=== PATIENT | male | born 1955 | race Caucasian/White ===

== ENCOUNTER 2018-03-26 13:07 | Inpatient (IN) | payer BC ==
[~2018-03-26] VITALS: Ht 177.8 cm; Wt 92.1 kg
--- OUTSIDE RECORDS SUMMARY | 2018-03-26 13:10 | XMS REPORT ---
Author Author [facility] Address Unknown Phone Unavailable Care Team Providers Care Nursery Supervisor Name Role Phone Unavailable Unavailable Payers Payer Name Policy Type Policy Number Effective Date Expiration Date Problems This patient has no known problems. Allergies, Adverse Reactions, Alerts Allergy Name Allergy Type Status Severity Reaction(s) Onset Date Inactive Date Treating Clinician Comments No Known Allergies DA Active U 2018-03-16 00:00:00 No Known Contrast Allergies DA Active U 2003-10-25 00:00:00 No Known Drug Allergies DA Active U 2003-10-25 00:00:00 No Known Food Allergies DA Active U 2003-10-25 00:00:00 No Known Other Allergies DA Active U 2003-10-25 00:00:00 Medications This patient has no known medications.
[2018-03-26] MEDS ORDERED: ASPIRIN 81 MG CHEW TAB PO ONE ×2 (13:30→16:00)
[2018-03-26] MEDS ORDERED: IPRATROPIUM BROMIDE 0.02% 2.5 ML NEB NEB STA (13:33)
[2018-03-26] MEDS ORDERED: ALBUTEROL SULF 0.083% NEB SOLN 3 ML NEB NEB STA (13:33)
[2018-03-26] MEDS ORDERED: SODIUM CHLORIDE 0.9% 1000ML 1,000 ML IV STA (13:44)
[2018-03-26] MEDS ORDERED: METHYLPREDNISOLONE SOD SUCC 125 MG/2ML VIAL IV ONE (13:45)
[2018-03-26 13:46] LABS: BASOPHILS % 0.2 % (0.0-1.0); EOSINOPHILS % 0.1 % (0.0-6.0); HEMATOCRIT 41.3 % (38.2-49.6); HEMOGLOBIN 14.6 g/dL (14.0-18.0); LYMPHOCYTES # (AUTO) 1.5 (1.0-3.2); LYMPHOCYTES % 8.3 % (18.0-39.1); MEAN CORPUSCULAR HEMOGLOBIN 30.5 pg (28-32); MEAN CORPUSCULAR HGB CONC 35.4 g/dL (31-35); MEAN CORPUSCULAR VOLUME 86.4 fL (81-99); MONOCYTES # (AUTO) 1.7 (0.2-0.8); MONOCYTES % 9.5 % (4.4-11.3); NEUTROPHILS # (AUTO) 13.8 (2.1-6.9); NEUTROPHILS % 79.3 % (38.7-80.0); PLATELET COUNT 113 x10e3/uL (140-360); RED BLOOD COUNT 4.78 x10e6/uL (4.3-5.7); RED CELL DISTRIBUTION WIDTH 12.7 % (11.7-14.4)
[2018-03-26 13:57] LABS: ALBUMIN 2.8 g/dL (3.5-5.0); ALBUMIN/GLOBULIN RATIO 0.8 (0.8-2.0); CALCIUM 8.2 mg/dL (8.4-10.2); CREATININE, SERUM 1.55 mg/dL (0.72-1.25)
--- NOTE | 2018-03-26 13:57 | Diagnostic Imaging Report ---
Frontal and lateral views of the chest. HISTORY: Possible pneumonia, cough, fever COMPARISON: None available. DISCUSSION: Lungs: Low lung volumes result in bibasilar vascular crowding, accentuation of the pulmonary interstitial markings, central pulmonary vasculature, and the cardiac silhouette. Allowing for these limitations, the findings are as follows: Mild elevation of the left hemidiaphragm. Bilateral increased interstitial markings in a peribronchial distribution. Mild volume loss at the left lung base with more confluent opacity. No evidence of a consolidative pneumonia or pulmonary alveolar edema. Pleura: Trace left pleural effusion. Heart and mediastinum: The cardiomediastinal silhouette appears unremarkable. Bones and soft tissues: Appear unremarkable. IMPRESSION: 1. Diffuse bilateral patchy interstitial and airspace opacities, considerations include a viral respiratory tract infection versus bronchopneumonia in the appropriate setting. 2. Low lung volumes and mild left basilar atelectasis. Signed by: Dr. Toan Jo D.O., M.M.M. on 03/26/2018 1:54 PM
[2018-03-26 14:04] LABS: CREATINE KINASE MB 2.2 ng/mL (0-5.0)
[2018-03-26 14:18] LABS: ABG HCO3 24 mmol/L (23-28); ABG PCO2 35 mmHg (41-51); ABG PH 7.45 (7.31-7.41); ABG PO2 56 mmHg (80-105)
[2018-03-26 15:14] LABS: BAND NEUTROPHILS % (MANUAL) 2 %; LYMPHOCYTES % (MANUAL) 15 % (19-48); MONOCYTES % (MANUAL) 9 % (3.4-9.0); NEUTROPHILS % (MANUAL) 74 % (40-74)
[2018-03-26 15:15] LABS: PLATELET ESTIMATE SLIGHTLY DECREASED; PLATELET MORPHOLOGY COMMENT NORMAL; RBC MORPHOLOGY COMMENT NORMAL
--- NOTE | 2018-03-26 15:52 | Diagnostic Imaging Report ---
CT CHEST WITH CONTRAST HISTORY: Shortness of breath, cough COMPARISON: Chest radiograph March 26, 2018 TECHNIQUE: CT scan of the chest WITH intravenous contrast, using PE protocol. The chest was scanned utilizing a multidetector helical scanner from the lung apex through the level of the adrenal glands. Thin section reconstructions were obtained with special concentration on the pulmonary arteries. IV CONTRAST: 100 cc of Isovue-370. PROTOCOL: PE RADIATION DOSE: Total DLP: 546.14 mGy*cm Dose modulation, iterative reconstruction, and/or weight based adjustment of the mA/kV was utilized to reduce the radiation dose to as low as reasonably achievable. COMPLICATIONS: None DISCUSSION: Lungs: Diffuse bilateral patchy interstitial and groundglass opacities, most notably in the right perihilar, right lower lobe and left lower lobe. Paraseptal emphysema. Numerous superimposed nodular opacities, civil rights representative examples include * Right upper lobe irregular 8 mm nodule (series 3 image 41). * Right pleural-based upper lobe 4 mm nodule (series 3 image 50). * Right middle lobe 10 mm nodule (series 3 image 67). * Right lower lobe 32 x 17 mm (series 3 image 58). * Left upper lobe 8 mm (series 3 image 36). * Left lower lobe 8 mm (series 3 image 36). * Left upper lobe 11 mm (series 3 image 42). * Left lower lobe 9 mm (series 3 image 51). Diffuse bronchial wall thickening. Vessels: A near complete to complete occlusion of a right lower lobe segmental artery (series 2 images 65 through 67). A small nonocclusive filling defect within a left lower lobe segmental branch (series 2 images 63-65). The pulmonary artery is within the upper limits of normal. Airways: The major airways are clear. Pleura: Trace left intermediate pleural fluid versus pleural thickening. Heart and mediastinum: The cardiac size is normal. Small low-density pericardial effusion. Abdomen: Limited evaluation of the upper abdomen. A partially visualized 5 mm nonobstructing calculus near the superior pole of the left kidney. Lymph nodes: No pathologically enlarged lymph node. Bones: A 15 mm sclerotic density within the posterior inferior aspect of T8. Mild accentuation of the thoracic kyphosis and multilevel degenerative disc changes. Soft tissues: Unremarkable IMPRESSION: 1. Bilateral segmental lower lobe pulmonary emboli, as detailed above. 2. Bilateral patchy interstitial and groundglass opacities, consider multifocal pneumonia with the possibility of superimposed small areas of infarction given the pulmonary emboli.. 2. Superimposed pulmonary nodules measuring up to 32 x 17 mm may reflect an evolving infectious or inflammatory process, but are worrisome for metastatic disease. Recommend short-term follow-up CT of the chest without contrast to evaluate for resolution. 3. Additionally, a 15 mm sclerotic density within the T8 vertebral body is further worrisome for metastatic disease. 4. Paraseptal emphysema and nonspecific bronchitis. Discussed with ACOSTA nIfante via phone on March 26, 2018 at 1448. The provider verbalizes an understanding. Signed by: Dr. Toan Jo D.O., M.M.M. on 03/26/2018 3:49 PM
[2018-03-26] MEDS ORDERED: AZITHROMYCIN 500MG/SOD CHL 0.9% 250ML BAG IV SCH (16:00)
[2018-03-26] MEDS ORDERED: CEFTRIAXONE SOD 1 GRAM/0.9% SOD CHL 50ML BAG IV SCH (16:00)
[2018-03-26] MEDS ORDERED: CEFEPIME 1GM/NS 0.9% 50 ML 50 ML IV ONE (16:15)
[2018-03-26] MEDS ORDERED: VANCOMYCIN 1GM/NS 250 ML 250 ML IV ONE (16:30)
[2018-03-26] MEDS ORDERED: ENOXAPARIN SOD INJ 60 MG/0.6 ML SYR SC SCH (17:00)
[2018-03-26 17:10] VITALS: BP 122/79
--- NOTE | 2018-03-26 17:10 | NUR ---
Received patient mid via wheelchair from ER. AAOX4 to time, person, place, situation. Respirations even and unlabored. O2 3L NC. Denies pain. Tele #1 ST 111 on continuous pulse ox 96%. Oriented patient to room. Instructed patient to use call light for assistance. Voiced understanding. Will continue to monitor.
[2018-03-26] MEDS ORDERED: LOSARTAN POTASS50 MG PO (17:14)
[2018-03-26 17:21] VITALS: BP 122/79
[2018-03-26 17:48] VITALS: BP 122/79
[2018-03-26] MEDS ORDERED: IOPAMIDOL 370 MG/ML 200 ML INFUS..BTL INJ ONE (18:32)
[2018-03-26] MEDS ORDERED: SODIUM CHLORIDE 0.9% 50ML 50 ML ONE (18:32)
[2018-03-26] MEDS ORDERED: SODIUM CHLORIDE 0.9% 250ML 0 ML ONE (18:33)
--- NOTE | 2018-03-26 18:36 | NUR ---
Kelly Reyes NP aware of CT results. See orders
[2018-03-26] MEDS ORDERED: ACETAMINOPHEN/CODEINE 300MG - 30MG TAB PO PRN (18:45)
[2018-03-26] MEDS ORDERED: ACETAMINOPHEN 325 MG TAB PO PRN (18:45)
[2018-03-26] MEDS ORDERED: ONDANSETRON HCL INJ 2MG/ML 2ML 2 MG/ML VIAL IV PRN (18:45)
[2018-03-26] MEDS ORDERED: HYDRALAZINE HCL 20 MG/ML VIAL IV PRN (18:45)
[2018-03-26] MEDS ORDERED: SODIUM CHLORIDE 0.9% 1000ML 1,000 ML ONE ×2 (18:47→23:50)
[2018-03-26] MEDS: AZITHROMYCIN 500MG/NS 250 ML 250 ML IV SCH (18:59)
[2018-03-26] MEDS: ALBUTEROL/IPRATROPIUM 3 ML NEB NEB SCH ×2 (19:00→22:55)
--- NOTE | 2018-03-26 19:01 | NUR ---
Report given to oncoming nurse of patients status. No s/s of acute distress noted.
--- NOTE | 2018-03-26 19:20 | NUR ---
Received patient awake on bed, family member at the bedside, patient is not in distress, no complaints of pain. Call light within easy reach, need sputum sample patient instructed and verbalized understanding. Will continue to monitor
[2018-03-26 19:54] VITALS: BP 101/66
[2018-03-26 20:55] VITALS: BP 101/66
[2018-03-26] MEDS ORDERED: GUAIFENESIN 600 MG TAB PO PRN (21:00)
[2018-03-26 23:49] VITALS: BP 116/78
[2018-03-27 02:45] LABS: CREATINE KINASE MB 1.8 ng/mL (0-5.0)
[2018-03-27] MEDS: ALBUTEROL/IPRATROPIUM 3 ML NEB NEB SCH ×6 (03:20→23:10)
[2018-03-27 04:00] VITALS: BP 115/68
[2018-03-27 07:19] LABS: BASOPHILS % 0.1 % (0.0-1.0); HEMATOCRIT 36.4 % (38.2-49.6); HEMOGLOBIN 13.2 g/dL (14.0-18.0); LYMPHOCYTES # (AUTO) 0.8 (1.0-3.2); LYMPHOCYTES % 3.7 % (18.0-39.1); MEAN CORPUSCULAR HEMOGLOBIN 31.6 pg (28-32); MEAN CORPUSCULAR HGB CONC 36.3 g/dL (31-35); MEAN CORPUSCULAR VOLUME 87.1 fL (81-99); NEUTROPHILS # (AUTO) 18.6 (2.1-6.9); NEUTROPHILS % 89.9 % (38.7-80.0); PLATELET COUNT 129 x10e3/uL (140-360); RED BLOOD COUNT 4.18 x10e6/uL (4.3-5.7); RED CELL DISTRIBUTION WIDTH 12.8 % (11.7-14.4)
[2018-03-27 07:48] LABS: CREATININE, SERUM 1.24 mg/dL (0.72-1.25); MAGNESIUM 2.2 MG/DL (1.3-2.1)
[2018-03-27 08:00] VITALS: BP 137/79
[2018-03-27 08:10] VITALS: BP 137/79
[2018-03-27] MEDS: LOSARTAN POTASSIUM 25 MG TAB PO SCH (08:10)
[2018-03-27] MEDS: OYST-CAL-D 500MG TABLET PO SCH ×2 (08:10→17:21)
[2018-03-27] MEDS: METHYLPREDNISOLONE SOD SUCC 40 MG/ML VIAL 1ML IV SCH ×2 (08:10→21:36)
--- NOTE | 2018-03-27 08:10 | NUR ---
PT RECEIVED SITTING UP IN BED, AA/O X3. NO C/O AT PRESENT. ASSESSMENT COMPLETE, VSS, SPO2 95% 3L. NONPRODUCTIVE COUGH. SEEN BY ACOSTA WELCH. DISCUSSED PLAN FOR THE DAY.
[2018-03-27 08:33] LABS: CREATINE KINASE 38 IU/L (30-200)
--- NOTE | 2018-03-27 09:41 | Consultation ---
DATE OF CONSULTATION: March 27, 2018 Thank you, Dr. Willoughby, for this consultation. This is a 62-year-old pleasant gentleman with a past medical history including hypertension and smoking. Currently, in the hospital with worsening shortness of breath, fatigue, lethargy, and tiredness. Symptoms started almost 2 months back. He was followed by PCP and recommendation to get CT scan. Patient went to [facility], but could not get CT scan. He was followed with primary doctor, and continued on nebulizer and medications. He also required antibiotic treatment. He was referred to MD Lozoya for further management. The patient was not diagnosed with any malignancy. There was concern about lung nodules. Patient is currently in the hospital with worsening shortness of breath and cough. He has been wheezing. No hematemesis, melena, hematochezia, or hemoptysis. No fever or chills reported. At admission, the patient had a CT scan, which shows bilateral patchy interstitial ground-glass opacities. It is also shows bilateral lower lobe pulmonary emboli. There was superimposed pulmonary nodules. The patient also has some sclerotic density in T8 vertebral body. The patient currently is started on antibiotics and Lovenox. I am currently following for further management. PAST MEDICAL HISTORY: Hypertension. ALLERGIES: NKA. MEDICATIONS: List is reviewed. SOCIAL HISTORY: The patient is a smoker. Started smoking at the age of 13 years. Recently, discontinued smoking. No alcohol or drugs. REVIEW OF SYSTEMS: A 12-point review of systems as per HPI. FAMILY HISTORY: Reviewed and noncontributory. PHYSICAL EXAMINATION GENERAL: Alert, awake and communicative. HEENT: Normocephalic and atraumatic. Sclerae pink. Conjunctivae clear. NECK: Supple. CHEST: Decreased breath sounds in the bases. CARDIOVASCULAR: Regular rate and rhythm. ABDOMEN: Soft and nontender. EXTREMITIES: No edema. LABS AND IMAGING: Reviewed. ASSESSMENT AND PLAN 1. The patient with a history of hypertension: Currently, in the hospital with worsening shortness of breath and cough. Workup so far showed pulmonary embolism. The patient has bilateral pulmonary emboli. The patient was started on Lovenox. Recommendation to continue Lovenox. The patient might need pulmonary followup and bronchoscopy. Switch to oral anticoagulation and discharge. 2. Pulmonary nodule: Concerning especially with a history of smoking. The patient will benefit from a PET computerized tomography as an outpatient. The patient might require possible bronchoscopy. 3. Pneumonia: The patient already started on azithromycin. Will monitor the patient. 4. Chronic obstructive pulmonary disease: The patient is on methylprednisolone and nebulizer treatment. Will continue current care. Will continue to follow the patient closely. Job#: [id number] RI
[2018-03-27 12:05] VITALS: BP 122/72
--- NOTE | 2018-03-27 14:56 | NUR ---
SOCIAL WORK INITIAL ASSESSMENT Staff Development Coordinator Rn to bedside to discuss plan of care with patient/family. CM/SW role and care transitions discussed. Anticipated discharge plan discussed along with duration of care. CM/SW discussed patients right to make decisions in care. CM/SW work hours given. Patient lives: IN HOUSE IN [place] WITH FAMILY AND IN APARTMENT UPSTAIRS HERE FOR WORK BY SELF Admit/Transfer: VIA ED FROM APARTMENT POA/Emergency contact: IS A[place]ANDRI[place] [phone] Current/Previous Home Health: NONE PCP/Follow-up Care: [facility] Current/Previous DME: NONE Other Services: QUIT SMOKING WITH PATCH 8 WEEKS AGO Employment Status: [email or web address] ([employer] Areas of Concerns: NONE Referral Needs: NA Education Needs: NA IMM/NATARAJAN given and signed (if applicable): NA Goal for discharge:STATES WILL RETURN TO [place] AND HOME WITH FAMILY UPON DISCHARGE CM/SW left business card at the bedside with contact information. Name and number was also written on the patients whiteboard. Patient verbalized understanding of discussion. CM will follow-up with ongoing discharge and transition of care needs.
--- NOTE | 2018-03-27 15:39 | NUR ---
Nutrition Intervention Note RD Recommendation(s) for Physician: -Rec regular diet as medically appropriate -Consider Ensure Compact with each meal if PO <50% -Obtain daily weight Plan of Care: RD following, monitoring for tolerance and adequacy Nutrition reason for involvement: Nutrition Risk Trigger MST RD Assessment 03/27 Chart reviewed. 62yo M, who is admitted for shortness of breath and cough. Visited pt in the room. Pt reports having good appetite with 100% observed lunch intake. Pt has been eating like usual but noticed some weight loss in the last month due to flu. His reported UBW ~195lbs; pt thinks he has lost ~10lbs in a months. (5% weight loss in 1 month significant) No GI complains noted. LBM 03/26, loose stool per pt. Pt denies any chewing or swallowing difficulty. No sign of muscle or fat loss upon NFPA. Will continue to monitor and follow. Principal Problems/Diagnoses: pulmonary embolism, PNA, COPD PMH: HTN GI: LBM 03/26, loose stool per pt Skin: intact Labs: (03/27) Na 133 L, BUN 27 H, Glucose 133 H, Ca 8.0 L, Mg 2.2 H Meds: Solu-medrol, abx Ht: 70in Wt: 183lb BMI: 26.3kg/m2 IBW: 166lb Malnutrition Evaluation (03/27/18) The patient does not meet criteria for a specified degree of malnutrition at this time. Will re-evaluate at follow-up as appropriate. Energy intake: No change Weight loss: 5% in 1 month (Acute) Fat loss: None Muscle loss: None Supporting Evidence: Fluid accumulation: unable to evaluate Functional Status: no changes Nutrition Prescription (Diet Order): cardiac diet Estimated Nutritional Needs: Calories: 1826 2075kcal(22-25kcal/kg/d) Weight used : Actual weight Protein: 83 125g(1-1.5g/kg/d) Weight used: Actual weight Diet Adequacy: Meeting calorie needs, Meeting protein needs Diet Education Needs Assessment: Diet education not indicated. Nutrition Care Level: low Nutrition Diagnosis: None at this time. Goal: Patient will meet 75-100% of estimated needs by follow up Progress: Goal Met Interventions: General healthful diet Monitoring/Evaluation: Total energy intake, Total protein intake, diet, Weight change Signed: Becky Souza, MS, RD, LD
[2018-03-27 16:30] VITALS: BP 119/75
[2018-03-27] MEDS: AZITHROMYCIN 500MG/NS 250 ML 250 ML IV SCH (17:21)
[2018-03-27] MEDS: PANTOPRAZOLE SOD 40 MG TABEC PO SCH (17:21)
[2018-03-27 20:14] VITALS: BP 125/73
[2018-03-27] MEDS: ENOXAPARIN INJ 80 MG/0.8 ML SYR SC SCH (21:36)
[2018-03-28] VITALS (7 sets, daily range): BP systolic 111–131; BP diastolic 70–80
[2018-03-28] MEDS: ALBUTEROL/IPRATROPIUM 3 ML NEB NEB SCH ×7 (02:50→23:28)
[2018-03-28 06:17] LABS: BASOPHILS % 0.1 % (0.0-1.0); HEMATOCRIT 41.1 % (38.2-49.6); HEMOGLOBIN 13.3 g/dL (14.0-18.0); LYMPHOCYTES # (AUTO) 0.7 (1.0-3.2); LYMPHOCYTES % 2.5 % (18.0-39.1); MEAN CORPUSCULAR HGB CONC 32.4 g/dL (31-35); MEAN CORPUSCULAR VOLUME 92.6 fL (81-99); MONOCYTES # (AUTO) 0.6 (0.2-0.8); MONOCYTES % 1.9 % (4.4-11.3); NEUTROPHILS # (AUTO) 27.5 (2.1-6.9); NEUTROPHILS % 93.9 % (38.7-80.0); PLATELET COUNT 159 x10e3/uL (140-360); RED BLOOD COUNT 4.44 x10e6/uL (4.3-5.7); RED CELL DISTRIBUTION WIDTH 12.9 % (11.7-14.4)
[2018-03-28 06:20] LABS: ANION GAP 16.7 mmol/L (8-16); CALCIUM 8.3 mg/dL (8.4-10.2); CREATININE, SERUM 1.48 mg/dL (0.72-1.25); MAGNESIUM 2.7 MG/DL (1.3-2.1); POTASSIUM 4.7 mmol/L (3.5-5.1)
--- NOTE | 2018-03-28 07:00 | NUR ---
Report received patient is awake and alert x3 in NAD. POC discussed. Patient instructed to call for assistance as needed and verbalized understanding. Call patrick within reach.
[2018-03-28 07:41] LABS: LYMPHOCYTES % (MANUAL) 4 % (19-48); MONOCYTES % (MANUAL) 2 % (3.4-9.0); NEUTROPHILS % (MANUAL) 94 % (40-74)
[2018-03-28 07:42] LABS: ANISOCYTOSIS SLIGHT; HYPOCHROMASIA SLIGHT; PLATELET ESTIMATE ADEQUATE; PLATELET MORPHOLOGY COMMENT NORMAL; RBC MORPHOLOGY COMMENT NORMAL
[2018-03-28] MEDS: PANTOPRAZOLE SOD 40 MG TABEC PO SCH ×2 (08:26→16:30)
[2018-03-28] MEDS: ENOXAPARIN INJ 80 MG/0.8 ML SYR SC SCH (08:27)
[2018-03-28] MEDS: METHYLPREDNISOLONE SOD SUCC 40 MG/ML VIAL 1ML IV SCH ×2 (08:27→17:00)
[2018-03-28] MEDS: OYST-CAL-D 500MG TABLET PO SCH ×2 (08:27→16:43)
[2018-03-28] MEDS: LOSARTAN POTASSIUM 25 MG TAB PO SCH (08:27)
--- NOTE | 2018-03-28 09:27 | Progress Note ---
DATE: March 28, 2018 Patient was seen and examined today. Patient appears comfortable. Shortness of breath has improved. He still requires oxygen. No chest pain. PHYSICAL EXAMINATION GENERAL: Alert, awake and communicative. HEENT: Normocephalic and atraumatic. Sclerae pink. Conjunctivae clear. NECK: Supple. CHEST: Decreased breath sounds in the bases. CARDIOVASCULAR: Regular rate and rhythm. ABDOMEN: Soft. EXTREMITIES: No edema. LABS AND IMAGING: Reviewed. ASSESSMENT AND PLAN 1. The patient has a history of hypertension. Admitted with shortness of breath. Workup is consistent with a pulmonary embolism, also pneumonia and chronic obstructive pulmonary disease. Patient is currently on Lovenox. Plan to switch from Lovenox to Xarelto today. We will monitor the patient closely. 2. Pulmonary nodule. The patient has a history of smoking, possible malignancy. PET scan as an outpatient. Patient already has an appointment to follow at [facility]. 3. Pneumonia. The patient is currently on antibiotic treatment. 4. Chronic obstructive pulmonary disease. The patient is currently on nebulizer and methylprednisolone treatment. 5. Leukocytosis, likely steroidal. 6. Continue current care. Will follow the patient. Job#: [id number]
--- NOTE | 2018-03-28 10:45 | NUR ---
Chris written information provided to patient.
[2018-03-28] MEDS: RIVAROXABAN 15 MG TABLET PO SCH ×2 (10:51→16:43)
--- NOTE | 2018-03-28 14:20 | NUR ---
Visit made by the Spiritual Care Department Pastoral Visitor, Gracie Roman. Pt out of room and no family at bedside. A card was left at the bedside to indicate a missed visit from a member of the Spiritual Care team and to inform the pt and family of the availability of a Patient Scheduling Coordinator 24 hours a day/7 days a week. A fixer boarding room will follow up as able. JAIRON WEN Patient Scheduling Coordinator Spiritual Care Department O: [phone] Pager: [phone] ([phone] number calling from)
--- NOTE | 2018-03-28 14:43 | NUR ---
RCD PT FROM OBSERVATION BY WHEEL CHAIR PT IS ALERT AND ORIENTED VITALS CHECKED PT RESTING ON BED FAMILY AT BED SIDE BED LOW AND LOCKED CALL LIGHT IN REACH
--- NOTE | 2018-03-28 14:45 | NUR ---
Report given to Lois Lomax RN. Patient moved to room 209 with all belongings in stable condition.
[2018-03-28] MEDS ORDERED: SODIUM CHLORIDE 0.9% 250ML 250 ML ONE (17:07)
[2018-03-28] MEDS: AZITHROMYCIN 500MG/NS 250 ML 250 ML IV SCH (17:41)
--- NOTE | 2018-03-28 19:00 | NUR ---
PT RESTING ON BED BED SIDE REPORT GIVEN TO ONCOMING NURSE
--- NOTE | 2018-03-28 19:18 | NUR ---
Patient received sitting in bed. AAO x 4. Patient had no complaints of pain. Respirations even and non-labored. Patient instructed to call for assistance when needed. Call light within reach.
[2018-03-29] VITALS (8 sets, daily range): BP systolic 111–124; BP diastolic 67–75
[2018-03-29] MEDS: METHYLPREDNISOLONE SOD SUCC 40 MG/ML VIAL 1ML IV SCH ×2 (02:30→09:00)
[2018-03-29] MEDS: ALBUTEROL/IPRATROPIUM 3 ML NEB NEB SCH ×5 (03:00→23:00)
--- NOTE | 2018-03-29 04:09 | NUR ---
Blood specimen sent to lab for analysis.
[2018-03-29 04:12] LABS: BASOPHILS % 0.1 % (0.0-1.0); HEMATOCRIT 36.7 % (38.2-49.6); HEMOGLOBIN 12.2 g/dL (14.0-18.0); LYMPHOCYTES # (AUTO) 0.7 (1.0-3.2); LYMPHOCYTES % 3.2 % (18.0-39.1); MEAN CORPUSCULAR HEMOGLOBIN 30.3 pg (28-32); MEAN CORPUSCULAR HGB CONC 33.2 g/dL (31-35); MEAN CORPUSCULAR VOLUME 91.3 fL (81-99); MONOCYTES # (AUTO) 0.6 (0.2-0.8); MONOCYTES % 2.7 % (4.4-11.3); NEUTROPHILS # (AUTO) 19.5 (2.1-6.9); NEUTROPHILS % 93.2 % (38.7-80.0); PLATELET COUNT 163 x10e3/uL (140-360); RED BLOOD COUNT 4.02 x10e6/uL (4.3-5.7); RED CELL DISTRIBUTION WIDTH 12.7 % (11.7-14.4)
[2018-03-29 04:26] LABS: ANION GAP 13.8 mmol/L (8-16); CALCIUM 8.4 mg/dL (8.4-10.2); CREATININE, SERUM 1.39 mg/dL (0.72-1.25); MAGNESIUM 2.1 MG/DL (1.3-2.1); POTASSIUM 4.8 mmol/L (3.5-5.1)
--- NOTE | 2018-03-29 07:00 | NUR ---
RCD PT AT BED PT IS ALERT AND ORIENTED PT RESTING ON BED IV PATENT FAMILY AT BED SIDE BED LOW AND LOCKED CALL LIGHT IN REACH
[2018-03-29] MEDS: PANTOPRAZOLE SOD 40 MG TABEC PO SCH ×2 (07:30→16:30)
[2018-03-29] MEDS: RIVAROXABAN 15 MG TABLET PO SCH ×2 (09:00→16:46)
[2018-03-29] MEDS: LOSARTAN POTASSIUM 25 MG TAB PO SCH (09:00)
[2018-03-29] MEDS: OYST-CAL-D 500MG TABLET PO SCH ×2 (09:00→16:46)
--- NOTE | 2018-03-29 09:14 | Progress Note ---
DATE: March 29, 2018 Patient was seen and examined today. Patient appears comfortable. No worsening event noted. Condition is improving. The patient is currently on anticoagulation and tolerating it very well. PHYSICAL EXAMINATION GENERAL: Alert, awake and communicative. HEENT: Normocephalic and atraumatic. Sclerae are pink. Conjunctivae are clear. NECK: Supple. CHEST: Decreased breath sounds in the bases. ABDOMEN: Soft. EXTREMITIES: No edema. LABS AND IMAGING: Reviewed. ASSESSMENT AND PLAN: The patient has a history of hypertension. Admitted with shortness of breath. Workup is consistent with a pulmonary embolism. The patient also has pulmonary nodule. The patient is currently on anticoagulation and tolerating it very well. Supposed to follow with MD Lozoya for pulmonary nodule. Clinical condition is improving. Continue on antibiotic for pneumonia. Will monitor the patient closely. Job#: [id number]
[2018-03-29] MEDS: LORATADINE 10 MG TAB PO SCH (09:30)
[2018-03-29] MEDS ORDERED: ZITHROMAX500 MG PO (09:33)
[2018-03-29] MEDS ORDERED: PROAIR HFA INH8.5 GM INH (09:33)
[2018-03-29] MEDS ORDERED: MUCINEX600 MG PO (09:33)
[2018-03-29] MEDS ORDERED: LORATADINE10 MG PO (09:33)
[2018-03-29] MEDS ORDERED: CEFUROXIME500 MG PO (09:33)
[2018-03-29] MEDS ORDERED: PREDNISONE5 MG PO (09:33)
[2018-03-29] MEDS ORDERED: XARELTO PO (09:41)
--- NOTE | 2018-03-29 10:31 | Diagnostic Imaging Report ---
EXAMINATION: CHEST SINGLE (PORTABLE) INDICATION: Pneumonia. COMPARISON: CT Chest 03/26/2018 and chest radiograph 03/26/2018. FINDINGS: TUBES and LINES: None. LUNGS: Low lung volumes which decreases sensitivity and specificity for pathology. There are patchy opacities at the bilateral lung bases and right upper lung. There is perihilar fullness and indistinctness of the pulmonary vasculature. PLEURA: No pleural effusion or pneumothorax. Mild elevation of left hemidiaphragm is unchanged. HEART AND MEDIASTINUM: The cardiomediastinal silhouette is unremarkable. BONES AND SOFT TISSUES: No acute osseous lesion. Soft tissues are unremarkable. UPPER ABDOMEN: No free air under the diaphragm. IMPRESSION: Low lung volumes with persistent multifocal opacities, which may reflect a combination of pneumonia and pulmonary edema. Pulmonary infarct is also possible as noted on CT from 03/26/2018. Signed by: Dr. Nieves Boykin MD on 03/29/2018 10:27 AM
--- NOTE | 2018-03-29 14:30 | NUR ---
CM SPOKE TO PATIENT AT BEDSIDE REGARDING PATIENT PLAN OF CARE AND DISCHARGE PLANNING. PATIENT AWARE THAT THEY WILL NEED HOME OXYGEN DELIVERED TO BEDSIDE PRIOR TO DISCHARGE FROM THE HOSPITAL. PATIENT EDUCATED ON HOME OXYGEN AND GIVEN CHOICES FOR HOME OXYGEN. PATIENT CHOSE [facility] TO SERVICE OXYGEN NEEDS. CHOICE LETTER SIGNED AND PLACED IN CHART. [facility] AT [phone]. PENDING INSURANCE APPROVAL AND DELIVERY TO BEDSIDE PRIOR TO DISCHARGE. [facility] Address: [address], [place] [address] (f) [phone]
[2018-03-29] MEDS: AZITHROMYCIN 500MG/NS 250 ML 250 ML IV SCH (17:35)
--- NOTE | 2018-03-29 18:40 | NUR ---
PATIENT GOT THE HOME OXYGEN NOTIFIED REBEKAH SHE SAID PT IS NOT READY TO GO HOME
--- NOTE | 2018-03-29 18:43 | NUR ---
PT RESTING ON BED BED SIDE REPORT GIVEN TO ONCOMING NURSE
--- NOTE | 2018-03-29 19:15 | NUR ---
Patient received sitting up in bed. AAO x 4. Family at bedside. Patient had no complaints of pain. Respirations even and non-labored. Patient instructed to call for assistance when needed. Call light within reach.
[2018-03-29] MEDS ORDERED: METHYLPREDNISOLONE SOD SUCC 40 MG/ML VIAL 1ML IV SCH (21:00)
[2018-03-30] VITALS (7 sets, daily range): BP systolic 105–124; BP diastolic 68–79
[2018-03-30] MEDS: ALBUTEROL/IPRATROPIUM 3 ML NEB NEB SCH ×6 (02:50→22:15)
--- NOTE | 2018-03-30 03:28 | NUR ---
Blood specimen sent to lab.
[2018-03-30 04:04] LABS: BASOPHILS % 0.1 % (0.0-1.0); HEMATOCRIT 38.3 % (38.2-49.6); HEMOGLOBIN 12.6 g/dL (14.0-18.0); LYMPHOCYTES # (AUTO) 0.5 (1.0-3.2); LYMPHOCYTES % 2.4 % (18.0-39.1); MEAN CORPUSCULAR HEMOGLOBIN 29.9 pg (28-32); MEAN CORPUSCULAR HGB CONC 32.9 g/dL (31-35); MONOCYTES # (AUTO) 0.4 (0.2-0.8); NEUTROPHILS # (AUTO) 19.5 (2.1-6.9); NEUTROPHILS % 94.4 % (38.7-80.0); PLATELET COUNT 169 x10e3/uL (140-360); RED BLOOD COUNT 4.21 x10e6/uL (4.3-5.7); RED CELL DISTRIBUTION WIDTH 12.8 % (11.7-14.4)
[2018-03-30 04:29] LABS: ANION GAP 14.1 mmol/L (8-16); CALCIUM 8.5 mg/dL (8.4-10.2); CREATININE, SERUM 1.37 mg/dL (0.72-1.25); MAGNESIUM 2.1 MG/DL (1.3-2.1); POTASSIUM 5.1 mmol/L (3.5-5.1)
--- NOTE | 2018-03-30 07:13 | NUR ---
Shift report given to oncoming nurse. Patient in stable condition.
--- NOTE | 2018-03-30 07:18 | NUR ---
pt awake resp even and unlabored at this time, pt arousal to name, pt has no c/o pain when asked, call light in reach, will cont to monitor.
[2018-03-30] MEDS: PANTOPRAZOLE SOD 40 MG TABEC PO SCH ×2 (07:30→17:32)
[2018-03-30] MEDS: OYST-CAL-D 500MG TABLET PO SCH ×2 (09:00→17:32)
[2018-03-30] MEDS: PREDNISONE 20 MG TAB PO SCH (09:00)
[2018-03-30] MEDS: LORATADINE 10 MG TAB PO SCH (09:00)
[2018-03-30] MEDS: RIVAROXABAN 15 MG TABLET PO SCH ×2 (09:00→17:32)
[2018-03-30] MEDS: LOSARTAN POTASSIUM 25 MG TAB PO SCH (09:00)
[2018-03-30] MEDS: LEVOFLOXACIN 750MG/D5W 150ML 150 ML IV SCH (10:49)
[2018-03-30] MEDS ORDERED: ALBUTEROL SULFATE HFA 8GM INHALATION AEROSOL INH PRN (16:00)
--- NOTE | 2018-03-30 16:42 | Progress Note ---
DATE: PULMONARY PROGRESS NOTE I am covering for Dr. Willoughby today. The patient reports feeling better. He has less dyspnea and less wheezing. He does not have any fever. OBJECTIVE VITALS: The patient is afebrile. The blood pressure is 105/68, and the pulse is 93. The saturation is 98% on 2 liters. HEENT: Examination shows no facial swelling or erythema. LYMPHATIC: No submandibular, cervical or supraclavicular adenopathy. CARDIAC: Regular rate and rhythm with normal S1 and S2. LUNGS: Auscultation of the lungs reveals clear breath sounds bilaterally. There is no wheezing. ABDOMEN: Soft and nontender. There is no rebound or guarding. EXTREMITIES: No leg edema or calf tenderness. There is no cyanosis or clubbing. NEUROLOGIC: Exam shows no focal abnormalities. RADIOGRAPHIC DATA: Chest CT shows bilateral segmental lower lobe pulmonary emboli as well as patchy ground-glass opacities. There are pulmonary nodules that measure 3 x 2 cm in the lower lung eddy. There is also a sclerotic lesion in the T8 vertebral body worrisome for a bone metastasis. IMPRESSION 1. Pulmonary emboli. 2. Pulmonary nodules and sclerotic bone lesion concerning for carcinoma. 3. Leukocytosis. 4. Pulmonary infiltrates. PLAN 1. Patient will continue Xarelto at 15 mg b.i.d. for a full week and then switch to 20 mg a day. 2. Continue antibiotics as an outpatient along with prednisone taper. 3. Patient is scheduled to follow up at [facility] for a PET scan. Job#: [id number]
--- NOTE | 2018-03-30 19:28 | NUR ---
Patient sitting up in bed. AAO x 4. No complaints of pain. Respirations even and unlabored. Fall precautions maintained. Call light within reach.
--- NOTE | 2018-03-30 19:41 | NUR ---
report given to oncoming nurse for continued care.
[2018-03-31] VITALS: BP 106/65
[2018-03-31] MEDS: ALBUTEROL/IPRATROPIUM 3 ML NEB NEB SCH ×4 (03:25→11:30)
--- NOTE | 2018-03-31 03:30 | NUR ---
Blood specimen sent to lab for analysis.
[2018-03-31 04:00] VITALS: BP 102/66
[2018-03-31 04:20] LABS: BASOPHILS % 0.1 % (0.0-1.0); EOSINOPHILS % 0.1 % (0.0-6.0); HEMATOCRIT 37.6 % (38.2-49.6); LYMPHOCYTES # (AUTO) 1.4 (1.0-3.2); MEAN CORPUSCULAR HEMOGLOBIN 30.9 pg (28-32); MEAN CORPUSCULAR HGB CONC 34.6 g/dL (31-35); MEAN CORPUSCULAR VOLUME 89.3 fL (81-99); MONOCYTES # (AUTO) 1.1 (0.2-0.8); MONOCYTES % 7.3 % (4.4-11.3); NEUTROPHILS # (AUTO) 12.8 (2.1-6.9); NEUTROPHILS % 82.5 % (38.7-80.0); PLATELET COUNT 170 x10e3/uL (140-360); RED BLOOD COUNT 4.21 x10e6/uL (4.3-5.7); RED CELL DISTRIBUTION WIDTH 12.9 % (11.7-14.4)
[2018-03-31 04:38] LABS: ANION GAP 13.4 mmol/L (8-16); CALCIUM 8.4 mg/dL (8.4-10.2); CREATININE, SERUM 1.48 mg/dL (0.72-1.25); MAGNESIUM 2.2 MG/DL (1.3-2.1); POTASSIUM 4.4 mmol/L (3.5-5.1)
--- NOTE | 2018-03-31 07:15 | NUR ---
PATIENT IS IN BED ASLEEP. BEDSIDE ROUNDS DONE. PATIENT HAS BEEN EXAMINED
[2018-03-31 08:00] VITALS: BP 117/74
[2018-03-31] MEDS ORDERED: PREDNISONE PEG (10:23)
[2018-03-31] MEDS ORDERED: LEVAQUIN500 MG PO (10:23)
--- NOTE | 2018-03-31 11:00 | NUR ---
DISCHARGED PATIENT, IV DISCONTINUED. FAMILY VERBALIZED UNDERSTANDING OF DISCHARGE INSTRUCTIONS. RX GIVEN TO PATIENT WITH THE DISCHARGE FOLDER.
[2018-03-31] MEDS: LOSARTAN POTASSIUM 25 MG TAB PO SCH (11:29)
[2018-03-31] MEDS: PANTOPRAZOLE SOD 40 MG TABEC PO SCH (11:29)
[2018-03-31] MEDS: LEVOFLOXACIN 750MG/D5W 150ML 150 ML IV SCH (11:29)
[2018-03-31] MEDS: LORATADINE 10 MG TAB PO SCH (11:29)
[2018-03-31] MEDS: PREDNISONE 20 MG TAB PO SCH (11:30)
[2018-03-31] MEDS: OYST-CAL-D 500MG TABLET PO SCH (11:30)
[2018-03-31] MEDS: RIVAROXABAN 15 MG TABLET PO SCH (11:30)
[2018-03-31 11:54] VITALS: BP 99/70
--- NOTE | 2018-03-31 12:23 | NUR ---
PATIENT WITH TANKS AT BEDSIDE. PATIENT TO DISCHARGE HOME WITH HOME OXYGEN FROM [facility]. PLEASE SEE PREVIOUS NOTE FOR ADDRESS AND PHONE NUMBERS.
--- NOTE | 2018-03-31 16:40 | Discharge Summary ---
ADMISSION DIAGNOSES 1. Community-acquired pneumonia. 2. Bilateral lower lobe pulmonary embolism. 3. Hypertension. 4. Pulmonary nodules. 5. Hypocalcemia. 6. Acute kidney injury versus chronic kidney disease. 7. Hyponatremia. 8. Transaminitis. DISCHARGE DIAGNOSES 1. Community-acquired pneumonia. 2. Bilateral lower lobe pulmonary embolism. 3. Hypertension. 4. Pulmonary nodules. 5. Hypocalcemia. 6. Acute kidney injury versus chronic kidney disease. 7. Hyponatremia. 8. Transaminitis. HISTORY: Patient with a history of high blood pressure. SURGICAL HISTORY: Left knee surgery times 4. FAMILY HISTORY: Noncontributory. SOCIAL HISTORY: Patient admits to quitting smoking about 2 months ago. He was smoking for about 20 years. He denies alcohol and illicit drug use. HOSPITAL COURSE: A 62-year-old male complains of shortness of breath and dry cough since February 2018. He went to his primary care and got a Z-Norbert and antibiotic shot, and other unknown meds on 2 different occasions with little improvement. Nothing improved or worsened the shortness of breath or cough. He denies productive cough, congestion, fever. He lives 3 hours away, and drives home every 2-3 days. He also traveled to [place] in December or January of 2017. He denies any lower limb swelling, erythema or pain. On admission, the patient was started on Zithromax, cefepime, nebs, Mucinex, and steroids, as well as Lovenox for the pulmonary embolism. Echo showed EF of 50% to 55%. Bilateral lower extremity venous Doppler negative. EKG showed sinus tach of 107. Chest x-ray showed diffuse bilateral opacities, interstitial and airspace opacities. Considerations include a viral respiratory tract infection versus bronchopneumonia. CT of the chest showed bilateral segmental lower lobe pulmonary emboli, bilateral patchy interstitial and ground-glass opacities. Consider multifocal pneumonia with the possibility of superimposed small areas of infarction given the pulmonary embolism. Superimposed pulmonary nodules measuring up to 32 x 17 mm may reflect an evolving infectious or inflammatory process, but are worrisome for metastatic disease. Additionally, a 15 mm sclerotic density within the T8 vertebral body is further worrisome for metastatic disease. Blood cultures were negative. Hematology/oncology consulted. Patient was switched to Xarelto 15 mg b.i.d., which he will take for 21 days, and follow up with hematology to change the dose after 21 days. Patient's antibiotics were switched to Levaquin. He is feeling much better once given the Levaquin. He will discharge home with prednisone, Claritin, Levaquin, Mucinex, and albuterol HFA inhaler. He will follow up with primary care in 1-2 weeks. Patient and understand discharge instructions and agreed to plan. Vital signs stable. Patient afebrile. Patient qualified for home oxygen, so case management set it up prior to discharge as well. DICTATED BY REBEKAH WILLIS NP Job#: [id number] RI
== END 2018-03-31 12:50 | disposition home or self-care (01) | DRG 177 ==
LOC: ER 13:07 → ERHOLD 16:09 → IMCU 17:04 → OBSVTOIN 03-27 09:46 → MED/SURG2 03-28 14:42
PROVIDERS: ADMIT Internal Medicine; ATTEND Internal Medicine
DX: J15.6 Pneumonia due to other Gram-negative bacteria (principal); I26.99 Other pulmonary embolism without acute cor pulmonale; N17.9 Acute kidney failure, unspecified; E87.1 Hypo-osmolality and hyponatremia; J44.0 Chronic obstructive pulmonary disease with (acute) lower respiratory infection; N18.4 Chronic kidney disease, stage 4 (severe); I10 Essential (primary) hypertension; R91.8 Other nonspecific abnormal finding of lung field; E83.51 Hypocalcemia; R00.0 Tachycardia, unspecified; I12.9 Hypertensive chronic kidney disease with stage 1 through stage 4 chronic kidney disease, or unspecified chronic kidney disease
CPT/HCPCS: 36415; 36600; 71045; 71046; 71260; 80048; 80053; 82378; 82550; 82553; 82805; 83735; 83880; 84484; 85025; 87040; 87400; 93005; 93306; 93970; 94640; 99284; G0378; J0456; J0692; J1650; J2920; J2930; J3370; J7030; J7050; J7512; Q9967

== ENCOUNTER 2018-04-08 13:24 | Inpatient (IN) | payer BC ==
[~2018-04-08] VITALS: Ht 177.8 cm; Wt 73.3 kg
[~2018-04-08 13:24] MED LIST: CEFUROXIME500 MG PO; LEVAQUIN500 MG PO; LORATADINE10 MG PO; LOSARTAN POTASS50 MG PO; MUCINEX600 MG PO; PREDNISONE PEG; PREDNISONE5 MG PO; PROAIR HFA INH8.5 GM INH; XARELTO PO; ZITHROMAX500 MG PO
[2018-04-08] MEDS ORDERED: SODIUM CHLORIDE 0.9% 1000ML 1,000 ML IV STA ×2 (13:40→13:46)
[2018-04-08 14:15] LABS: BASOPHILS % 0.1 % (0.0-1.0); EOSINOPHILS % 0.1 % (0.0-6.0); HEMATOCRIT 40.1 % (38.2-49.6); HEMOGLOBIN 14.1 g/dL (14.0-18.0); LYMPHOCYTES # (AUTO) 1.4 (1.0-3.2); LYMPHOCYTES % 9.5 % (18.0-39.1); MEAN CORPUSCULAR HEMOGLOBIN 30.3 pg (28-32); MEAN CORPUSCULAR HGB CONC 35.2 g/dL (31-35); MEAN CORPUSCULAR VOLUME 86.2 fL (81-99); MONOCYTES % 6.5 % (4.4-11.3); NEUTROPHILS # (AUTO) 12.6 (2.1-6.9); NEUTROPHILS % 83.1 % (38.7-80.0); PLATELET COUNT 160 x10e3/uL (140-360); RED BLOOD COUNT 4.65 x10e6/uL (4.3-5.7); RED CELL DISTRIBUTION WIDTH 13.3 % (11.7-14.4)
[2018-04-08] MEDS ORDERED: ONDANSETRON HCL INJ 2MG/ML 2ML 2 MG/ML VIAL IV ONE (14:15)
[2018-04-08 14:22] LABS: INR 1.63; PROTHROMBIN TIME 20.7 seconds (11.9-14.5)
[2018-04-08 14:23] LABS: PARTIAL THROMBOPLASTIN TIME 36.9 seconds (23.8-35.5)
[2018-04-08 14:29] LABS: ALBUMIN 3.1 g/dL (3.5-5.0); ANION GAP 16.2 mmol/L (8-16); CALCIUM 8.8 mg/dL (8.4-10.2); CREATININE, SERUM 1.95 mg/dL (0.72-1.25); POTASSIUM 4.2 mmol/L (3.5-5.1)
--- NOTE | 2018-04-08 14:50 | Diagnostic Imaging Report ---
CT Abdomen and Pelvis without contrast INDICATION: Back pain, hematuria, history of kidney stones TECHNIQUE: Thin collimation axial images obtained from the diaphragm to the level of the pubic symphysis without nonionic intravenous contrast. Dose reduction techniques used: Automated exposure control, adjustment of the mAs and/or kVp according to patient size, standardized low-dose protocol, and/or iterative reconstruction technique. RADIATION DOSE: Total DLP: 428.53 mGy*cm Estimated effective dose: (DLP x 0.015 x size factor) mSv CTDIvol has been reviewed. It is below the limits set by the Radiation Protocol Committee (RPC). COMPARISON: CT chest 03/26/2018. ABDOMEN FINDINGS: Lung Bases: Diffuse interstitial edema is similar. Multiple tiny pulmonary nodules are redemonstrated. Mass in the posterior right lower lobe measures 2.0 x 2.8 cm and is stable. There is centrilobular emphysema and diffuse bronchial wall thickening suggestive of bronchitis.. Circumferential pericardial effusion measures 1.8 cm and is stable. Liver: Normal in attenuation without mass. Gallbladder: Well distended. No gallstones or sludge. No ductal dilatation. Pancreas: Diffuse fatty atrophy. No mass or ductal dilatation. Spleen: Normal size. Low attenuating lesion in the upper hilum measures 9 mm and is stable. Adrenal Glands: Diffuse thickening of the adrenal glands. No discrete mass. Kidneys: Right: Multiple calculi measuring up to 5 mm. No perinephric inflammation. No cortical mass or hydronephrosis Left: Edematous with perinephric inflammation. Several calculi measure up to 2 mm. No collecting system dilatation. No soft tissue mass. No hydronephrosis. Lymph Nodes: Diffuse lymphadenopathy. A retroaortic lymph node in the inferior chest measures 1.6 cm. There are numerous enlarged lymph nodes throughout the upper abdomen measuring up to 1.8 cm in short axis. Numerous lymph nodes surrounding the aorta and IVC and measure up to 17 mm. Lymph nodes in the small bowel mesentery are increased in number and measure up to 12 mm. Lymph nodes in the pelvic sidewalls are enlarged and increased in number and measure up to 14 mm.. Aorta: Normal in diameter and diffusely calcified. IVC: Normal in morphology. The left external iliac vein is prominent.. There is fat inflammation surrounding the external iliac vessels. PELVIS FINDINGS: Bowel: Stomach: Normal in caliber with normal wall thickness. Small Bowel: Normal in caliber with normal wall thickness. Large Bowel: Normal in caliber with normal wall thickness. Appendix: Diminutive but normal. Bladder: Mild circumferential mural thickening. Prostate gland is mildly enlarged. Ureters: No ureteral dilatation or calculus. Small amount of pelvic ascites. No loculated fluid collections.. Soft tissues: Unremarkable. Bones: Diffuse degenerative changes of the spine. Sclerotic lesion in the inferior body of T8 is stable. No sclerotic lesions in the lumbar spine or pelvis. IMPRESSION: 1. Multiple pulmonary nodules with extensive abdominopelvic lymphadenopathy suggestive of a neoplastic process. Diffuse interstitial pulmonary thickening may be the result of lymphangitic spread of tumor. 2. Enlarged right external iliac vein with surrounding fat inflammation. Thrombus cannot be excluded. 3. Bilateral intrarenal calculi. No obstructive uropathy. Edema and perinephric inflammation left kidney may be the result of pyelonephritis. Please correlate with urinalysis/urine culture. 4. Large pericardial effusion is stable. Signed by: Dr. Cindy Estes MD on 04/08/2018 2:47 PM
--- NOTE | 2018-04-08 15:09 | NUR ---
NOTIFIED PHARMACY OF MORPHINE NOT AVAILABLE IN [place].
[2018-04-08] MEDS ORDERED: MORPHINE SULFATE 2 MG/ML SYR 1ML IV ONE (15:30)
[2018-04-08] MEDS ORDERED: MORPHINE SULFATE INJ 4 MG/ML INJ 1ML IV ONE (15:30)
--- NOTE | 2018-04-08 15:45 | NUR ---
BLADDER SCAN COMPLETED. 291 [address]IDUAL, NOTIFIED DR. FLORES
--- NOTE | 2018-04-08 15:49 | NUR ---
STAT ECHO ORDERED. CALLED MAL[facility] [employer] [facility] [employer] TO INFORM THAT TECH NEEDS TO BE CALLED OUT. DR. FLORES AWARE PENDING ARRIVAL OF TECH AT THIS TIME.
[2018-04-08] MEDS ORDERED: LIDOCAINE JELLY 2% 10ML URO-JET ONE (16:10)
[2018-04-08 16:27] LABS: CLARITY,URINE HAZY (CLEAR); COLOR,URINE RED (YELLOW); LEUKOCYTE ESTERASE ,URINE 1+ (NEGATIVE); NITRITE,URINE POSITIVE (NEGATIVE)
[2018-04-08 16:28] LABS: KETONES,URINE 1+ (NEGATIVE); PROTEIN,URINE DIPSTICK 3+ (NEGATIVE)
[2018-04-08 16:29] LABS: BILIRUBIN,URINE NEGATIVE (NEGATIVE); URINE UROBILINOGEN 4 mg/dL (0.2 - 1)
[2018-04-08 16:30] LABS: BACTERIA,URINE MODERATE /HPF; EPITHELIAL CELLS,URINE FEW /LPF; RBC,URINE >50 /HPF (0-5); WBC,URINE (MAN) >50 /HPF (0-5)
--- NOTE | 2018-04-08 16:55 | NUR ---
FIELD LIABILITY GENERALIST IN DEPARTMENT. AWAITING ALAS CATHETER INSERTION COMPLETION.
[2018-04-08] MEDS ORDERED: LIDOCAINE JELLY 2% 10ML URO-JET TOP ONE (17:00)
--- NOTE | 2018-04-08 17:00 | NUR ---
HEADACHE RESOLVED. PT WITH PAIN R/T URINARY CATHETER INSERTION
[2018-04-08] MEDS: LIDOCAINE JELLY 2% 10ML URO-JET TOP ONE ×2 (17:05→17:15)
--- NOTE | 2018-04-08 17:08 | NUR ---
I spoke with Dr Willoughby - wants consults - I spoke with Dr Castillo, Dr Ca, Dr Torres (who wants 24 Fr 3-way Barrera placed). Pt has large pericardial effusion on CT, will get STAT ECHO prior to admission here - if any evidence of tamponade will likely need transfer
--- NOTE | 2018-04-08 17:10 | NUR ---
URINE SAMPLE OBTAINED FROM URINARY CATHETER INSERTION. SENT TO LAB, NOTIFIED LAB TO SEND URINE CULTURE WITH CATHETER SAMPLE
[2018-04-08] MEDS: MEROPENEM 1GM 100 ML IV SCH ×2 (17:30→21:30)
--- NOTE | 2018-04-08 17:45 | NUR ---
PT WITH C/O BLADDER SPASMS. NOTIFIED DR. FLORES, REQUESTED ORDER FOR B&O SUPPOSITORY
--- NOTE | 2018-04-08 18:15 | NUR ---
REQUESTED B&O SUPPOSITORY FROM PHARMACY
[2018-04-08] MEDS ORDERED: VANCOMYCIN 1GM/NS 250 ML 250 ML IV ONE (18:30)
[2018-04-08] MEDS: BELLADONNA/OPIUM 30 MG SUPP RC PRN (18:33)
--- NOTE | 2018-04-08 19:00 | NUR ---
RECEIVED REPORT FROM OFF GOING NURSE BILLY DAI, PT SITTING ON SIDE OF BED IN HORRIBLE PAIN, AT BEDSIDE FOR SUPPORTIVE MEASURES. INFORMED PT NURSE HAD TO GET IN CONTACT WITH PHYSICIAN OR NPTO OBTAIN ORDER FOR PAIN MEDICATION. PT VERBALIZED UNDERSTANDING.
[2018-04-08 20:00] VITALS: BP 104/68
[2018-04-08] MEDS ORDERED: TRAMADOL HCL 50 MG TAB PO PRN (20:00)
[2018-04-08] MEDS ORDERED: MORPHINE SULFATE 2 MG/ML SYR 1ML IV PRN (20:00)
[2018-04-08] MEDS ORDERED: MORPHINE SULFATE INJ 4 MG/ML INJ 1ML ONE ×2 (20:16→23:22)
[2018-04-08 20:35] LABS: CREATINE KINASE MB 2.3 ng/mL (0-5.0)
--- NOTE | 2018-04-08 21:00 | NUR ---
CALLED DR JORDAN OFFICE AD OBTAINED AN ORDER FOR PAIN MEDICATION, WHICH PT WAS MEDICATED WITH. PT CONTINUES TO HAVE HEMATURIA. ALAS IRRIGATED DUE TO CLOTS PREVENTING URINE TO FLOW FROM THE CATHETER, PT TOLERATED WELL AN STATES IT DOESNT FLOW WELL, UNLESS YOU IRRIGATE IT. WHEN CATHETER ISNT IRRIGATED PT WILL STAND UP DUE TO HAVING THE FEELING OR URGE TO PEE AND HIS HEART RATE WILL GO UP INTO THE 130'S AND PT WILL GET SHORT OF BREATH AND NURSE WILL BE CALLED FOR ASSISTANC DUE TO LOW O2 SATS AND LOW B/P WITH SYSTOLIC INTO THE 90"AND DIASTOLIC INTO THE 50'S
[2018-04-08] MEDS: HYDROCODONE/APAP 10MG-325MG TAB PO PRN (21:55)
[2018-04-08] MEDS: FAMOTIDINE 20 MG/2 ML VIAL IV SCH (23:03)
[2018-04-08] MEDS: MORPHINE SULFATE INJ 4 MG/ML INJ 1ML IV PRN (23:25)
[2018-04-09] VITALS (8 sets, daily range): BP systolic 91–110; BP diastolic 55–88
--- NOTE | 2018-04-09 00:52 | Consultation ---
DATE OF CONSULTATION: April 08, 2018 PULMONARY/CRITICAL CARE CONSULTATION REFERRING PHYSICIAN: Dr. Willoughby. CHIEF COMPLAINT: Pulmonary emboli, pulmonary nodule, and hematuria. HISTORY OF PRESENT ILLNESS: The patient is a 62-year-old man. He was hospitalized last week with pulmonary emboli and bilateral pulmonary infiltrates. He also had a lung nodule and some adenopathy suggestive of malignancy. He was started on Xarelto. He subsequently went to [facility] for initial appointment. He was supposed to have an echocardiogram and further testing as an outpatient. Yesterday, the patient developed hematuria. He also complains of some pain in his lower abdomen. He notes a headache but no fevers. He has some mild dyspnea. He has no cough. PAST MEDICAL HISTORY: Hypertension. ALLERGIES: THE PATIENT HAS NO KNOWN DRUG ALLERGIES. FAMILY HISTORY: Family history is noncontributory. SOCIAL HISTORY: The patient has been a smoker in the past. He is not an active drinker. SURGICAL HISTORY: History of left knee surgery. REVIEW OF SYSTEMS: He reports headache. There is no fever. He has lost 15 pounds in the past 6 weeks. He has no sore throat or neck pain. He does have some lower back pain. He has no cough or dyspnea. He does not have chest pain. He has some lower abdominal pain. He notes some hematuria as well. He has no leg swelling or edema. He does not complain of any focal neurological complaints. PHYSICAL EXAMINATION VITAL SIGNS: Patient is afebrile. The blood pressure is 102/79 and pulse is 100-110. Saturation is 94%. HEENT: Shows no facial swelling or erythema. The nasal mucosa is normal. The oropharynx is normal. LYMPHATIC: Shows no submandibular, cervical, or supraclavicular adenopathy. CARDIAC: Reveals regular rate and rhythm with normal S1 and S2. There are no murmurs or rubs. LUNGS: Auscultation of the lungs reveals clear breath sounds bilaterally. There is no wheezing. ABDOMEN: Soft and nontender. These is no rebound or guarding. EXTREMITIES: Shows no leg edema or calf tenderness. There is no cyanosis or clubbing. SKIN: Shows no rashes. NEUROLOGICAL: Shows no focal abnormalities. RADIOGRAPHIC DATA: Abdominal and pelvic CT scan shows several pulmonary nodules with the largest one being 2 x 2.8 cm in the right lower lobe. There are also some interstitial infiltrates in the lower lobe suggestive of lymphangitic spread of tumor. There is some retroperitoneal adenopathy as well as a large pericardial effusion. LABORATORY DATA: White blood cell count is 15.13 with a hemoglobin of 14 and a platelet count of 160. BUN to creatinine ratio is 31 to 1.95. The sodium is 131. INR is 1.63. Urinalysis shows greater than 50 red blood cells. IMPRESSION 1. Recent pulmonary emboli with active hematuria. 2. Hematuria with acute blood loss. 3. Pulmonary nodule with lymphadenopathy and possible lymphangitic spread of tumor. 4. Pericardial effusion. 5. Hypertension. PLAN 1. Patient will have an echocardiogram now to look for any early signs of tamponade. A pericardiocentesis may be required. 2. Hold Xarelto. The patient will need an IVC filter because of his active bleeding and continued risk for pulmonary emboli. 3. Patient needs an MRI of the head because of the persistent headaches and the possibility of intracranial mass. 4. Patient will need a biopsy to look for cancer. The most accessible location is the 2 x 2.8 cm mass in the right lower lobe. This could be done by interventional radiology. 5. Three-way urinary catheter with irrigation. 6. Urology consultation. Case discussed with patient and as well as with emergency department physician. Job#: [id number] KIRAN DESIR
[2018-04-09] MEDS: HYDROCODONE/APAP 10MG-325MG TAB PO PRN ×3 (03:35→18:12)
--- NOTE | 2018-04-09 05:00 | NUR ---
IRRIGATED CATHETER THROUGHOUT THE NIGHT, AT BEDSIDE, CHARGE NURSE AWARE OF HEMATURIA, AND NEED FOR IRRIGATION, PT STABLE AT THIS POINT AND RESTING,
[2018-04-09 05:34] LABS: BASOPHILS % 0.2 % (0.0-1.0); HEMATOCRIT 33.4 % (38.2-49.6); HEMOGLOBIN 11.3 g/dL (14.0-18.0); LYMPHOCYTES % 7.5 % (18.0-39.1); MEAN CORPUSCULAR HEMOGLOBIN 30.1 pg (28-32); MEAN CORPUSCULAR HGB CONC 33.8 g/dL (31-35); MEAN CORPUSCULAR VOLUME 88.8 fL (81-99); MONOCYTES % 7.5 % (4.4-11.3); NEUTROPHILS # (AUTO) 11.6 (2.1-6.9); NEUTROPHILS % 83.9 % (38.7-80.0); PLATELET COUNT 125 x10e3/uL (140-360); RED BLOOD COUNT 3.76 x10e6/uL (4.3-5.7); RED CELL DISTRIBUTION WIDTH 13.5 % (11.7-14.4)
[2018-04-09 05:54] LABS: INR 1.24; PROTHROMBIN TIME 16.7 seconds (11.9-14.5)
[2018-04-09] MEDS: MORPHINE SULFATE INJ 4 MG/ML INJ 1ML IV PRN ×4 (06:03→20:08)
[2018-04-09 06:12] LABS: CREATINE KINASE MB 1.4 ng/mL (0-5.0)
--- NOTE | 2018-04-09 06:50 | NUR ---
REPORTED OFF TO BILLY, EVENTS THROUGHOUT THE NIGHT, HEMATURIA REMAINS IN CATHETER, AT BEDSIDE.
[2018-04-09 06:58] LABS: ALBUMIN 2.5 g/dL (3.5-5.0); ALBUMIN/GLOBULIN RATIO 1.1 (0.8-2.0); ANION GAP 14.6 mmol/L (8-16); CALCIUM 7.7 mg/dL (8.4-10.2); CREATININE, SERUM 1.88 mg/dL (0.72-1.25); POTASSIUM 4.6 mmol/L (3.5-5.1)
[2018-04-09] MEDS ORDERED: ACETAMINOPHEN 325 MG TAB PO PRN (08:15)
[2018-04-09] MEDS ORDERED: HYDRALAZINE HCL 20 MG/ML VIAL IV PRN (08:15)
--- NOTE | 2018-04-09 08:37 | Diagnostic Imaging Report ---
EXAM: XR CHEST 1 VIEW DATE: 04/09/2018 8:03 AM INDICATION: Pneumonia COMPARISON: 03/29/2018, no report available FINDINGS: Lines and Tubes: Numerous overlying wires appear external. Heart and Mediastinum: Enlarged. Lungs and Pleura: Moderate bilateral airspace opacities are present which could represent edema and/or pneumonia. Questionable trace effusions. Bones and Soft Tissues: No acute findings. IMPRESSION: Moderate bilateral airspace opacities are present which could represent edema and/or pneumonia. Signed by: Dr. Anjel Prieto MD on 04/09/2018 8:33 AM
[2018-04-09] MEDS: FAMOTIDINE 20 MG/2 ML VIAL IV SCH ×2 (08:52→20:08)
[2018-04-09] MEDS: OYST-CAL-D 500MG TABLET PO SCH ×2 (08:52→17:22)
[2018-04-09] MEDS: MEROPENEM 1GM 100 ML IV SCH ×2 (08:52→20:46)
--- NOTE | 2018-04-09 08:54 | NUR ---
PT RESTING IN ROOM, FAMILY AT BEDSIDE. REBEKAH SCREW MACHINE OPERATOR SWISS TYPE WAS ON UNIT, AWARE PT SOB ON EXERTION, DESATS TO 80%S AND ST 120S. PT CONTINUES TO HAVE FC WITH HEMATURIA. CURRENTLY ON 6LPM NC HIGHFLOW
[2018-04-09] MEDS ORDERED: FUROSEMIDE INJ 10 MG/ML 4 ML VIAL IV ONE (09:00)
[2018-04-09] MEDS: ONDANSETRON HCL INJ 2MG/ML 2ML 2 MG/ML VIAL IV PRN ×2 (09:06→15:56)
[2018-04-09] MEDS: ALBUTEROL/IPRATROPIUM 3 ML NEB NEB PRN ×3 (09:15→18:10)
[2018-04-09 12:07] LABS: HEMATOCRIT 35.1 % (38.2-49.6); HEMOGLOBIN 12.6 g/dL (14.0-18.0)
[2018-04-09] MEDS: GUAIFENESIN 600 MG TAB PO SCH ×2 (12:28→17:22)
[2018-04-09 12:33] LABS: CREATINE KINASE MB 1.7 ng/mL (0-5.0)
--- NOTE | 2018-04-09 15:34 | Consultation ---
DATE OF CONSULTATION: April 09, 2018 CARDIOLOGY CONSULTATION ATTENDING PHYSICIAN: Dr. Willoughby. Thank you so much for asking me to see this nice man in consultation. Mr. 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 CHIEF COMPLAINT: He presented to the emergency room when he noted blood in his urine. HISTORY OF PRESENT ILLNESS: The patient has recently been hospitalized at [facility] on March 26, 2018 when he had cough and shortness of breath and evaluation at that time suggested pulmonary nodules, pulmonary mass, and pulmonary emboli. He was started on Xarelto 15 mg b.i.d. on March 26, 2018. Venous Doppler scan of the legs did not show any evidence of thrombus at that time. PAST MEDICAL HISTORY: Also significant for previous left knee arthroscopes 5 different times by his report. He reports he has had a previous kidney stones, previous remote tonsillectomy. MEDICATIONS: Currently at home include Xarelto as above, Levaquin 500 mg daily, loratadine 10 mg daily, prednisone taper, ProAir inhaler, losartan for hypertension. PERSONAL AND SOCIAL HISTORY: The patient started smoking as a teenager and has smoked until now. REVIEW OF SYSTEMS CARDIAC: He knows of no cardiac diagnosis. No chest pain or palpitations. PHYSICAL EXAMINATION GENERAL: Shows pleasant man who is alert and coughing. VITAL SIGNS: Five feet 10 inches tall, 180 pounds. Blood pressure 109/88 and pulse 112 and regular. HEENT: Unremarkable. NECK: No jugular venous distention. THORAX: Heart sounds S1 and S2 are slightly distant, regular, slightly rapid. No murmurs. No rubs. LUNGS: Rhonchi in both sides, right louder than left. ABDOMEN: Normal bowel sounds. EXTREMITIES: No cyanosis, clubbing, or edema. PERTINENT LABORATORY STUDIES: Show a creatinine 1.88 today, BUN 29, alkaline phosphatase reported at 315 and also 241 with normal being less 150, bilirubin 1.9 on presentation, 1.4 today. Review of CAT scan shows pulmonary mass in the right lower lobe, 2.0 x 2.[address] of the abdomen shows inflammation around the external iliacs and one kidney as well small urinary calculi. Urinalysis shows 4+ blood. ASSESSMENT 1. Hematuria. 2. Recent pulmonary emboli. 3. Small pericardial effusion without evidence of tamponade. 4. Pulmonary mass and nodules. 5. Elevated alkaline phosphatase with CAT scan showing lesion in T8. PLAN: We will withhold Xarelto and plan placement of IVC filter in the morning. Further management based on clinical course. Thank for asking me to see him in consultation. Job#: [id number] AKFlavio cc:DR. DARÍO PALMA
--- NOTE | 2018-04-09 19:00 | NUR ---
RECEIVED REPORT FROM OFF GOING NURSE, PT AAO3, BREATHING EVEN AND UNLABORED PT STATES HE FEELS FINE HOWEVER HE CONTINUES TO HAVE HEMATURIA IN HIS URINE. INFORMED PT IRRIGATION WILL CONTINUE AND PT IS NPO AFTER MN FOR IVC FILTER, PT VERBALIZED UNDERSTANDING..
[2018-04-09 19:07] LABS: HEMATOCRIT 34.3 % (38.2-49.6); HEMOGLOBIN 11.7 g/dL (14.0-18.0)
--- NOTE | 2018-04-09 23:00 | NUR ---
MEDICATED PT DURNING THE NIGHT FOR BLADDER SPASMS PAIN AND IRRIGATED HIS ALAS CATHETER . INFORMED TO LET NURSE KNOW IF PT ISNT ABLE TO REST WELL..
[2018-04-10] VITALS (7 sets, daily range): BP systolic 92–108; BP diastolic 64–76
--- NOTE | 2018-04-10 04:45 | NUR ---
PT YELLED OUT THAT HE WAS SHORT OF BREATH, AND REQUESTED RESPIRATORY. NURSE CALLED NOÉ ARMSTRONG, GAVE SOME ORDERS TO ADMINISTER LASIX DUE TO WET LUNG SOUND, ORDERED PT TO BE PLACED ON BIPAP, & CXR, I WILL REPORT THIS TO ONCOMING NURSE..
[2018-04-10] MEDS ORDERED: FUROSEMIDE INJ 10 MG/ML 4 ML VIAL ONE (04:58)
[2018-04-10] MEDS ORDERED: FUROSEMIDE INJ 10 MG/ML 2 ML VIAL IV ONE (05:00)
[2018-04-10 05:17] LABS: BASOPHILS # (AUTO) 0.1 (0.0-0.1); BASOPHILS % 0.4 % (0.0-1.0); EOSINOPHILS % 0.1 % (0.0-6.0); HEMATOCRIT 36.2 % (38.2-49.6); HEMOGLOBIN 12.2 g/dL (14.0-18.0); LYMPHOCYTES # (AUTO) 1.5 (1.0-3.2); LYMPHOCYTES % 11.1 % (18.0-39.1); MEAN CORPUSCULAR HEMOGLOBIN 29.8 pg (28-32); MEAN CORPUSCULAR HGB CONC 33.7 g/dL (31-35); MEAN CORPUSCULAR VOLUME 88.3 fL (81-99); MONOCYTES # (AUTO) 1.3 (0.2-0.8); MONOCYTES % 9.4 % (4.4-11.3); NEUTROPHILS # (AUTO) 10.6 (2.1-6.9); NEUTROPHILS % 78.3 % (38.7-80.0); PLATELET COUNT 111 x10e3/uL (140-360); RED CELL DISTRIBUTION WIDTH 13.4 % (11.7-14.4)
[2018-04-10 05:35] LABS: ANION GAP 16.5 mmol/L (8-16); CALCIUM 8.3 mg/dL (8.4-10.2); CREATININE, SERUM 2.05 mg/dL (0.72-1.25); MAGNESIUM 1.9 MG/DL (1.3-2.1); POTASSIUM 4.5 mmol/L (3.5-5.1)
[2018-04-10] MEDS: GUAIFENESIN 600 MG TAB PO SCH ×4 (05:48→17:58)
[2018-04-10] MEDS: MORPHINE SULFATE INJ 4 MG/ML INJ 1ML IV PRN ×3 (05:52→23:31)
--- NOTE | 2018-04-10 05:52 | Diagnostic Imaging Report ---
CHEST SINGLE (PORTABLE), 04/10/2018 4:48 AM Technique: CHEST SINGLE (PORTABLE) Comparison: 04/09/2018 Clinical history: Shortness of breath Findings: See Impression Impression: 1. Stable extensive bilateral pulmonary opacities with interstitial and nodular component radiating from the [place]. This may reflect edema, atypical infection or even lymphangitic carcinomatosis. 2. Stable visualized enlarged cardiomediastinal silhouette. 3. Small left effusion versus pleural thickening. Signed by: Dr Zuleyka Manuel MD on 04/10/2018 5:48 AM
[2018-04-10 06:01] LABS: INR 1.18
[2018-04-10 06:02] LABS: FREE T4 (FREE THYROXINE) 1.1 ng/dL (0.9-1.8); THYROID STIMULATING HORMONE 5.766 uIU/mL (0.350-4.940)
--- NOTE | 2018-04-10 06:44 | NUR ---
PT EXPERIENCING SMALL CLOTS THROUGH ALAS CATHETER AT THIS TIME STILL HAVING A LOT
--- NOTE | 2018-04-10 07:21 | NUR ---
pt standing at bedside, family at bedside. sob. on nonrebreather o2 mask. npo. paged re labs.
[2018-04-10] MEDS: ALBUTEROL/IPRATROPIUM 3 ML NEB NEB PRN ×3 (07:55→19:55)
[2018-04-10] MEDS: MEROPENEM 1GM 100 ML IV SCH ×2 (08:24→20:32)
[2018-04-10] MEDS: FAMOTIDINE 20 MG/2 ML VIAL IV SCH (08:24)
[2018-04-10] MEDS: OYST-CAL-D 500MG TABLET PO SCH ×2 (08:24→17:58)
[2018-04-10] MEDS ORDERED: MIDAZOLAM HCL 2 MG/2 ML VIAL ONE (10:03)
[2018-04-10] MEDS ORDERED: SODIUM CHLORIDE 0.9% 1000ML 1,000 ML ONE (10:03)
[2018-04-10] MEDS ORDERED: FENTANYL CITRATE/PF 100MCG/2 ML INJ ONE (10:03)
[2018-04-10] MEDS ORDERED: IOPAMIDOL 370 MG/ML 200 ML INFUS..BTL INJ ONE (10:03)
[2018-04-10] MEDS ORDERED: HEPARIN SOD/SOD CHLORIDE 2,000 ML ONE (10:03)
[2018-04-10] MEDS ORDERED: LIDOCAINE HCL 1% LOCAL INJ 20 ML VIAL ONE (10:04)
--- NOTE | 2018-04-10 10:21 | NUR ---
pt leaving unit for procedure. dr lord on unit, aware of vs. dr sal informed of labs. per lab, sputum specimen still pending, ed pt has specimen cup at bedside, has not been expectorating. per lab, culture pending, ed lab was informed when order placed 2/3 to use sample obtained from er for more accurate results. per MO, urine located.
[2018-04-10] MEDS: CALCIUM GLUCONATE 10% INJ 9.3 MEQ in SODIUM CHLORIDE 0.9% 100 ML 100 ML IV ONE ×2 (10:45→11:23)
--- NOTE | 2018-04-10 11:24 | NUR ---
pt returned from procedure, vs stable. pressure dressing in place rt groin, pedal pulses bilat. family at bedside.
[2018-04-10] MEDS: HYDROCODONE/APAP 10MG-325MG TAB PO PRN ×2 (11:27→20:36)
[2018-04-10 12:17] LABS: HEMATOCRIT 33.8 % (38.2-49.6); HEMOGLOBIN 11.3 g/dL (14.0-18.0)
[2018-04-10] MEDS ORDERED: METHYLPREDNISOLONE SOD SUCC 125 MG/2ML VIAL IV ONE (13:00)
[2018-04-10] MEDS: ONDANSETRON HCL INJ 2MG/ML 2ML 2 MG/ML VIAL IV PRN (16:09)
--- NOTE | 2018-04-10 16:09 | NUR ---
pt resting in bed, family at bedside. bedrest time over, pressure dressing in place, CDI. no hardness noted at site. pedal pulses bilat. vs stable.
--- NOTE | 2018-04-10 16:31 | Operative Report ---
DATE OF PROCEDURE: April 10, 2018 ATTENDING PHYSICIAN: Dr. Chuck Raman. TITLE OF PROCEDURE: Inferior vena cava filter placement. DESCRIPTION OF PROCEDURE: The patient was brought to the dentures lab technician in a fasting and partially sedated state, premedicated with 0.5 mg Versed, and the right groin prepped with scrub and 2% Xylocaine. The right common femoral vein was entered with the percutaneous needle, and the short 6-Mongolian sheath was placed in the right common femoral vein. With the ruler behind the patient, a venogram was performed showing the bifurcation of the inferior vena cava into the iliac veins and also the location of the right renal vein. Then the short 6-Mongolian sheath was exchanged for the special sheath that accompanies the [place] vena cava filter. The sheath was advanced to the renal veins, and the filter was advanced to the end of the sheath and the sheath was removed, deploying the filter in good location. The catheter was removed and pressure held, and the patient was sent to his room in stable condition. There was no significant blood loss, no complication. The filter is a Lorena vena cava filter that is removable with a hook on the top placed from the right common femoral vein. The lot number is [id number]. FINAL ANALYSIS: Successful inferior vena cava filter placement. Job#: [id number] EV cc: DARÍO MONTENEGRO MD cc: CHUCK RAMAN MD MTDD
[2018-04-10] MEDS ORDERED: TRAMADOL HCL 50 MG TAB PO PRN (17:45)
[2018-04-10] MEDS: FAMOTIDINE 20 MG TAB PO SCH (17:59)
[2018-04-10 18:23] LABS: HEMATOCRIT 34.9 % (38.2-49.6)
--- NOTE | 2018-04-10 19:00 | NUR ---
Report received from AM RN Lesia. Patient received resting on his bed, patient's in the room. Denied pain and no SOB. Respiration even and unlabored. Patient had continuing on 6liters oxygen high flow via nasal canula,Spo2 maintained 94%. Bed in lower position and locked. Call patrick within reach. Will continue to monitor.
--- NOTE | 2018-04-10 22:40 | NUR ---
Medicated patient for pain on bladder area and irrigated Barrera catheter as ordered. V/S WNL. Will continue to monitor.
[2018-04-10 23:55] LABS: HEMATOCRIT 34.6 % (38.2-49.6); HEMOGLOBIN 11.8 g/dL (14.0-18.0)
[2018-04-11] VITALS (7 sets, daily range): BP systolic 100–121; BP diastolic 79–94
--- NOTE | 2018-04-11 00:12 | NUR ---
Pressure dressing in place on right groin.V/S WNL. Will continue to monitor.
[2018-04-11] MEDS: GUAIFENESIN 600 MG TAB PO SCH ×4 (01:27→21:58)
[2018-04-11] MEDS: MORPHINE SULFATE INJ 4 MG/ML INJ 1ML IV PRN ×4 (05:00→21:18)
--- NOTE | 2018-04-11 05:15 | NUR ---
Medicated patient for his pain on bladder area,assisted to irrigated Barrera catheter. Patient tolerated well. V/S WNL.Will continue to monitor.
[2018-04-11 05:27] LABS: ANION GAP 14.7 mmol/L (8-16); CALCIUM 8.1 mg/dL (8.4-10.2); CREATININE, SERUM 1.77 mg/dL (0.72-1.25); MAGNESIUM 2.1 MG/DL (1.3-2.1); POTASSIUM 4.7 mmol/L (3.5-5.1)
[2018-04-11 06:09] LABS: HEMATOCRIT 31.7 % (38.2-49.6); HEMOGLOBIN 10.7 g/dL (14.0-18.0); LYMPHOCYTES # (AUTO) 0.5 (1.0-3.2); LYMPHOCYTES % 6.6 % (18.0-39.1); MEAN CORPUSCULAR HEMOGLOBIN 29.6 pg (28-32); MEAN CORPUSCULAR HGB CONC 33.8 g/dL (31-35); MEAN CORPUSCULAR VOLUME 87.6 fL (81-99); MONOCYTES # (AUTO) 0.2 (0.2-0.8); MONOCYTES % 3.3 % (4.4-11.3); NEUTROPHILS # (AUTO) 6.2 (2.1-6.9); NEUTROPHILS % 89.5 % (38.7-80.0); RED BLOOD COUNT 3.62 x10e6/uL (4.3-5.7); RED CELL DISTRIBUTION WIDTH 13.3 % (11.7-14.4)
[2018-04-11 06:24] LABS: PLATELET COUNT 98 x10e3/uL (140-360)
--- NOTE | 2018-04-11 06:55 | NUR ---
Report given to oncoming MALAIKA Graf,walking round done.
[2018-04-11] MEDS: ALBUTEROL/IPRATROPIUM 3 ML NEB NEB PRN ×3 (07:10→19:56)
[2018-04-11] MEDS ORDERED: SODIUM CHLORIDE 0.9% 1000ML 500 ML IV ONE (08:00)
[2018-04-11 08:16] LABS: LYMPHOCYTES % (MANUAL) 3 % (19-48); MONOCYTES % (MANUAL) 2 % (3.4-9.0); NEUTROPHILS % (MANUAL) 95 % (40-74); PLATELET ESTIMATE MODERATELY DECREASED; PLATELET MORPHOLOGY COMMENT NORMAL; RBC MORPHOLOGY COMMENT NORMAL
[2018-04-11] MEDS: FAMOTIDINE 20 MG TAB PO SCH ×2 (08:20→17:05)
[2018-04-11] MEDS: OYST-CAL-D 500MG TABLET PO SCH ×2 (08:20→17:05)
[2018-04-11] MEDS: MEROPENEM 1GM 100 ML IV SCH ×2 (08:20→21:18)
--- NOTE | 2018-04-11 08:39 | NUR ---
dr sal aware of pt labs, orders recvd. pt educated is on fluid restriction of 1 liter daily. pt ed still needing sputum when produced
[2018-04-11] MEDS: ONDANSETRON HCL INJ 2MG/ML 2ML 2 MG/ML VIAL IV PRN ×3 (10:33→21:18)
--- NOTE | 2018-04-11 16:25 | Progress Note ---
DATE: April 11, 2018 The patient still reports some nonproductive cough and some dyspnea. He notes some wheezing at night. He also notes some chest congestion. He had his IVC filter placed. He has less blood in the Barrera bag. PHYSICAL EXAMINATION VITALS: The patient is afebrile. The blood pressure is 119/83 and saturation is 94% on 6 L. HEENT: Shows no facial swelling or erythema. CARDIAC: Reveals a regular rate and rhythm with a normal S1 and S2. There are no murmurs or rubs. LUNGS: Auscultation of the lungs reveals rhonchi in both lung eddy. There is a few expiratory wheezes. ABDOMEN: Soft and nontender. There is no rebound or guarding. EXTREMITIES: Shows no leg edema or calf tenderness. There is no cyanosis or clubbing. SKIN: Shows no rashes. NEUROLOGICAL: Shows no focal abnormalities. IMPRESSION 1. Bilateral infiltrates, probably representing lymphangitic spread of tumor. 2. 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 3. Wheezing and bronchospasm. 4. Pericardial effusion. 5. Hematuria with acute blood loss. 6. Hypertension. PLAN 1. Continue Solu-Medrol 60 mg IV q.12 h. along with bronchodilators. 2. Restart Xarelto. Patient should have a CT-guided biopsy of the posterior right lung mass, possibly a transbronchial biopsy to assess for malignancy. 3. Patient should have an MRI of the head for staging. 4. If the patient does not want the biopsy here and he is not having hematuria, then we should restart the anticoagulation as soon as feasible. 5. Continue current antibiotics and wait for culture results. Job#: [id number] MARY DESIR
[2018-04-11] MEDS: METHYLPREDNISOLONE SOD SUCC 40 MG/ML VIAL 1ML IV SCH ×2 (17:05→21:18)
[2018-04-11] MEDS: GUAIFENESIN/CODEINE 10 ML CUP PO PRN (17:08)
[2018-04-11] MEDS ORDERED: ENOXAPARIN SOD INJ 40 MG/0.4 ML SYR SC SCH (18:00)
[2018-04-11] MEDS: ENOXAPARIN SOD INJ 40 MG/0.4 ML SYR SC SCH (18:30)
--- NOTE | 2018-04-11 18:45 | NUR ---
pt respiratory decreasing, pt started on 6lpm high flow nc, desats to 70%-80% upon movement and standing up and takes a few minutes of slow deep breathing nc to increase to 88-90%. pt increased to 7lpm. dr suresh rounded, wanting high flow vapotherm which is unavailable currently, pt placed on 8lpm nc highflow and given solumedrol. pt sats increased to 95-98%. per pt, he has home o2 setup from recent hospital stay. dr sal was on unit, started pt on lovenox. pt and nurse to monitor urine/bleeding. urine currently tea/yellow colored. will pass along in report to notify md and stop lovenox if hematuria increases.
--- NOTE | 2018-04-11 21:18 | NUR ---
PATIENT C/O PAIN TO THE PUBIC AREA WITH PAIN SCORE #7, MEDICATED WITH MORPHINE ORDERED. CALL LIGHT WITHIN EASY REACH, INSTRUCTED TO CALL FOR ASSISTANCE UPON GETTING OUT OF THE BED.
[2018-04-12] VITALS (8 sets, daily range): BP systolic 101–134; BP diastolic 72–92
--- NOTE | 2018-04-12 00:42 | NUR ---
PATIENT IS ASLEEP, HE'S EASY TO AROUSE. HE DENIES PAIN AND SHORTNESS OF BREATH. URINE COLOR CLEAR AND STRAW WITHOUT BLOOD, PATIENT INSTRUCTED TO CALL FOR ASSISTANCE NEEDED.
--- NOTE | 2018-04-12 03:39 | NUR ---
PATIENT IS SOUNDLY ASLEEP WITHOUT DISTRESS, CALL LIGHT WITHIN EASY REACH. NO BLOOD NOTED TO THE URINE, CALL LIGHT WITHIN EASY REACH.
[2018-04-12 05:24] LABS: BASOPHILS % 0.1 % (0.0-1.0); HEMATOCRIT 29.8 % (38.2-49.6); HEMOGLOBIN 10.1 g/dL (14.0-18.0); LYMPHOCYTES # (AUTO) 0.5 (1.0-3.2); LYMPHOCYTES % 5.1 % (18.0-39.1); MEAN CORPUSCULAR HGB CONC 33.9 g/dL (31-35); MEAN CORPUSCULAR VOLUME 88.4 fL (81-99); MONOCYTES # (AUTO) 0.2 (0.2-0.8); MONOCYTES % 1.5 % (4.4-11.3); NEUTROPHILS # (AUTO) 9.1 (2.1-6.9); NEUTROPHILS % 92.6 % (38.7-80.0); PLATELET COUNT 116 x10e3/uL (140-360); RED BLOOD COUNT 3.37 x10e6/uL (4.3-5.7); RED CELL DISTRIBUTION WIDTH 13.4 % (11.7-14.4)
[2018-04-12] MEDS: MORPHINE SULFATE INJ 4 MG/ML INJ 1ML IV PRN ×3 (05:24→15:48)
[2018-04-12 05:37] LABS: INR 1.28; PARTIAL THROMBOPLASTIN TIME 36.6 seconds (23.8-35.5); PROTHROMBIN TIME 17.1 seconds (11.9-14.5)
[2018-04-12 05:46] LABS: ANION GAP 14.7 mmol/L (8-16); CALCIUM 8.4 mg/dL (8.4-10.2); CREATININE, SERUM 1.62 mg/dL (0.72-1.25); POTASSIUM 4.7 mmol/L (3.5-5.1)
--- NOTE | 2018-04-12 05:55 | NUR ---
AT 0520, PATIENT HAD HIS CALL LIGHT ON. UPON ASSESSMENT HE WAS OBSERVED STANDING AND HAVING DIFFICULTY BREATHING. HE C/O SEVERE PAIN TO THE BLADDER AREA FROM THE ALAS CATHETER. OXYGEN SATURATION READ 87% ON 10L/NC. THE PATIENT REFUSED TO HAVE BI-PAP APPLIED, NON REBREATHER MASK APPLIED AND RESPIRATORY THERAPIST NOTIFY. OXYGEN INCREASED TO 15L PER RESPIRATORY THERAPIST, SATURATION INCREASED TO 99-100%. PATIENT REFUSED SUPPOSITORY FOR PAIN AND BLADDER SPASM, HE STATES "IT DOES NOT WORK". STAFF NURSE ADMINISTERED MORPHINE ORDERED, PRIMARY NURSE STAYED WITH THE PATIENT FOR OVER 20MINUTES FOR CLOSE OBSERVATION UNTIL HE'S CALM DOWN. BLOOD PRESSURE AFTER THE PAIN MEDICATION DECREASE FROM 156/99 TO 110/86, HEART RATE 137 TO NOW 118. ALAS CATHETER WAS MANUALLY IRRIGATED WITH 30ML OF NORMAL SALINE, NO BLOOD CLOTS NOTED AND URINE REMAINS FREE OF BLOOD.
[2018-04-12] MEDS: ENOXAPARIN SOD INJ 40 MG/0.4 ML SYR SC SCH ×2 (06:12→18:22)
[2018-04-12] MEDS: ALBUTEROL/IPRATROPIUM 3 ML NEB NEB PRN ×3 (07:00→19:43)
[2018-04-12] MEDS: OYST-CAL-D 500MG TABLET PO SCH ×2 (09:00→17:00)
[2018-04-12] MEDS: GUAIFENESIN 600 MG TAB PO SCH (09:00)
[2018-04-12] MEDS: FAMOTIDINE 20 MG TAB PO SCH ×2 (10:20→18:22)
[2018-04-12] MEDS: METHYLPREDNISOLONE SOD SUCC 40 MG/ML VIAL 1ML IV SCH ×2 (10:20→20:53)
[2018-04-12] MEDS: MEROPENEM 1GM 100 ML IV SCH ×2 (10:20→20:53)
[2018-04-12] MEDS: GUAIFENESIN/CODEINE 10 ML CUP PO PRN ×2 (10:26→15:48)
--- NOTE | 2018-04-12 11:55 | NUR ---
MELLISSA SPOKE TO DR. RAMAN REGARDING PATIENT POC AND DISCHARGE PLAN. PATIENT CURRENTLY ON 8 L HIGH FLOW AND DOES NOT HAVE HOME OXYGEN. PATIENT NOT ABLE TO MAINTAIN SATURATIONS WHEN WEANING. PATIENT STARTED ON BRONCHODILATORS AND STEROIDS. PENDING PATIENT RESPONSE TO TREATMENT AND WEAN TO DETERMINE DISCHARGE PLAN. CHRISTY MALLOY NOTIFIED.
[2018-04-12] MEDS: AZITHROMYCIN 500MG/NS 250 ML 250 ML IV SCH (15:47)
--- NOTE | 2018-04-12 17:07 | Diagnostic Imaging Report ---
CT CHEST, ABDOMEN, AND PELVIS WITH CONTRAST HISTORY: Worsening consolidation in lungs; abdominal pain COMPARISON: CT PE 03/26/2018, chest radiograph 04/10/[address] Abdomen/Pelvis without contrast 04/08/2018. TECHNIQUE: CT scan of the chest, abdomen, and pelvis without intravenous contrast. The chest, abdomen, and pelvis was scanned utilizing a multidetector helical scanner from the lung apex to the level of the upper thighs. Routine protocol was used. IV CONTRAST: 100 cc of Isovue-370. RADIATION DOSE: Total DLP Chest: 587.1 mGy*cm Total DLP Abdomen: 394.9 mGy*cm Dose modulation, iterative reconstruction, and/or weight based adjustment of the mA/kV was utilized to reduce the radiation dose to as low as reasonably achievable. COMPLICATIONS: None DISCUSSION: Lungs and pleura: There is similar appearance of diffuse bilateral interstitial and groundglass opacities, most pronounced in the right perihilar and bilateral lower lobes. There are paraseptal emphysematous changes. Majority of the bilateral pulmonary nodules are unchanged compared to chest CT from 03/26/2018. For example, the right lower lobe pulmonary mass measures up to 3.2 cm on series 3, image 59, unchanged. Additional left lower lobe pulmonary nodule measuring 0.9 cm on image 55 is unchanged. The left upper lobe pulmonary nodule on image 47 measures up to 1.4 cm, slightly increased in size from 1.2 cm on the prior study. A right upper lobe nodular opacity measuring up to 0.7 cm on image 44, previously measured 0.9 cm by my measurement. Heart and mediastinum: Known pulmonary embolism cannot be evaluated in the absence of IV contrast. The thyroid gland is unremarkable. No cardiomegaly. Interval decrease in size of a small pericardial effusion. No mediastinal or hilar lymphadenopathy. HEPATOBILIARY: No focal hepatic lesions. No biliary ductal dilatation. SPLEEN: No splenomegaly. Hypodensity anteriorly measuring 9 mm is unchanged. PANCREAS: No focal masses or ductal dilatation. ADRENALS: No adrenal nodules. Diffuse thickening of bilateral adrenal glands. KIDNEYS/URETERS: No hydronephrosis or solid mass lesions. Bilateral nonobstructing stones, measuring up to 5 mm on the right and 2 mm on the left. PELVIC ORGANS/BLADDER: Mild prostatomegaly. Barrera catheter is present within a partially decompressed bladder. PERITONEUM / RETROPERITONEUM: No free air or fluid. LYMPH NODES: Again noted is diffuse lymphadenopathy, including a 1.5 retrocrural lymph node, and multiple lymph nodes in the upper abdomen measuring up to 1.8 cm. Multiple retroperitoneal lymph nodes measure up to 1.6 cm, and pelvic sidewall lymph nodes measure up to 1.3 cm. VESSELS: Status post interval placement of a suprarenal IVC filter. Interval decrease in stranding surrounding an enlarged right external iliac vein. GI TRACT: No distention or wall thickening. Bones/Soft tissues: A 15 mm sclerotic density within the posterior inferior aspect of T8 is again noted. Multilevel degenerative changes. IMPRESSION: Similar appearance of bilateral pulmonary nodules, largest measuring up to 3.2 cm in the right lower lobe. Some of the nodules are increased in size, while others are decreased, but the majority are unchanged in size. Differential includes infectious/inflammatory processes as well as metastatic disease. Follow-up chest CT is suggested in 8-12 weeks to assess for change. Similar appearance of bilateral interstitial and groundglass opacities which could represent any combination of pulmonary edema, multifocal pneumonia, lymphangitic carcinomatosis, and pulmonary infarct. Interval increase in trace left pleural effusion and decrease in small pericardial effusion. Known pulmonary emboli cannot be evaluated in the absence of IV contrast. Similar appearance of intra-abdominal lymphadenopathy, suspicious for metastatic disease. Decreased inflammatory changes surrounding the right external iliac vein. Status post interval placement of suprarenal IVC filter. Signed by: Dr. Nieves Boykin MD on 04/12/2018 5:03 PM
[2018-04-12] MEDS: HYDROCODONE/APAP 10MG-325MG TAB PO PRN (20:53)
[2018-04-13] VITALS (7 sets, daily range): BP systolic 103–130; BP diastolic 84–95
[2018-04-13] MEDS: MORPHINE SULFATE INJ 4 MG/ML INJ 1ML IV PRN ×2 (04:11→16:12)
[2018-04-13 04:58] LABS: BASOPHILS % 0.1 % (0.0-1.0); HEMATOCRIT 31.2 % (38.2-49.6); HEMOGLOBIN 10.5 g/dL (14.0-18.0); LYMPHOCYTES # (AUTO) 0.4 (1.0-3.2); LYMPHOCYTES % 3.8 % (18.0-39.1); MEAN CORPUSCULAR HEMOGLOBIN 29.8 pg (28-32); MEAN CORPUSCULAR HGB CONC 33.7 g/dL (31-35); MEAN CORPUSCULAR VOLUME 88.6 fL (81-99); MONOCYTES # (AUTO) 0.3 (0.2-0.8); NEUTROPHILS % 92.4 % (38.7-80.0); PLATELET COUNT 132 x10e3/uL (140-360); RED BLOOD COUNT 3.52 x10e6/uL (4.3-5.7); RED CELL DISTRIBUTION WIDTH 13.3 % (11.7-14.4)
[2018-04-13 05:11] LABS: INR 1.26; PROTHROMBIN TIME 16.9 seconds (11.9-14.5)
[2018-04-13 05:16] LABS: ANION GAP 14.8 mmol/L (8-16); CALCIUM 8.3 mg/dL (8.4-10.2); CREATININE, SERUM 1.57 mg/dL (0.72-1.25); MAGNESIUM 2.3 MG/DL (1.3-2.1); POTASSIUM 4.8 mmol/L (3.5-5.1)
[2018-04-13] MEDS: FAMOTIDINE 20 MG TAB PO SCH ×2 (07:25→16:27)
[2018-04-13] MEDS: GUAIFENESIN/CODEINE 10 ML CUP PO SCH ×3 (07:25→18:41)
[2018-04-13] MEDS: MEROPENEM 1GM 100 ML IV SCH ×2 (09:36→21:13)
[2018-04-13] MEDS: METHYLPREDNISOLONE SOD SUCC 40 MG/ML VIAL 1ML IV SCH ×2 (09:36→21:13)
--- NOTE | 2018-04-13 10:20 | Consultation ---
DATE OF CONSULTATION: April 13, 2018 ATTENDING PHYSICIAN: Tam Willoughby MD HISTORY: This is a gentleman with a past medical history that includes hypertension and smoking. He had a recent hospital admission with worsening shortness of breath, fatigue, lethargy and tiredness. He had those symptoms for the last 2 months. He had outpatient CAT scan which showed a concerning lung mass. The patient was referred to [facility] for further evaluation. In between, the patient had worsening shortness of breath. He came to [facility] for further workup. The patient had a CAT scan which showed bilateral interstitial ground-glass opacity. It also showed bilateral lower lobe pulmonary emboli. There were some pulmonary nodules with sclerotic density in T8 vertebral body. The patient was started on anticoagulation. The patient chose to go to [facility] for further workup and evaluation. The patient is admitted this time with worsening headache and hematuria. The patient was on Xarelto at home. He feels fatigued and lethargic. He was followed with asw specialist. At that time, a CT-guided lung biopsy was recommended. The patient's anticoagulation was discontinued. Hematuria also resolved. The patient was followed with urologist. The patient also had a CT of the abdomen and pelvis which showed intra-abdominal lymphadenopathy suspicious for metastatic disease. IR is on the case for further management including biopsy. Current hemoglobin is 10 and platelet count 132. White cell count is stable. PAST MEDICAL HISTORY: Hypertension. SOCIAL HISTORY: The patient is a smoker. He has smoked most of his life. No alcohol or drugs. REVIEW OF SYSTEMS: A 12-point review of systems as per HPI. FAMILY HISTORY: Reviewed and noncontributory. PHYSICAL EXAMINATION GENERAL: Alert, awake, communicative. HEENT: Normocephalic and atraumatic. Sclerae pink and conjunctivae clear. NECK: Supple. CHEST: Decreased breath sounds at the bases. CARDIOVASCULAR: Regular rate and rhythm. ABDOMEN: Soft. EXTREMITIES: No edema. LABS AND IMAGING: Reviewed. ASSESSMENT AND PLAN: Patient with history of multiple medical conditions. I am currently following for: 1. Recently diagnosed lung nodule with intra-abdominal lymphadenopathy. The patient is supposed to follow with IR for CT possible lymph node biopsy. Likely etiology is primary lung malignancy, possible advanced stage. Further recommendations and treatment as per pathology report. Will follow the patient closely. 2. Pulmonary embolism. The patient was on Xarelto. Admitted with hematuria. Anticoagulation was discontinued. Hematuria resolved. Plan to resume anticoagulation treatment after procedure. 3. Will continue the remaining care. Will follow the patient closely. Job#: [id number]
[2018-04-13] MEDS: HYDROCODONE/APAP 10MG-325MG TAB PO PRN ×2 (12:43→19:59)
--- NOTE | 2018-04-13 13:15 | NUR ---
ST Note: Order for bedside swallow eval noted. Attempted at 1155 and again at 1250 to complete eval. Pt reported he was in a lot of pain and asked for eval to be deferred to a later time at both attempts. Nurse Helena aware of pt c/o pain. Will return later today to complete eval time permitting.
[2018-04-13] MEDS: AZITHROMYCIN 500MG/NS 250 ML 250 ML IV SCH (16:00)
--- NOTE | 2018-04-13 16:54 | Progress Note ---
DATE: April 13, 2018 PULMONARY PROGRESS NOTE Patient switched to nasal cannula today, but still has some dyspnea. Hematology/oncology saw the patient, and arranged for a CT-guided biopsy tomorrow. PHYSICAL EXAMINATION VITALS: The blood pressure 130/88 and the pulse ox is 93% on 8 L with Venturi mask. CARDIAC: Reveals regular rate and rhythm with a normal S1 and S2. LUNGS: Auscultation of the lungs reveals clear breath sounds bilaterally. There is no wheezing. ABDOMEN: Soft and nontender. There is no rebound or guarding. EXTREMITIES: Shows no leg edema or calf tissue. There is no cyanosis or clubbing. SKIN: Shows no rashes. NEUROLOGICAL: Shows no focal abnormalities. IMPRESSION 1. 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 2. Hematuria. 3. Pulmonary emboli. 4. Hypertension. 5. Pericardial effusion. PLAN 1. Await CT-guided biopsy. 2. Continue antibiotics and Solu-Medrol. 3. Lovenox was held because of recurrent hematuria. 4. Hold nebulizer treatments because of bronchial irritation and worsening dyspnea with treatments. Job#: [id number] MARY DESIR
--- NOTE | 2018-04-13 19:15 | NUR ---
RECEIVED REPORT FROM OFF GOING NURSE @ PT'S BEDSIDE.PT AAOX3, RESTING IN BED, DAUGHTER AND AT BEDSIDE. PT STATES HE'S IN ALOT OF PAIN. INFORMED HIM TO AKKOW ME TO LOOK AT ORDERS AND I WILL BE BACK TO MEDICATE HIM
--- NOTE | 2018-04-13 21:00 | NUR ---
DAUGHTER STAYING WITH PT AT BEDSIDE, PT MEDICATED WITH MORPHINE EARLIER, STATES IT HELPS THE PAIN BETTER THAN NORCO, . PT REMAINS NPO FOR FINE NEEDLE ASPIRATION.
[2018-04-14] VITALS (8 sets, daily range): BP systolic 99–121; BP diastolic 70–89
[2018-04-14] MEDS: GUAIFENESIN/CODEINE 10 ML CUP PO SCH ×4 (00:42→16:24)
[2018-04-14 04:55] LABS: BASOPHILS % 0.1 % (0.0-1.0); HEMOGLOBIN 10.6 g/dL (14.0-18.0); LYMPHOCYTES # (AUTO) 1.1 (1.0-3.2); LYMPHOCYTES % 9.9 % (18.0-39.1); MEAN CORPUSCULAR HEMOGLOBIN 29.8 pg (28-32); MEAN CORPUSCULAR HGB CONC 33.1 g/dL (31-35); MEAN CORPUSCULAR VOLUME 89.9 fL (81-99); MONOCYTES # (AUTO) 1.1 (0.2-0.8); MONOCYTES % 9.1 % (4.4-11.3); NEUTROPHILS # (AUTO) 9.2 (2.1-6.9); NEUTROPHILS % 79.9 % (38.7-80.0); PLATELET COUNT 119 x10e3/uL (140-360); RED BLOOD COUNT 3.56 x10e6/uL (4.3-5.7); RED CELL DISTRIBUTION WIDTH 13.3 % (11.7-14.4)
[2018-04-14 05:11] LABS: ANION GAP 13.3 mmol/L (8-16); CALCIUM 8.3 mg/dL (8.4-10.2); CREATININE, SERUM 1.55 mg/dL (0.72-1.25); MAGNESIUM 2.7 MG/DL (1.3-2.1); POTASSIUM 5.3 mmol/L (3.5-5.1)
--- NOTE | 2018-04-14 06:37 | NUR ---
HELD ROBITUSSIN WITH CODEINE DUE TO PT TOO SLEEPY, WILL INFORM ONCOMING DOMINIC.
[2018-04-14] MEDS: FAMOTIDINE 20 MG TAB PO SCH ×2 (06:59→16:24)
--- NOTE | 2018-04-14 07:12 | NUR ---
REPORTED OFF TO ONCOMING NURSE BILLY RN, PT STABLE SITTING ON SIDE OF BED DAUGHTER IN ROOM
[2018-04-14] MEDS: MORPHINE SULFATE INJ 4 MG/ML INJ 1ML IV PRN ×4 (07:29→23:16)
[2018-04-14] MEDS: ONDANSETRON HCL INJ 2MG/ML 2ML 2 MG/ML VIAL IV PRN ×2 (07:29→18:46)
[2018-04-14] MEDS: MEROPENEM 1GM 100 ML IV SCH ×2 (08:52→20:35)
[2018-04-14] MEDS: METHYLPREDNISOLONE SOD SUCC 40 MG/ML VIAL 1ML IV SCH ×2 (08:52→20:36)
--- NOTE | 2018-04-14 08:55 | Progress Note ---
DATE: April 14, 2018 SUBJECTIVE: Patient seen and examined today. Patient appeared better. Patient is scheduled for the biopsy. Clinical condition is stable. Anticoagulation is on hold. PHYSICAL EXAMINATION: GENERAL: Alert, awake, communicative. HEENT: Atraumatic. Sclerae pale. Conjunctivae clear. NECK: Supple. CHEST: Decreased breath sounds at bases. CARDIOVASCULAR: Regular rate and rhythm. EXTREMITIES: No edema. LABS AND IMAGING: Reviewed. ASSESSMENT AND PLAN: Patient with history of pulmonary embolism, lung mass, abdominal lymphadenopathy. Patient is currently waiting for CT-guided lymph node biopsy. Anticoagulation is on hold. Blood count is stable. RECOMMENDATION: Continue current care. Resume anticoagulation after procedure. Continue remaining care. Will follow patient closely. Job#: [id number]
--- NOTE | 2018-04-14 09:16 | NUR ---
per radiology crystal, dr stewart reviewed sx plan for abd lymph node biopsy but unable to do procedure based on location etc, per chriss battery tester field do lung biopsy instead. updated orders and pt, consent to be obtained once md speaks with pt about changed procedure.
--- NOTE | 2018-04-14 09:42 | NUR ---
ST NOTE: Pt NPO for biopsy, will check pt status later today to follow up with diet tolerance. BSE completed 04/13/18 with rec for regular texture and thin liquids.
[2018-04-14] MEDS ORDERED: FUROSEMIDE INJ 10 MG/ML 4 ML VIAL IV ONE (10:30)
--- NOTE | 2018-04-14 10:33 | NUR ---
Brigette KEY CUTTER on unit, reviewed new procedure with pt and ordered to medicate for pain now. updated radiology pt ready.
--- NOTE | 2018-04-14 11:01 | NUR ---
biopsy cancelled, per dr corona pt has high risk with current respiratory status, pt and family agree more comfortable with postponing until tuesday. us to be ordered to eval fluid on left per ct.
--- NOTE | 2018-04-14 12:24 | Diagnostic Imaging Report ---
Limited bilateral chest ultrasound History: Follow-up of pleural effusion demonstrated on CT. Comparison: CT Chest 04/12/2018. Technique/findings: Limited bilateral chest ultrasound was performed to evaluate for pleural effusion. Trace left pleural effusion and no right pleural effusion identified. IMPRESSION: Trace left pleural effusion and no right pleural effusion identified. Signed by: Dr. Nieves Boykin MD on 04/14/2018 12:19 PM
--- NOTE | 2018-04-14 13:45 | NUR ---
CASE MANAGEMENT INITIAL ASSESSMENT Stacker Attendant to bedside to discuss plan of care with patient/family. CM/SW role and care transitions discussed. Anticipated discharge plan discussed along with duration of care. CM/SW discussed patients right to make decisions in care. CM/SW work hours given. Patient lives: W IN A HOME Admit/Transfer: ER Hospital/ER visits since last admit: 2 WEEKS AGO; 03/26-03/31 POA/Emergency contact: [place]/ @ [phone] Current/Previous Home Health: NONE PCP/Follow-up Care: DR. HENDERSON Current/Previous DME: HOME O2 Medications (referring to index hospitalization or the first time you were in the hospital) a. Were changes made in your medications when you were in the hospital on [date of index hospitalization]? Yes Explain: STARTED BLOOD THINNERS b. Did you understand the changes? Yes c. Were you able to obtain your new medications right away? Yes Explain: d. Were you able to take your medications like the doctor wanted you to? Yes e. Did the hospital give you an accurate, easy to understand list of medications when you left? Yes Explain: TAPERED THE STEROIDS, BUT STILL HAD 4 LEFT. 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 DOC'S ALL SAY CONFLICTING ANSWERS IMM/NATARAJAN given and signed (if applicable): N/A Goal for discharge: RETURN HOME SAFELY, EVEN IF HE HAS TO GO TO ANOTHER FACILITY FIRST. CM/SW left business card at the bedside with contact information. Name and number was also written on the patients whiteboard. Patient verbalized understanding of discussion. CM will follow-up with ongoing discharge and transition of care needs. Addendum: 04/14/18 at 1405 by Susan Chavarria CM ABOVE NOTE LATE ENTRY: 04/11/2018
[2018-04-14] MEDS: HYDROCODONE/APAP 10MG-325MG TAB PO PRN (13:49)
--- NOTE | 2018-04-14 14:05 | NUR ---
LATE ENTRY: 04/11/2018 MET W PT AND FAMILY AT THE BEDSIDE TO DISCUSS LTAC. PT PROVIDED CHOICE. STATES HE WOULD LIKE TO GO TO THE [facility] [address]. CONFIRMED CHRISTIE. CHOICE LETTER WAS SIGNED AND COPY TO PT AND COPY TO CHART. JUAN JOSE SORIANO WAS NOTIFIED. Addendum: 04/14/18 at 1522 by Susan Chavarria CM INCORRECT DATE ABOVE. LATE ENTRY WAS 04/13/2018
--- NOTE | 2018-04-14 15:11 | NUR ---
Nutrition Screen Note RD Recommendation for Physician: -Continue regular diet as ordered Plan of Care: RD following, monitoring for tolerance and adequacy Nutrition reason for involvement: LOS Primary Diagnose(s): 1. 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 2. Hematuria. PMH: Hypertension, pulmonary embolism, lung mass, abdominal lymphadenopathy Ht: 70in Wt: 180lb BMI: 25.8kg/m2 IBW: 166lb RD Assessment: (04/14) Chart reviewed. Labs and meds reviewed. 62yo M, who is admitted for hematuria. Patient is currently waiting for CT-guided lymph node biopsy on Tuesday. Anticoagulation is on hold. 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 Pt denied chewing/swallowing problems and nausea/vomiting. Pt reported not liking hospital foods; family has been bringing foods from home. Will continue to monitor and follow. Current Diet: regular diet Malnutrition Evaluation (date of eval) The patient does not meet criteria for a specified degree of malnutrition at this time. Will re-evaluate at follow-up as appropriate. Diet Education Needs Assessment: Diet education not indicated. Nutrition Care Level: low Signed: Becky Souza, MS, RD, LD
[2018-04-14] MEDS ORDERED: ENOXAPARIN SOD INJ 60 MG/0.6 ML SYR SC ONE (16:00)
[2018-04-14] MEDS: AZITHROMYCIN 500MG/NS 250 ML 250 ML IV SCH (16:24)
--- NOTE | 2018-04-14 16:48 | Progress Note ---
DATE: April 14, 2018 PULMONARY CRITICAL CARE PROGRESS NOTE The patient went for a CT-guided biopsy, but radiology was unable to do it without anesthesia assistance. The procedure will have to be rescheduled for Tuesday with anesthesia present. The patient complains of some bladder spasms. He is receiving the belladonna and opium suppositories. He has no further hematuria. He still has some dyspnea. PHYSICAL EXAMINATION VITALS: The blood pressure is 99/83 and the saturation is 99% on 10 L. Pulse is 108. HEENT: Shows no facial swelling or erythema. The nasal mucosa is normal. The oropharynx is normal. LYMPHATIC: Shows no submandibular, cervical or supraclavicular adenopathy. CARDIAC: Reveals a regular rate and rhythm with a normal S1 and S2. There are no murmurs or rubs. LUNGS: Auscultation of the lungs reveals clear breath sounds bilaterally. There is no wheezing. ABDOMEN: Soft and nontender. There is no rebound or guarding. EXTREMITIES: Shows no leg edema or calf tenderness. There is no cyanosis or clubbing. SKIN: Shows no rashes. NEUROLOGICAL: Shows no focal abnormalities. IMPRESSION 1. Pulmonary mass with lymphangitic spread of tumor. 2. Pulmonary emboli. 3. Hematuria. 4. Hypertension. PLAN 1. CT-guided biopsy will be rescheduled for Tuesday with anesthesia present. 2. Continue antibiotics and Solu-Medrol. 3. Infectious disease consultation. 4. Can give Lovenox today and tomorrow morning, but we will need to hold it at least 24 hours prior to any biopsy. 5. Case discussed with the patient's family and ACOSTA Reyes and Dr. Phillip Bruno. Job#: [id number] MARY DESIR
[2018-04-14] MEDS: PHENAZOPYRIDINE HCL 100 MG TAB PO SCH (20:36)
[2018-04-14] MEDS: BELLADONNA/OPIUM 30 MG SUPP RC PRN (20:36)
--- NOTE | 2018-04-14 21:35 | NUR ---
Report received from AM RN Lesia. Patient stand up to the bedside.Family at the bedside.V/S WNL.Denied pain and no SOB.No respiratory distress noted. Patient continuing on 10 liters high flow oxygen via nasal canula, Spo2 maintained 94% and BIPAP @bedside. Bed in lower position,locked. Call patrick within reach. Will continue to monitor.
--- NOTE | 2018-04-14 23:38 | NUR ---
Medicated patient for his pain on bladder area,Irrigated with 30ml NS at this time.Will continue to monitor.
--- NOTE | 2018-04-14 23:40 | NUR ---
Patient connected to BIPAP at this time, will continue to monitor.
[2018-04-15 04:58] VITALS: BP 112/86
[2018-04-15 05:24] LABS: BASOPHILS % 0.1 % (0.0-1.0); LYMPHOCYTES # (AUTO) 0.7 (1.0-3.2); LYMPHOCYTES % 7.6 % (18.0-39.1); MEAN CORPUSCULAR HEMOGLOBIN 30.2 pg (28-32); MEAN CORPUSCULAR HGB CONC 33.3 g/dL (31-35); MEAN CORPUSCULAR VOLUME 90.7 fL (81-99); MONOCYTES # (AUTO) 0.7 (0.2-0.8); MONOCYTES % 6.8 % (4.4-11.3); NEUTROPHILS # (AUTO) 8.1 (2.1-6.9); NEUTROPHILS % 84.3 % (38.7-80.0); PLATELET COUNT 121 x10e3/uL (140-360); RED BLOOD COUNT 3.64 x10e6/uL (4.3-5.7); RED CELL DISTRIBUTION WIDTH 13.3 % (11.7-14.4)
[2018-04-15 05:43] LABS: ALBUMIN 2.7 g/dL (3.5-5.0); ANION GAP 16.9 mmol/L (8-16); CREATININE, SERUM 1.62 mg/dL (0.72-1.25); POTASSIUM 4.9 mmol/L (3.5-5.1)
[2018-04-15] MEDS: GUAIFENESIN/CODEINE 10 ML CUP PO SCH ×4 (06:00→21:57)
--- NOTE | 2018-04-15 07:10 | NUR ---
Report given to oncoming MALAIKA Graf ,walking round done.
--- NOTE | 2018-04-15 07:26 | NUR ---
pt sleeping, currently on bipap. will continue to monitor.
[2018-04-15 07:55] VITALS: BP 111/84
[2018-04-15 07:57] VITALS: BP 111/84
[2018-04-15] MEDS: ONDANSETRON HCL INJ 2MG/ML 2ML 2 MG/ML VIAL IV PRN (08:45)
[2018-04-15] MEDS: FAMOTIDINE 20 MG TAB PO SCH ×2 (08:45→16:48)
[2018-04-15] MEDS: METHYLPREDNISOLONE SOD SUCC 40 MG/ML VIAL 1ML IV SCH ×2 (08:45→21:57)
[2018-04-15] MEDS: ENOXAPARIN SOD INJ 60 MG/0.6 ML SYR SC SCH ×3 (08:45→21:57)
[2018-04-15] MEDS: MEROPENEM 1GM 100 ML IV SCH (08:45)
[2018-04-15] MEDS: PHENAZOPYRIDINE HCL 100 MG TAB PO SCH ×3 (08:45→21:57)
[2018-04-15] MEDS: MORPHINE SULFATE INJ 4 MG/ML INJ 1ML IV PRN ×4 (08:46→22:16)
[2018-04-15] MEDS ORDERED: ENOXAPARIN SOD INJ 60 MG/0.6 ML SYR SC ONE (09:00)
[2018-04-15] MEDS: BELLADONNA/OPIUM 30 MG SUPP RC PRN ×2 (09:41→15:39)
--- NOTE | 2018-04-15 10:10 | Progress Note ---
DATE: April 15, 2018 PULMONARY/CRITICAL CARE PROGRESS NOTE SUBJECTIVE: Patient started back on Lovenox 60 mg subcu q.12 last night. He wore BiPAP during the night. He complains of a dry mouth and discomfort from the BiPAP. No fevers. He still is requiring oxygen. PHYSICAL EXAMINATION VITAL SIGNS: The blood pressure is 112/86 with saturation of 100% while on the BiPAP. Respiratory rate was 15. HEENT: No facial swelling or erythema. LYMPHATIC: No submandibular, cervical, or supraclavicular adenopathy. CARDIAC: Regular rate and rhythm with normal S1 and S2. There are no murmurs or rubs. LUNGS: Auscultation of the lungs reveals decreased breath sounds at the bases. There is no wheezing. ABDOMEN: Soft, nontender. There is no rebound or guarding. EXTREMITIES: No leg edema. : There is no blood in the Barrera bag. LABORATORY DATA: BUN to creatinine ratio is 46 to 1.62 and the other electrolytes are within normal limits. The white blood cell count is 9.6 and hemoglobin is 11. The platelet count is 121. The INR is 1.26 with PT of 16.9 from the 7th. IMPRESSION 1. Pulmonary mass with probable lymphangitic spread of tumor. 2. Pulmonary emboli. 3. Hematuria. 4. Hypertension. PLAN 1. Continue Lovenox 60 mg subcutaneous q.12, will need to be stopped at least 24 hours prior to any procedure. 2. Reschedule a CT-guided biopsy for Tuesday with anesthesia present. 3. Continue antibiotics. 4. Continue Solu-Medrol. Job#: [id number] FILOMENA DESIR
[2018-04-15 12:27] VITALS: BP 116/86
[2018-04-15] MEDS: CEFTRIAXONE SOD 1 GM/NS 50 ML 50 ML IV SCH (12:27)
--- NOTE | 2018-04-15 14:05 | Consultation ---
DATE OF CONSULTATION: April 15, 2018 HPI: Mr. Tam Roche is a nice 62-year-old gentleman who was has been sick for almost a month now, getting weaker, some cough. No fever or chills. Losing weight. He was here recently, was diagnosed with pneumonia, went home, came back again and he was diagnosed with pulmonary embolism and bilateral pulmonary infiltrates, lungs nodules, some adenopathy suggestive of malignancy, was started on Xarelto. Subsequently went to [facility] for appointment. He was supposed to have an echocardiogram for further testing, but he came back here with hematuria. The patient was admitted. I was asked to see him today. Patient is currently on meropenem. Patient denies any fever or chills, but he has been having weight loss and he in general is just not feeling well. He is a little bit anxious. PAST MEDICAL HISTORY: Hypertension. PAST SURGICAL HISTORY: Denies. ALLERGIES: NKA. SOCIAL HISTORY: There is smoking, he smoked half a pack a day for more than 50 years, he quit recently. He also had left knee surgery. REVIEW OF SYSTEMS: At present time; GENERAL: He is feeling weak. No fever or chills. HEENT: There is no headache, visual changes, or hearing changes. Other symptoms within normal limits. PHYSICAL EXAMINATION GENERAL: He is currently alert and oriented, does not seem to be in acute distress. VITAL SIGNS: Stable, currently afebrile. HEENT: Normocephalic, not appear icteric. NECK: Supple. No JVD. No lymphadenopathy. No thyromegaly. CHEST: Few crackles. HEART: S1, S2. ABDOMEN: Soft. Bowel sounds positive. EXTREMITIES: No edema. SKIN: No rash. IMPRESSION AND PLAN: Pulmonary mass, concern about malignancy. I think we need to do a CT-guided biopsy to confirm. Should biopsy reveal infectious pathology such as macrobacterium or fungal, then we will address it, but in the meantime, I will treat superimposed postobstructive pneumonia. I have simplified his regimen to Rocephin and 5 days of azithromycin. Discussed with internal medicine. Job#: [id number] FILOMENA DESIR
[2018-04-15] MEDS: AZITHROMYCIN 500MG/NS 250 ML 250 ML IV SCH (14:38)
[2018-04-15 16:00] VITALS: BP 114/95
[2018-04-15] MEDS: HYDROCODONE/APAP 10MG-325MG TAB PO PRN ×2 (17:49→21:58)
--- NOTE | 2018-04-15 18:15 | NUR ---
pt continues to have pain, when 'bladder spasms'/abd pains occur he stands on side of bed to help alleviate pain, pt desats quickly to 70s and takes a few minutes to stabilize unless placed on o2 mask or bipap. updated Brigette SHANE, new consult for Dr Bro. new orders recvd.
[2018-04-15] MEDS: HYDROMORPHONE 2MG/ML 2 MG/ML ML IV PRN (18:40)
[2018-04-15] MEDS: FENTANYL 25 MCG/HR PATCH TOP SCH (18:41)
--- NOTE | 2018-04-15 19:26 | Progress Note ---
DATE: April 15, 2018 SUBJECTIVE: Patient seen and examined today. Patient appeared comfortable, clinically doing better. He was tachycardic this morning, responded very well with the BiPAP. Patient could not receive procedure yesterday because of increased risk of procedure. The procedure got change from lymph node biopsy to the lung biopsy. Patient is schedule for procedure Tuesday. Patient was started on Lovenox. He received 1 dose, did well. PHYSICAL EXAMINATION GENERAL: Alert, awake, communicative. HEENT: Normocephalic, atraumatic. Sclerae pale. Conjunctivae clear. NECK: Supple. CHEST: Decreased breath sounds at bases. CARDIOVASCULAR: Regular rate and rhythm. ABDOMEN: Soft. EXTREMITIES: No edema. LABS AND IMAGING: Reviewed. ASSESSMENT AND PLAN: Patient with history of pulmonary embolism, lung mass, abdominal lymphadenopathy. Patient is lymph node biopsy. At current, we will continue anticoagulation. We will hold anticoagulation tomorrow for Tuesday procedure. We will continue remaining care. Will follow patient closely. Job#: [id number] JIMBO DESIR
[2018-04-15 20:00] VITALS: BP 112/86
[2018-04-15] MEDS: BACLOFEN 10 MG TAB PO SCH (21:57)
[2018-04-15] MEDS: ACETAMINOPHEN 325 MG TAB PO PRN (21:58)
[2018-04-16] VITALS (11 sets, daily range): BP systolic 101–122; BP diastolic 65–87
[2018-04-16] MEDS: HYDROMORPHONE 2MG/ML 2 MG/ML ML IV PRN ×5 (00:19→19:17)
[2018-04-16 04:55] LABS: BASOPHILS % 0.1 % (0.0-1.0); HEMATOCRIT 33.8 % (38.2-49.6); HEMOGLOBIN 11.1 g/dL (14.0-18.0); LYMPHOCYTES # (AUTO) 0.7 (1.0-3.2); LYMPHOCYTES % 5.5 % (18.0-39.1); MEAN CORPUSCULAR HEMOGLOBIN 29.8 pg (28-32); MEAN CORPUSCULAR HGB CONC 32.8 g/dL (31-35); MEAN CORPUSCULAR VOLUME 90.6 fL (81-99); MONOCYTES # (AUTO) 0.5 (0.2-0.8); MONOCYTES % 3.9 % (4.4-11.3); NEUTROPHILS # (AUTO) 10.8 (2.1-6.9); NEUTROPHILS % 89.6 % (38.7-80.0); PLATELET COUNT 135 x10e3/uL (140-360); RED BLOOD COUNT 3.73 x10e6/uL (4.3-5.7); RED CELL DISTRIBUTION WIDTH 13.2 % (11.7-14.4)
[2018-04-16 05:17] LABS: ANION GAP 14.2 mmol/L (8-16); CALCIUM 7.9 mg/dL (8.4-10.2); CREATININE, SERUM 1.58 mg/dL (0.72-1.25); MAGNESIUM 2.4 MG/DL (1.3-2.1); POTASSIUM 5.2 mmol/L (3.5-5.1)
[2018-04-16] MEDS: HYDROCODONE/APAP 10MG-325MG TAB PO PRN ×2 (05:45→15:43)
[2018-04-16] MEDS: FAMOTIDINE 20 MG TAB PO SCH ×2 (07:30→15:42)
--- NOTE | 2018-04-16 08:09 | NUR ---
pt resting in bed, daughter at bedside. no c/o pain or s/s distress. will continue to monitor.
[2018-04-16] MEDS: PHENAZOPYRIDINE HCL 100 MG TAB PO SCH ×3 (10:35→20:57)
[2018-04-16] MEDS: GUAIFENESIN/CODEINE 10 ML CUP PO SCH ×2 (10:35→20:57)
[2018-04-16] MEDS: ENOXAPARIN SOD INJ 60 MG/0.6 ML SYR SC SCH (10:35)
[2018-04-16] MEDS: METHYLPREDNISOLONE SOD SUCC 40 MG/ML VIAL 1ML IV SCH ×2 (10:35→20:56)
[2018-04-16] MEDS: BACLOFEN 10 MG TAB PO SCH ×3 (10:35→20:57)
[2018-04-16] MEDS: CEFTRIAXONE SOD 1 GM/NS 50 ML 50 ML IV SCH (11:14)
[2018-04-16] MEDS ORDERED: FUROSEMIDE INJ 10 MG/ML 4 ML VIAL IV NR (11:15)
[2018-04-16] MEDS: OYST-CAL-D 500MG TABLET PO SCH (15:42)
[2018-04-16] MEDS: AZITHROMYCIN 500MG/NS 250 ML 250 ML IV SCH (15:42)
--- NOTE | 2018-04-16 19:24 | NUR ---
pt alternates between HFNC and ventimask. when pt has bladder spasms he stands up at bedside to help alleviate the pain, causing desat as low as 70%. pt uses ventimask when standing to return sats to 90s%. pt pain levels better maintained with dilaudid. family at bedside. pt to have lung biopsy tomorrow @noon, consent signed, npo @midnight. vs stable.
[2018-04-16] MEDS: OXYBUTYNIN CHLORIDE 5 MG TAB PO SCH (20:56)
--- NOTE | 2018-04-16 21:37 | NUR ---
Patient connected to BIPAP at this time. Will continue to monitor.
[2018-04-16] MEDS: MORPHINE SULFATE INJ 4 MG/ML INJ 1ML IV PRN (22:26)
[2018-04-16] MEDS: BELLADONNA/OPIUM 30 MG SUPP RC PRN (23:45)
[2018-04-17] VITALS (13 sets, daily range): BP systolic 90–127; BP diastolic 63–107
[2018-04-17 05:06] LABS: BASOPHILS % 0.1 % (0.0-1.0); HEMATOCRIT 34.9 % (38.2-49.6); HEMOGLOBIN 11.7 g/dL (14.0-18.0); LYMPHOCYTES # (AUTO) 0.8 (1.0-3.2); LYMPHOCYTES % 4.5 % (18.0-39.1); MEAN CORPUSCULAR HGB CONC 33.5 g/dL (31-35); MEAN CORPUSCULAR VOLUME 89.5 fL (81-99); MONOCYTES % 5.7 % (4.4-11.3); NEUTROPHILS # (AUTO) 15.6 (2.1-6.9); NEUTROPHILS % 88.8 % (38.7-80.0); PLATELET COUNT 150 x10e3/uL (140-360); RED CELL DISTRIBUTION WIDTH 13.4 % (11.7-14.4)
[2018-04-17] MEDS: HYDROMORPHONE 2MG/ML 2 MG/ML ML IV PRN ×3 (05:12→23:30)
[2018-04-17] MEDS: ONDANSETRON HCL INJ 2MG/ML 2ML 2 MG/ML VIAL IV PRN (05:18)
[2018-04-17 05:38] LABS: ANION GAP 15.1 mmol/L (8-16); CALCIUM 8.1 mg/dL (8.4-10.2); CREATININE, SERUM 1.73 mg/dL (0.72-1.25); MAGNESIUM 2.6 MG/DL (1.3-2.1); POTASSIUM 5.1 mmol/L (3.5-5.1)
--- NOTE | 2018-04-17 07:16 | NUR ---
Report given to oncoming MALAIKA Priest,walking round done.
[2018-04-17] MEDS: FAMOTIDINE 20 MG TAB PO SCH ×2 (07:30→18:30)
[2018-04-17] MEDS: OYST-CAL-D 500MG TABLET PO SCH ×2 (09:00→17:00)
[2018-04-17] MEDS: OXYBUTYNIN CHLORIDE 5 MG TAB PO SCH ×3 (09:00→21:08)
[2018-04-17] MEDS: METHYLPREDNISOLONE SOD SUCC 40 MG/ML VIAL 1ML IV SCH ×2 (09:22→21:08)
[2018-04-17] MEDS: GUAIFENESIN/CODEINE 10 ML CUP PO SCH ×2 (10:00→22:09)
[2018-04-17] MEDS ORDERED: DEXMEDETOMIDINE HCL 4 ML ONE (10:18)
[2018-04-17] MEDS ORDERED: LORAZEPAM INJ 2 MG/ML VIAL ONE (10:35)
[2018-04-17] MEDS ORDERED: LORAZEPAM INJ 2 MG/ML VIAL IV ONE (10:45)
[2018-04-17 10:46] LABS: ABG HCO3 26 mmol/L (23-28); ABG PCO2 52 mmHg (41-51); ABG PH 7.31 (7.31-7.41); ABG PO2 210 mmHg (80-105)
--- NOTE | 2018-04-17 10:48 | NUR ---
ASSESSMENT: Emotional Distress Rocket Scientist responded to Rapid Response. Pt's and daughter at bedside. Intervention: Provided supportive listening and calming presence. Provided information on how to reach sales promotion coordinator, if needed. Outcome: Pt's expressed appreciation for support. JAIRON WEN Rocket Scientist Spiritual Care Department O: [phone] Pager: [phone] ([phone] number calling from)
--- NOTE | 2018-04-17 12:03 | NUR ---
ST NOTE: Pt NPO for biopsy. Will check with RN later today for readiness to follow up with diet tolerance. Handoff to MALAIKA Alston
--- NOTE | 2018-04-17 13:16 | Progress Note ---
DATE: April 17, 2018 Patient was seen and examined today. Patient appeared comfortable. He had a rough night. He is scheduled for lung biopsy today. Clinically, he is doing better. PHYSICAL EXAMINATION GENERAL: Alert, awake and communicative. HEENT: Normocephalic and atraumatic. Sclerae pink. Conjunctivae clear. NECK: Supple. CHEST: Decreased at bases. CARDIOVASCULAR: Regular rate and rhythm. ABDOMEN: Soft. EXTREMITIES: No edema. LABS AND IMAGING: Reviewed. ASSESSMENT AND PLAN: The patient with a history of multiple medical conditions. I am currently following for pulmonary embolism and also lung lesion with bony disease. Patient is scheduled for today. Clinical condition is stable at this point. Will continue current care. Anticoagulation after the procedure. Will monitor the patient closely. Job#: [id number] MARY
[2018-04-17] MEDS: BACLOFEN 10 MG TAB PO SCH ×3 (13:35→21:08)
[2018-04-17] MEDS: PHENAZOPYRIDINE HCL 100 MG TAB PO SCH ×3 (13:35→21:08)
--- NOTE | 2018-04-17 16:14 | Progress Note ---
DATE: April 17, 2018 PULMONARY PROGRESS NOTE SUBJECTIVE: The biopsy was postponed today because of his difficulty breathing. Patient required 100% nonrebreather temporarily followed by a BiPAP mask. He is currently on BiPAP at 22/01. He received some sedation and is sleeping at this time. PHYSICAL EXAMINATION VITAL SIGNS: The blood pressure is 110/77 and the saturation is 94%, respiratory rate is 22 on BiPAP, but the heart rate is 110 to 120. HEENT: Shows no facial swelling or erythema. His oropharynx is normal. LYMPHATIC: Shows no submandibular, cervical or supraclavicular adenopathy. CARDIAC: Reveals tachycardia with a normal S1 and S2. There are no murmurs or rubs. LUNGS: Auscultation of the lungs reveals rhonchi and crackles bilaterally. There is no wheezing. ABDOMEN: Is soft, nontender. There is no rebound or guarding. EXTREMITIES: Shows no leg edema or calf tenderness. LABORATORY DATA: The BUN to creatinine ratio is 57 to 1.73 with normal electrolytes. The white blood cell count has increased to 17.6 and the hemoglobin is 11.7. The platelet count is 150. The blood gas is 7.31, 52, and 210. IMPRESSIONS 1. Acute on chronic respiratory failure. 2. Pulmonary mass with probable lymphangitic spread of tumor and bone metastases. 3. Pulmonary emboli. 4. Hematuria. 5. Hypertension. 6. Bladder spasms. PLANS 1. Transfer the patient to ICU and continue monitoring. 2. Continue BiPAP. 3. Decrease pain medication in order to help improve respiratory status. 4. Continue antibiotics. 5. Continue Solu-Medrol. 6. Restart Lovenox. 7. Try and arrange for a CT-guided biopsy as soon as possible. Job#: [id number] TA KARLEE
--- NOTE | 2018-04-17 16:16 | Diagnostic Imaging Report ---
EXAMINATION: CHEST SINGLE (PORTABLE) INDICATION: Respiratory failure. ^Resp Failure ^[id number] ^1602 COMPARISON: April 10, 2018 Findings: See Impression Impression: 1. Slight interval worsening of the previously seen extensive bilateral pulmonary opacities with interstitial and nodular component radiating from the [place]. This may reflect edema, atypical infection or even lymphangitic carcinomatosis. 2. Stable visualized enlarged cardiomediastinal silhouette. 3. Small left effusion versus pleural thickening. Signed by: Dr. Compa Osorio M.D. on 04/17/2018 4:13 PM
[2018-04-17] MEDS: CEFTRIAXONE SOD 1 GM/NS 50 ML 50 ML IV SCH (16:19)
[2018-04-17] MEDS: BELLADONNA/OPIUM 30 MG SUPP RC PRN (16:31)
[2018-04-17] MEDS ORDERED: HYDROMORPHONE 1MG/1ML INJ IV PRN (16:45)
[2018-04-17] MEDS: AZITHROMYCIN 500MG/NS 250 ML 250 ML IV SCH (17:54)
[2018-04-17] MEDS: ENOXAPARIN SOD INJ 60 MG/0.6 ML SYR SC SCH (21:08)
[2018-04-17] MEDS ORDERED: ALBUTEROL/IPRATROPIUM 3 ML NEB NEB SCH (22:00)
[2018-04-18] VITALS (24 sets, daily range): BP systolic 94–135; BP diastolic 65–99
[2018-04-18] MEDS: ALBUTEROL/IPRATROPIUM 3 ML NEB NEB PRN (04:00)
[2018-04-18] MEDS: HYDROMORPHONE 2MG/ML 2 MG/ML ML IV PRN ×3 (04:20→22:50)
[2018-04-18 04:59] LABS: BASOPHILS % 0.1 % (0.0-1.0); HEMATOCRIT 35.6 % (38.2-49.6); HEMOGLOBIN 11.7 g/dL (14.0-18.0); LYMPHOCYTES # (AUTO) 0.8 (1.0-3.2); LYMPHOCYTES % 4.3 % (18.0-39.1); MEAN CORPUSCULAR HEMOGLOBIN 29.9 pg (28-32); MEAN CORPUSCULAR HGB CONC 32.9 g/dL (31-35); MONOCYTES # (AUTO) 0.6 (0.2-0.8); MONOCYTES % 3.4 % (4.4-11.3); NEUTROPHILS # (AUTO) 15.8 (2.1-6.9); NEUTROPHILS % 91.2 % (38.7-80.0); PLATELET COUNT 171 x10e3/uL (140-360); RED BLOOD COUNT 3.91 x10e6/uL (4.3-5.7); RED CELL DISTRIBUTION WIDTH 13.3 % (11.7-14.4)
[2018-04-18 05:35] LABS: ANION GAP 16.1 mmol/L (8-16); CALCIUM 8.4 mg/dL (8.4-10.2); CREATININE, SERUM 1.54 mg/dL (0.72-1.25); POTASSIUM 5.1 mmol/L (3.5-5.1)
[2018-04-18 05:53] LABS: MAGNESIUM 2.5 MG/DL (1.3-2.1); PHOSPHORUS 2.9 MG/DL (2.3-4.7)
[2018-04-18] MEDS: FAMOTIDINE 20 MG TAB PO SCH ×2 (07:52→16:30)
[2018-04-18] MEDS: HYDROCODONE/APAP 10MG-325MG TAB PO PRN (07:52)
[2018-04-18] MEDS: OYST-CAL-D 500MG TABLET PO SCH ×2 (09:00→17:00)
--- NOTE | 2018-04-18 09:50 | Progress Note ---
DATE: April 18, 2018 Patient was seen and examined today. Patient appeared short of breath. Currently in the intensive care unit. His procedure was cancelled yesterday because of his clinical status. Patient is currently on Lovenox. His urine is clear. Clinical condition is improving. PHYSICAL EXAMINATION GENERAL: Alert, awake, on BiPAP. HEENT: Normocephalic and atraumatic. Sclerae are pink. Conjunctivae clear. NECK: Supple. CHEST: Decreased breath sounds at bases. ABDOMEN: Soft. EXTREMITIES: No edema. LABS AND IMAGING: Reviewed. ASSESSMENT AND PLAN: The patient has a history of multiple medical conditions that include pulmonary embolism and also a lung lesion. The patient was scheduled for a lung biopsy, but the procedure was cancelled due to pulmonary status. Clinical condition is improving. The patient is on anticoagulation and tolerating it very well. Labs are stable. At this point, we will continue plan of care. Will monitor the patient closely. Job#: [id number]
[2018-04-18] MEDS: BACLOFEN 10 MG TAB PO SCH ×3 (10:30→20:22)
[2018-04-18] MEDS: ENOXAPARIN SOD INJ 60 MG/0.6 ML SYR SC SCH ×2 (10:30→21:18)
[2018-04-18] MEDS: METHYLPREDNISOLONE SOD SUCC 40 MG/ML VIAL 1ML IV SCH ×2 (10:30→21:18)
[2018-04-18] MEDS: GUAIFENESIN/CODEINE 10 ML CUP PO SCH ×2 (10:30→20:23)
[2018-04-18] MEDS: PHENAZOPYRIDINE HCL 100 MG TAB PO SCH ×3 (10:30→20:22)
[2018-04-18] MEDS: OXYBUTYNIN CHLORIDE 5 MG TAB PO SCH ×3 (10:30→20:22)
--- NOTE | 2018-04-18 10:40 | NUR ---
Pt sleeping soundly and no family present. Will follow as able. [facility] Department O: [phone] Pager: [phone] ([phone] number calling from) Addendum: 04/18/18 at 1255 by Yunior Wright CHAP CORRECTION: ASSESSMENT: Spiritual concern Pt sleeping soundly and pt's at bedside. Pt's states their children have returned home. Pt's states he is anxious concerning illness. Intervention: Provided empathic listening. Facilitated conversation about resources and self-care. Outcome: Will continue to follow as able. [facility] O: [phone]
--- NOTE | 2018-04-18 11:05 | NUR ---
ST NOTE: Spoke with RNMiguel. Requested order for MBS.
[2018-04-18] MEDS: CEFTRIAXONE SOD 1 GM/NS 50 ML 50 ML IV SCH (12:54)
[2018-04-18] MEDS ORDERED: SODIUM CHLORIDE 0.9% 250ML 250 ML ONE (13:10)
--- NOTE | 2018-04-18 13:59 | Progress Note ---
DATE: April 18, 2018 PULMONARY PROGRESS NOTE Patient was transferred to the intensive care unit yesterday because of worsening dyspnea and recurrent suprapubic pain. He had no hematuria overnight. His urinary catheter was removed this morning. He still remains on BiPAP at 14/8 with the FIO2 of 45%. He is afebrile. PHYSICAL EXAMINATION VITALS: The blood pressure is 112/82 and the saturation is 100% on BiPAP at 45% with a pressure of 14/8. HEENT: Shows no facial swelling or erythema. The oropharynx is normal. LYMPHATIC: Shows no submandibular, cervical or suprapubic adenopathy. CARDIAC: Reveals a regular rate and rhythm with a normal S1 and S2. There are no murmurs or rubs. LUNGS: Auscultation of the lungs reveals a few wheezes bilaterally. There are some crackles in both lung eddy. ABDOMEN: Soft and nontender. There is no rebound or guarding. EXTREMITIES: Shows no leg edema or calf tenderness. There is no cyanosis or clubbing. : The urinary catheter has been removed. LABORATORY DATA: White blood cell count is 17.3 and the hemoglobin is 11.7. The platelet count is 171,000. The BUN to creatinine ratio is 54 to 1.54. The sodium is 132 and the other electrolytes are within normal limits. Magnesium is 2.4. The total bili is 1.4. IMPRESSION 1. Jkzft-wb-qndxich respiratory failure. 2. Pulmonary mass with probable lymphangitic spread of tumor and bone metastases. 3. Pulmonary emboli. 4. Hematuria and bladder spasms. 5. Hypertension. PLAN 1. Continue BiPAP and monitor respiratory status required. 2. Increased Solu-Medrol to 60 mg IV q.12 h. 3. Continue anticoagulation for pulmonary emboli. 4. Continue current antibiotics. The patient has been evaluated by infectious disease. 5. Await CT-guided biopsy of the lung. 6. Greater than 35 minutes in direct critical care time during 2 separate visits. 7. Case discussed with the patient, nursing staff and family. Job#: [id number] MARY DESIR
--- NOTE | 2018-04-18 16:00 | NUR ---
Anesthesiologist along with IR MD assessed pt, verbalized best to hold off on biopsy until more stable. will notify Dr. Willoughby.
--- NOTE | 2018-04-18 16:00 | NUR ---
pt o2 respirations stable while on Bipap, when pt off Bipap, he becomes extremely anxious, his RR increases to 30's and O2 sats drop to upper 70's and lower 80s. O2 sats increase slowly once replaced on Bipap. Anesthesiologist notified during assessment/eval and will notify Dr. Willoughby
[2018-04-18] MEDS: AZITHROMYCIN 500MG/NS 250 ML 250 ML IV SCH (18:13)
[2018-04-18] MEDS: FENTANYL 25 MCG/HR PATCH TOP SCH (18:15)
--- NOTE | 2018-04-18 19:00 | NUR ---
Bedside report received from Hallie Preston RN. Pt present and care plan reviewed. Dr. Willoughby present and seeing the pt as well. No signs of distress noted at this time, pt on BIPAP per MD orders.
[2018-04-19] VITALS (23 sets, daily range): BP systolic 82–120; BP diastolic 44–88
[2018-04-19] MEDS: HYDROMORPHONE 2MG/ML 2 MG/ML ML IV PRN (03:09)
[2018-04-19] MEDS: BELLADONNA/OPIUM 30 MG SUPP RC PRN (03:26)
[2018-04-19 04:47] LABS: BASOPHILS % 0.2 % (0.0-1.0); HEMATOCRIT 31.5 % (38.2-49.6); HEMOGLOBIN 10.3 g/dL (14.0-18.0); LYMPHOCYTES # (AUTO) 0.4 (1.0-3.2); LYMPHOCYTES % 4.1 % (18.0-39.1); MEAN CORPUSCULAR HEMOGLOBIN 29.9 pg (28-32); MEAN CORPUSCULAR HGB CONC 32.7 g/dL (31-35); MEAN CORPUSCULAR VOLUME 91.6 fL (81-99); MONOCYTES # (AUTO) 0.3 (0.2-0.8); MONOCYTES % 3.2 % (4.4-11.3); NEUTROPHILS # (AUTO) 9.1 (2.1-6.9); NEUTROPHILS % 91.7 % (38.7-80.0); PLATELET COUNT 148 x10e3/uL (140-360); RED BLOOD COUNT 3.44 x10e6/uL (4.3-5.7); RED CELL DISTRIBUTION WIDTH 13.2 % (11.7-14.4)
[2018-04-19 05:16] LABS: ALBUMIN 2.6 g/dL (3.5-5.0); ALBUMIN/GLOBULIN RATIO 1.1 (0.8-2.0); CALCIUM 8.2 mg/dL (8.4-10.2); CREATININE, SERUM 1.34 mg/dL (0.72-1.25)
--- NOTE | 2018-04-19 07:00 | NUR ---
recvd bedside report. assessment completed and recorded. vss and recorded. pt and verbalize understanding and consent to current poc.
--- NOTE | 2018-04-19 07:41 | Diagnostic Imaging Report ---
PROCEDURE:X-RAY MODIFIED BARIUM SWALLOW COMPARISON:None. INDICATIONS:Possible aspiration, dysphagia DISCUSSION:Fluoroscopic examination was performed in conjunction with speech pathology, during swallowing of a variety of thin and thick liquid consistencies. Fluoroscopy time: 47 seconds Cumulative area dose product: 153.51 cGycm2 Cumulative air kerma: 4.25 mGy CONCLUSION:No penetration or aspiration. Possibility of aspiration is high due to uncoordinated oral and pharyngeal swallowing mechanism with moderate tongue base weakness. Please see the full report from speech pathology for complete details. Gerard Garnett D.O. Dictated by: eGrard Garnett D.O. on 04/19/2018 at 7:52 Electronically approved by: Gerard Garnett D.O. on 04/19/2018 at 7:52
[2018-04-19] MEDS ORDERED: FUROSEMIDE INJ 10 MG/ML 4 ML VIAL IV ONE (08:00)
[2018-04-19 08:01] LABS: LYMPHOCYTES % (MANUAL) 2 % (19-48); MONOCYTES % (MANUAL) 3 % (3.4-9.0); NEUTROPHILS % (MANUAL) 94 % (40-74)
[2018-04-19 08:02] LABS: PLATELET ESTIMATE ADEQUATE; PLATELET MORPHOLOGY COMMENT NORMAL; RBC MORPHOLOGY COMMENT NORMAL
[2018-04-19] MEDS: FAMOTIDINE 20 MG TAB PO SCH ×2 (08:12→13:16)
[2018-04-19] MEDS: METHYLPREDNISOLONE SOD SUCC 40 MG/ML VIAL 1ML IV SCH ×2 (08:12→21:21)
--- NOTE | 2018-04-19 08:29 | NUR ---
dr suresh at bedside intubating pt. after he explained reason for intubation for biopsy, pt and agreed.
[2018-04-19] MEDS ORDERED: PROPOFOL IV EMULSION 10MG/ML 100 ML ONE ×2 (08:56→11:52)
[2018-04-19] MEDS: BACLOFEN 10 MG TAB PO SCH ×3 (09:00→21:21)
[2018-04-19] MEDS: OYST-CAL-D 500MG TABLET PO SCH ×2 (09:00→13:16)
[2018-04-19] MEDS: OXYBUTYNIN CHLORIDE 5 MG TAB PO SCH ×3 (09:00→21:21)
[2018-04-19] MEDS: ENOXAPARIN SOD INJ 60 MG/0.6 ML SYR SC SCH (09:00)
--- NOTE | 2018-04-19 09:18 | NUR ---
ASSESSMENT: Spiritual distress Pt's overwhelmed by 's illness. Pt's states her agreed to be intubated when she asked which "made it easier." Pt's states her was concerned about his job of 26 years. Intervention: Provided calming presence and facilitated illness review. Provided water. Outcome: Will continue to follow. JAIRON WEN Senior Linux Engineer Spiritual Care Department O: [phone] Pager: [phone] ([phone] number calling from)
[2018-04-19] MEDS: GUAIFENESIN/CODEINE 10 ML CUP PO SCH ×2 (10:00→21:21)
--- NOTE | 2018-04-19 10:08 | Consultation ---
DATE OF CONSULTATION: April 09, 2018 CHIEF COMPLAINT AND REASON FOR CONSULTATION: Gross hematuria. HISTORY OF PRESENT ILLNESS: Mr. Roche is a 62-year-old male admitted to the hospital with multiple lung masses and gross hematuria after anticoagulation for DVT. Denied dysuria. PAST MEDICAL HISTORY: As above, hypertension, pulmonary embolus. MEDICATIONS: Please see MAR. ALLERGIES: NKDA. SOCIAL HISTORY: Denied smoking or drinking. FAMILY HISTORY: Denied urologic stones or malignancies. REVIEW OF SYSTEMS: Noncontributory other than problems mentioned above for 12 organ systems. PHYSICAL EXAMINATION: GENERAL: Elderly male, in no acute distress. VITAL SIGNS: Temperature 99.3, pulse 104, respirations 22, blood pressure 93/79. HEENT: Sclerae are anicteric. NECK: Supple. BACK: Without costovertebral angle tenderness bilaterally. ABDOMEN: Soft, nontender, nondistended. No palpable mass. No palpable hernias. No palpable inguinal lymphadenopathy. : Barrera catheter indwelling draining bloody urine. Scrotum without lesions. Testicles nontender, no masses. Epididymides nontender, no masses. EXTREMITIES: Moves all 4. PSYCH: Alert. Mood appropriate. SKIN: Intact. Normal color. PERTINENT LABORATORY DATA: Hemoglobin 12, hematocrit 35, platelet count 125,000. White cell count 13,700. Sodium 133, potassium 4.6, chloride 102, bicarb 21, BUN 29, creatinine 1.88, glucose 94. PT is 16.7, PTT is 36. Urinalysis. greater than 50 reds, greater than 50 whites. IMPRESSION: 1. Gross hematuria. 2. Urinary tract infection. 3. Coagulopathy. 4. Thrombocytopenia. 5. Kidney stone on prior computerized tomography scan. 6. Multiple lung lesions and retroperitoneal lymphadenopathy consistent with metastases. PLAN: Employ a trial of passage of stones. Will irrigate the Barrera catheter p.r.n. Would suggest IVC filter, avoid anticoagulopathy. Patient will need elective cystoscopy. Thank you for allowing me to participate in the care of your patient. Will be happy to follow along with you. Job#: [id number]
--- NOTE | 2018-04-19 10:12 | Diagnostic Imaging Report ---
EXAMINATION: CHEST SINGLE (PORTABLE) INDICATION: ^s/p ett and central line ^[id number] ^0930 COMPARISON: 04/17/2018 FINDINGS: AP view TUBES and LINES: Status post intubation. The tip of endotracheal tube is at the level of the clavicles, approximately 3.8 cm above sheron. Right internal jugular central line in place with tip overlying SVC. LUNGS: Low lung volumes. Pulmonary vascular congestion and mild to moderate interstitial edema. PLEURA: No significant pleural effusion or pneumothorax. HEART AND MEDIASTINUM: The cardiomediastinal silhouette is prominent on this AP view. BONES AND SOFT TISSUES: No acute osseous lesion. Soft tissues are unremarkable. UPPER ABDOMEN: No free air under the diaphragm. IMPRESSION: Status post intubation and right internal jugular central line placement. No visible pneumothorax. Pulmonary vascular congestion and mild to moderate interstitial edema. Signed by: Dr. Allen Ferrari MD on 04/19/2018 10:09 AM
[2018-04-19 10:19] LABS: ABG HCO3 33 mmol/L (23-28); ABG PCO2 56 mmHg (41-51); ABG PH 7.38 (7.31-7.41); ABG PO2 72 mmHg (80-105)
[2018-04-19] MEDS ORDERED: BENZOCAINE 20% SPR 60 ML CAN ONE (11:03)
[2018-04-19] MEDS ORDERED: SUCCINYLCHOLINE CHLORIDE 20 MG/ML 10ML VIAL ONE (11:03)
[2018-04-19] MEDS ORDERED: MIDAZOLAM HCL 2 MG/2 ML VIAL ONE (11:03)
[2018-04-19] MEDS ORDERED: ETOMIDATE 40 MG/ 20ML VIAL IV ONE (11:03)
[2018-04-19] MEDS ORDERED: CEFEPIME HCL 1 GM VIAL IV SCH (12:15)
--- NOTE | 2018-04-19 12:23 | Operative Report ---
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 CONSENT: Consent was obtained from the . MEDICATIONS: Lidocaine for local anesthesia, Versed 2 mg and propofol drip. DETAILS OF PROCEDURE: The patient was placed in a supine position. The SonoSite was used to visualize the right IJ. This site was then prepped sterilely. Lidocaine was used for local anesthesia. The right IJ was then cannulated with a 16-gauge needle under direct visualization with the ultrasound. Guidewire was passed through the needle, and the triple-lumen catheter was placed over the guidewire by the Seldinger technique. All the ports flushed. COMPLICATIONS: None. ESTIMATED BLOOD LOSS: 5 mL. Job#: [id number] MH MTDD
--- NOTE | 2018-04-19 12:34 | NUR ---
ST Note: Discussed case with MALAIKA العراقي. Provided ed re: results of MBS completed 04/18/18. Pt currently intubated in preparation for lung bx. Pt still without any mode of nutrition. Discussed with Dulce Maria that pt's po intake has been poor since admission secondary to multiple days NPO for bx, rapid response X 2, and poor po intake at meals times. Dulce Maria stated she would discuss with Dr. Castillo.
[2018-04-19] MEDS: CEFEPIME 1GM/NS 0.9% 50 ML 50 ML IV SCH ×2 (12:52→23:33)
[2018-04-19] MEDS: VANCOMYCIN 1GM/NS 250 ML 250 ML IV SCH (12:53)
[2018-04-19] MEDS: PROPOFOL IV EMULSION 10MG/ML 100 ML IV SCH ×3 (12:53→15:58)
[2018-04-19] MEDS ORDERED: SODIUM CHLORIDE 0.9% 250ML 250 ML ONE (12:54)
--- NOTE | 2018-04-19 14:02 | NUR ---
WOUND CARE - PUP SCREEN- Marker present for wound to buttock. Myke Score 12 Alternating Pressure Air Mattress Moderate PUP in progress - Bilateral Wrist Restraints in place - propofol sedation in progress. - Family at bedside- states he pulls at lines and tubes. - Restraints removed and reapplied during visit - Barrera in place- kaushik urine noted - Recent Intubation Skin Check Performed- - Patient turned on right side - Diapered with Allevyn Foam Sacrum in place- dressing pulled back - No Pressure Ulcers Identified. - Shear Friction Problem RECOMMENDATION: Myke Score 12 - Increase PUP protocol to Strict Protocol due to Restraints & Propofol use. - Bilateral Heel Protectors While In Bed/ Offload Heels with Pillows. - Allevyn Foam Heel Dressings to Bilateral Heels every other Day.(to reduce shear friction forces) - Strict Turning and Repositioning every 2 Hours - Continue Allevyn Sacrum Foam Dressing Daily. Addendum: 04/19/18 at 1413 by Michael Person RN Amended: Links added.
--- NOTE | 2018-04-19 14:18 | NUR ---
Nutrition Intervention Note RD Recommendation(s) for Physician: -If GI tract is ok to use, rec to initiate TF of Vital HP @ 30mL/hr and advance as tolerated to goal of 65mL/hr to provide 1560kcal, 137g protein, 1304mL water. -Free water flushes of 50mL Q 4hr; additional water per MD discretion. -Check daily labs, weight, and gastric tolerance -If GI is not ok to use, consider PN Plan of Care: RD following, monitoring for tolerance and adequacy, TF rec Nutrition reason for involvement: Follow up RD Assessment (04/19) Pt was discussed during AM rounds. Pt was intubated and on vent. Only propofol running through IV. Spoke with RN Dulce Maria about plan for nutrition; RN will discuss with Dr. Castillo. Will communicate RD rec. (04/14) Chart reviewed. Labs and meds reviewed. 62yo M, who is admitted for hematuria. Patient is currently waiting for CT-guided lymph node biopsy on Tuesday. Anticoagulation is on hold. 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 Pt denied chewing/swallowing problems and nausea/vomiting. Pt reported not liking hospital foods; family has been bringing foods from home. Will continue to monitor and follow. Principal Problems/Diagnoses: 1. Gross hematuria. 2. Urinary tract infection. 3. Coagulopathy. 4. Thrombocytopenia. 5. Kidney stone on prior computerized tomography scan. 6. Multiple lung lesions and retroperitoneal lymphadenopathy consistent with metastases. PMH: Hypertension, pulmonary embolism, lung mass, abdominal lymphadenopathy GI: Abdomen soft, non-tender, round, flatus present Skin: intact Labs: (04/19) BUN 45 H, 1.34 H, Glucose 129 H, Ca 8.2 L Meds: propofol, abx, solu-medrol, fentanyl Ht: 70in Wt: 178.38lb BMI: 25.6kg/m2 IBW: 166lb Malnutrition Evaluation (04/14/2018) The patient does not meet criteria for a specified degree of malnutrition at this time. Will re-evaluate at follow-up as appropriate. Nutrition Prescription (Diet Order): NPO Estimated Nutritional Needs: Calories: 1458 - 1620kcal (18-20kcal/kg/d) Weight used: current BW Protein: 105-162g (1.3-2g/k/d) Weight used: current BW Diet Adequacy: Not meeting calorie needs, Not meeting protein needs Diet Education Needs Assessment: Diet education not indicated. Nutrition Care Level: mod (new TF) Nutrition Diagnosis: Inadequate oral intake related to current medical status as evidenced by pt requiring EN as main source of nutrition. Goal: Patient will meet 75-100% of estimated needs by follow up Progress: N/A Interventions: Composition, Rate, Route Monitoring/Evaluation: Total energy intake, Total protein intake, Formula/Solution, Weight change, Labs, I & O Signed: Becky Souza MS, RD, LD
--- NOTE | 2018-04-19 14:22 | NUR ---
DISCUSSED PT IN ROUNDS. PT REMAINS ON VENT AND PROPOFOL. LUNG BIOPSY STILL PENDING. WILL CONTINUE TO FOLLOW.
[2018-04-19] MEDS: FLUCONAZOLE 200 MG/100 ML 100 ML IV SCH (14:50)
--- NOTE | 2018-04-19 14:59 | Progress Note ---
DATE: April 19, 2018 PULMONARY CRITICAL CARE PROGRESS NOTE The patient has less hematuria. He had more difficulty breathing this morning. Every time he stopped the BiPAP, he desaturated. He was subsequently intubated and placed on assist control ventilation. The patient is now sedated with Diprivan and is on assist control at a rate of 16 with tidal volume of 450. OBJECTIVE VITALS: The blood pressure is 82/60 on Diprivan with a mean arterial blood pressure of 67. Pulse is 82 and saturation is 100% on 50% FIO2. HEENT: Shows no facial swelling or erythema. There is a right IJ line in place. The site looks clean. There is no drainage. CARDIAC: Reveals a regular rate and rhythm with a normal S1 and S2. There are no murmurs or rubs. LUNGS: Auscultation of the lungs reveals rhonchus breath sounds bilaterally. There is no wheezing. ABDOMEN: Soft and nontender. There is no rebound or guarding. EXTREMITIES: Shows no leg edema or calf tenderness. There is no cyanosis or clubbing. SKIN: Shows no rashes. NEUROLOGICAL: Shows the patient to be sedated. RADIOGRAPHIC DATA: Chest x-ray shows an endotracheal tube and a right IJ line in good position. There are bilateral pulmonary infiltrates. LABORATORY DATA: The white blood cell count is 9.8 with a hemoglobin of 10.3 and platelet count of 148,000. The BUN to creatinine ratio is 45 to 1.34. The other electrolytes are within normal limits. Blood gas is 7.38, 56, 72, and 33. IMPRESSION 1. Gwpbr-qs-llzysiq respiratory failure. 2. Pulmonary mass with probably lymphangitic spread of tumor and bone metastases. 3. Pulmonary emboli. 4. Oral thrush. 5. Hematuria. 6. Hypertension. PLAN 1. Continue assist control ventilation. 2. Will try and arrange for a CT-guided biopsy. Lovenox has been held and the patient has the IVC filter in place. 3. Add Diflucan to current antimicrobials regimen. 4. Diprivan as needed for sedation. 5. Prognosis remains poor. 6. Case discussed with Dr. Willoughby, , family, respiratory, and nursing. Greater than 35 minutes of direct critical care time independent of any procedures. Job#: [id number] [facility] MEDICAL CENTERRaleigh
--- NOTE | 2018-04-19 18:56 | NUR ---
BEDSIDE REPORT GIVEN;. NO QUESTIONS AT THIS TIME.
[2018-04-19] MEDS ORDERED: BACLOFEN 10 MG TAB ONE (19:54)
--- NOTE | 2018-04-19 19:54 | Diagnostic Imaging Report ---
ABDOMEN-1VIEW (KUB) Clinical history: NG tube placement Technique: AP view abdomen Comparison: None Findings: NG tube tip overlies the proximal stomach, side port near/just beyond the expected GE junction. IVC filter noted to the right of L1-2. Minimal contrast is seen within the stomach. Grossly nonobstructive bowel gas pattern with minimal gaseous distention of the colon. Impression: NG tube terminates within the expected stomach. Signed by: Dr Zuleyka Manuel MD on 04/19/2018 7:51 PM
[2018-04-19] MEDS ORDERED: OXYBUTYNIN CHLORIDE 5 MG TAB ONE (19:56)
--- NOTE | 2018-04-19 19:58 | Progress Note ---
DATE: April 19, 2018 SUBJECTIVE: Patient seen and examined today. Patient was in intensive care unit. Patient was getting intubation. Patient has persistent worsening respiratory failure. Current hemoglobin is stable. PHYSICAL EXAMINATION: GENERAL: Patient currently getting intubation with sedation. HEENT: Normocephalic, atraumatic. Sclerae pale. Conjunctivae clear. NECK: Supple. CHEST: Decreased breath sounds at bases. CARDIOVASCULAR: Regular rate and rhythm. EXTREMITIES: No edema. LABS AND IMAGING: Reviewed. ASSESSMENT AND PLAN: 1. Patient with history of multiple medical conditions. I am currently following for lung mass and also pulmonary embolism. Patient has persistent worsening respiratory failure requiring intubation. Patient was scheduled to get lung biopsy, but procedure postponed. Continue intensive care management. 2. Pulmonary embolism. Patient was treated with anticoagulation. 3. Patient's current hemoglobin and hematocrit is stable. 4. Will continue remaining care. Will follow patient. Job#: [id number]
[2018-04-20] VITALS (25 sets, daily range): BP systolic 93–118; BP diastolic 47–79
[2018-04-20] MEDS: VANCOMYCIN 1GM/NS 250 ML 250 ML IV SCH ×3 (01:04→23:44)
[2018-04-20] MEDS: PROPOFOL IV EMULSION 10MG/ML 100 ML IV SCH ×5 (03:18→23:05)
[2018-04-20 04:59] LABS: BASOPHILS % 0.1 % (0.0-1.0); HEMOGLOBIN 9.9 g/dL (14.0-18.0); LYMPHOCYTES # (AUTO) 0.4 (1.0-3.2); LYMPHOCYTES % 3.6 % (18.0-39.1); MEAN CORPUSCULAR HEMOGLOBIN 29.6 pg (28-32); MEAN CORPUSCULAR HGB CONC 31.9 g/dL (31-35); MEAN CORPUSCULAR VOLUME 92.5 fL (81-99); MONOCYTES # (AUTO) 0.5 (0.2-0.8); MONOCYTES % 4.5 % (4.4-11.3); NEUTROPHILS # (AUTO) 10.2 (2.1-6.9); NEUTROPHILS % 90.7 % (38.7-80.0); PLATELET COUNT 159 x10e3/uL (140-360); RED BLOOD COUNT 3.35 x10e6/uL (4.3-5.7); RED CELL DISTRIBUTION WIDTH 13.2 % (11.7-14.4)
[2018-04-20 05:19] LABS: ALBUMIN 2.6 g/dL (3.5-5.0); ALBUMIN/GLOBULIN RATIO 1.2 (0.8-2.0); ANION GAP 14.8 mmol/L (8-16); CALCIUM 8.1 mg/dL (8.4-10.2); CREATININE, SERUM 1.74 mg/dL (0.72-1.25); POTASSIUM 4.8 mmol/L (3.5-5.1)
--- NOTE | 2018-04-20 06:38 | Diagnostic Imaging Report ---
EXAMINATION: CHEST SINGLE (PORTABLE) INDICATION: Resp Failure COMPARISON: 04/19/2018 FINDINGS: AP view TUBES and LINES: ET tube tip projects approximately 3.7 cm above the sheron. Right internal jugular central catheter tip overlies the SVC. Interval placement of NG/OG tube, subdiaphragmatic extending inferiorly out of the field of view. LUNGS: Low lung volumes. Pulmonary vascular congestion and moderate interstitial edema. PLEURA: No significant pleural effusion or pneumothorax. HEART AND MEDIASTINUM: The cardiomediastinal silhouette is prominent on this AP view. BONES AND SOFT TISSUES: No acute osseous lesion. Soft tissues are unremarkable. UPPER ABDOMEN: No free air under the diaphragm. IMPRESSION: Lines and tubes as above. Pulmonary vascular congestion and moderate interstitial edema. Signed by: DR. Jordi Hackett MD on 04/20/2018 6:35 AM
--- NOTE | 2018-04-20 07:00 | NUR ---
bedside report recvd. assessment completed and recorded. family at bedside verbalize understanding and consent of current care.
--- NOTE | 2018-04-20 08:30 | NUR ---
dr suresh making rounds, updated on status. called radiology regarding pending biopsy, they states radiology to coordinate with anesthesiology for procedure. family updated on status.
[2018-04-20] MEDS: FAMOTIDINE 20 MG TAB PO SCH ×2 (08:55→16:38)
[2018-04-20] MEDS: METHYLPREDNISOLONE SOD SUCC 40 MG/ML VIAL 1ML IV SCH ×2 (08:55→21:17)
[2018-04-20] MEDS: OXYBUTYNIN CHLORIDE 5 MG TAB PO SCH ×3 (08:55→21:17)
[2018-04-20] MEDS: BACLOFEN 10 MG TAB PO SCH ×3 (08:55→21:17)
[2018-04-20] MEDS: GUAIFENESIN/CODEINE 10 ML CUP PO SCH ×2 (08:55→21:17)
[2018-04-20] MEDS: OYST-CAL-D 500MG TABLET PO SCH ×2 (08:55→16:38)
--- NOTE | 2018-04-20 09:00 | NUR ---
dr michael making rounds, no changes in pt status. dr elkins, making rounds, updated and made no changes on pt status.
--- NOTE | 2018-04-20 09:25 | NUR ---
ASSESSMENT: Spiritual concern Pt sleeping soundly and at bedside. Pt's patiently waiting for biopsy procedure and subsequent results. Pt's states following biopsy there may be a several-day wait for results. Pt's states she occupies her time reading. Intervention: Encouraged self-care including resources available in [place]. Outcome: Pt's expressed appreciation for visit. Will continue to follow as able. JAIRON WEN [facility] Department O: [phone] Pager: [phone] ([phone] number calling from)
--- NOTE | 2018-04-20 09:37 | Progress Note ---
DATE: April 20, 2018 Patient was seen and examined today. Patient has . Currently, condition is stable. . PHYSICAL EXAMINATION . HEENT: Normocephalic and atraumatic. Sclerae clear. NECK: Supple. . CARDIOVASCULAR: Regular rate. ABDOMEN: Soft. EXTREMITIES: No edema. LABS AND IMAGING: Reviewed. ASSESSMENT AND PLAN: The patient is a 62-year-old gentleman . for biopsy. Follow . The patient will benefit with palliative treatment. diagnosis. Follow the patient closely. Job#: [id number] MARY
--- NOTE | 2018-04-20 11:00 | NUR ---
no changes in condition or poc. family at bedside, updated on current care. no questions at this time.
[2018-04-20] MEDS ORDERED: SODIUM CHLORIDE 0.9% 250ML 250 ML ONE (11:45)
[2018-04-20] MEDS: CEFEPIME 1GM/NS 0.9% 50 ML 50 ML IV SCH ×2 (12:46→23:16)
--- NOTE | 2018-04-20 12:47 | NUR ---
sr shebib making rounds, updatedon status. no changes at this time.
--- NOTE | 2018-04-20 13:45 | Progress Note ---
DATE: April 20, 2018 PULMONARY CRITICAL CARE PROGRESS NOTE Patient received additional Lasix with some increased urine output. His FIO2 is decreased to 45%. The lung biopsy was postponed due to scheduling problems between anesthesia and radiology. Will take place tomorrow. Patient was started on fluconazole for thrush and fungal infections. PHYSICAL EXAMINATION VITALS: The blood pressure is 101/71 and the patient is afebrile. The pulse is 72. Saturation is 97%. GENERAL: The patient is on an assist control at a rate of 16 and FIO2 of 45%. The PEEP is set at 5. HEENT: Shows no facial swelling or erythema. The oropharynx is normal. There is a nasogastric feeding tube. There is a right IJ line. The site looks clean. CARDIAC: Reveals a regular rate and rhythm with a normal S1 and S2. There are no murmurs or rubs. LUNGS: Auscultation of lungs reveals rhonchus breath sounds bilaterally. There is no wheezing. ABDOMEN: Soft and nontender. There is no rebound or guarding. EXTREMITIES: Shows no leg edema or calf tenderness. There is no cyanosis or clubbing. SKIN: Shows no rashes. RADIOGRAPHIC DATA: Chest x-ray shows continued infiltrates. IMPRESSION 1. Mvnce-av-jvbsytn respiratory failure. 2. 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 3. Pulmonary emboli. 4. Hematuria. PLAN 1. Await CT-guided lung biopsy. 2. Continue current antibiotics. Patient is awaiting a vanco trough level. 3. Continue assist control mode of ventilation. 4. Lasix as needed with monitoring of electrolytes, BUN and creatinine. 5. Case discussed with nursing staff, family and Brigette Reyes, nurse practitioner working with Dr. Willoughby. 6. Greater than 35 minutes spent in direct critical care time. Job#: [id number] MARY DESIR
[2018-04-20] MEDS: FLUCONAZOLE 200 MG/100 ML 100 ML IV SCH (14:42)
[2018-04-20] MEDS ORDERED: SODIUM CHLORIDE 0.9% 1000ML 1,000 ML IV SCH (15:45)
[2018-04-20 16:07] LABS: ABG HCO3 32 mmol/L (23-28); ABG PCO2 46 mmHg (41-51); ABG PH 7.45 (7.31-7.41); ABG PO2 84 mmHg (80-105)
--- NOTE | 2018-04-20 18:58 | NUR ---
report given to overnight caregiver rn. no questions at this time.
[2018-04-21] VITALS (24 sets, daily range): BP systolic 96–120; BP diastolic 48–82
[2018-04-21 04:41] LABS: BASOPHILS % 0.1 % (0.0-1.0); HEMATOCRIT 29.9 % (38.2-49.6); HEMOGLOBIN 9.9 g/dL (14.0-18.0); LYMPHOCYTES # (AUTO) 0.3 (1.0-3.2); LYMPHOCYTES % 2.3 % (18.0-39.1); MEAN CORPUSCULAR HEMOGLOBIN 30.2 pg (28-32); MEAN CORPUSCULAR HGB CONC 33.1 g/dL (31-35); MEAN CORPUSCULAR VOLUME 91.2 fL (81-99); MONOCYTES # (AUTO) 0.6 (0.2-0.8); MONOCYTES % 3.9 % (4.4-11.3); NEUTROPHILS # (AUTO) 13.1 (2.1-6.9); NEUTROPHILS % 92.7 % (38.7-80.0); PLATELET COUNT 149 x10e3/uL (140-360); RED BLOOD COUNT 3.28 x10e6/uL (4.3-5.7); RED CELL DISTRIBUTION WIDTH 13.3 % (11.7-14.4)
[2018-04-21 05:02] LABS: ANION GAP 17.2 mmol/L (8-16); CALCIUM 7.8 mg/dL (8.4-10.2); CREATININE, SERUM 1.8 mg/dL (0.72-1.25); MAGNESIUM 2.6 MG/DL (1.3-2.1); POTASSIUM 5.2 mmol/L (3.5-5.1)
--- NOTE | 2018-04-21 07:00 | NUR ---
bedside report recvd. assessment completed and recorded. tf stopped for procedure today. at bedside. she verbalizes understanding and consent of current poc.
[2018-04-21] MEDS: FAMOTIDINE 20 MG TAB PO SCH (07:30)
--- NOTE | 2018-04-21 07:45 | NUR ---
dr blood making rounds, no new orders.
[2018-04-21] MEDS: OXYBUTYNIN CHLORIDE 5 MG TAB PO SCH ×3 (08:04→21:00)
[2018-04-21] MEDS: GUAIFENESIN/CODEINE 10 ML CUP PO SCH ×2 (08:05→21:00)
[2018-04-21] MEDS: BACLOFEN 10 MG TAB PO SCH ×2 (08:05→15:31)
[2018-04-21] MEDS: OYST-CAL-D 500MG TABLET PO SCH ×2 (08:05→16:59)
[2018-04-21] MEDS: METHYLPREDNISOLONE SOD SUCC 40 MG/ML VIAL 1ML IV SCH ×2 (08:08→21:00)
[2018-04-21] MEDS: PROPOFOL IV EMULSION 10MG/ML 100 ML IV SCH ×3 (08:08→21:23)
--- NOTE | 2018-04-21 08:20 | NUR ---
dr gonzalez and dr alicea making rounds updated on status. no changes made.
--- NOTE | 2018-04-21 08:41 | NUR ---
ST Note: Pt remains intubated. NGT in place. Pt will require objective re-assessment of swallow safety after extubation.
--- NOTE | 2018-04-21 08:50 | NUR ---
dr lord making rounds, he updated on current status. no changes in care.
[2018-04-21] MEDS: FAMOTIDINE 20 MG/2 ML VIAL IV SCH ×2 (08:54→16:59)
--- NOTE | 2018-04-21 08:57 | Progress Note ---
DATE: April 21, 2018 Patient was seen and examined today. Patient is still intubated. Patient has a scheduled procedure around 1 o'clock today. Patient's platelet count is 140,000 with hemoglobin 9.9. Clinical condition is stable. PHYSICAL EXAMINATION GENERAL: Intubated and sedated. HEENT: Normocephalic and atraumatic. Sclerae pink. Conjunctivae clear. NECK: Supple. CHEST: Decreased breath sounds at the bases. CARDIOVASCULAR: Regular rate and rhythm. EXTREMITIES: No edema. LABS AND IMAGING: Reviewed. ASSESSMENT AND PLAN: The patient with lung mass with bone lesions, pulmonary embolism, pneumonia, and persistent respiratory failure. Scheduled for lung biopsy. Prognosis limited. Further recommendations and treatment after pathology. Will monitor the patient closely. Job#: [id number] MARY
--- NOTE | 2018-04-21 11:00 | NUR ---
chriss, inpatient care manager rn making rounds, updated on status, orders being completed.
[2018-04-21] MEDS ORDERED: FUROSEMIDE INJ 10 MG/ML 4 ML VIAL IV ONE (12:00)
[2018-04-21] MEDS ORDERED: FUROSEMIDE INJ 10 MG/ML 2 ML VIAL IV ONE (12:00)
[2018-04-21] MEDS ORDERED: GELATIN SPONGE 12-7MM ONE (12:41)
--- NOTE | 2018-04-21 12:42 | NUR ---
left icu for procedure with anesthesiology and staff.
--- NOTE | 2018-04-21 13:19 | NUR ---
DC PLANNING: DISCUSSED PT IN ROUNDS. PT REMAINS ON VENT, CONDOM CATHETER, PROPOFOL GTT, SOLUMEDROL, VANCOMYCIN, FENTANYL. PT SCHEDULED FOR LUNG BIOPSY TODAY. WILL CONTINUE TO FOLLOW.
--- NOTE | 2018-04-21 14:14 | NUR ---
returned from procedure, vss, some blood in ett suctioned per rt.
[2018-04-21] MEDS ORDERED: FENTANYL CITRATE/PF 100MCG/2 ML INJ ONE (14:16)
[2018-04-21] MEDS ORDERED: MIDAZOLAM HCL 2 MG/2 ML VIAL ONE (14:16)
[2018-04-21] MEDS: CEFEPIME 1GM/NS 0.9% 50 ML 50 ML IV SCH (14:29)
[2018-04-21] MEDS: VANCOMYCIN 1GM/NS 250 ML 250 ML IV SCH (15:23)
--- NOTE | 2018-04-21 16:30 | NUR ---
dr suresh making rounds, pt stable no changes.
--- NOTE | 2018-04-21 16:56 | Diagnostic Imaging Report ---
EXAMINATION: CHEST SINGLE (PORTABLE) INDICATION: Status post right lung biopsy. COMPARISON: Chest radiograph 04/20/2018, CT Lung Biopsy 04/21/2018. FINDINGS: TUBES and LINES: ET tube tip projects approximately 5.1 cm above the sheron. Right internal jugular central catheter tip overlies the SVC. Interval placement of enteric tube, coursing into the stomach, the tip is not seen. LUNGS: Low lung volumes. Moderate perihilar and interstitial opacities persist. Patchy opacity is present in the right midlung zone. PLEURA: No significant pleural effusion or pneumothorax. HEART AND MEDIASTINUM: The cardiomediastinal silhouette is unchanged. BONES AND SOFT TISSUES: No acute osseous lesion. Soft tissues are unremarkable. UPPER ABDOMEN: No free air under the diaphragm. IMPRESSION: Status post right lung biopsy with no evidence of pneumothorax. Patchy opacity in the right midlung zone could represent known perilesional hemorrhage status post right lung nodule biopsy. Central vascular congestion with moderate pulmonary interstitial edema. Signed by: Dr. Nieves Boykin MD on 04/21/2018 4:53 PM
[2018-04-21] MEDS: FLUCONAZOLE 200 MG/100 ML 100 ML IV SCH (16:59)
[2018-04-21] MEDS ORDERED: ROCURONIUM BROMIDE 10 MG/ML 5ML VIAL ONE (17:32)
[2018-04-21] MEDS ORDERED: PROPOFOL IV EMULSION 10 MG/ML 20 ML VIAL ONE (17:32)
--- NOTE | 2018-04-21 19:00 | NUR ---
Bedside report received from Dulce Maria Kat RN. Care plan reviewed, pts at the bedside. No signs of distress noted at this time.
--- NOTE | 2018-04-21 19:00 | Diagnostic Imaging Report ---
Examination: Single AP view of the chest. COMPARISON: 04/21/2018 INDICATION: Post biopsy DISCUSSION: Lines/tubes: Stable endotracheal tube, enteric tube, and right IJ catheter. Lungs: Stable pulmonary edema. Low lung volumes. Prior lung mass is obscured. Pleura: No pleural effusion or pneumothorax. Heart and mediastinum: Prominent heart size. Bones and soft tissues: No acute bony abnormalities. IMPRESSION: Low lung volumes with stable pulmonary edema. No pneumothorax Signed by: Dr. Obinna Valladares M.D. on 04/21/2018 6:57 PM
[2018-04-21] MEDS: FENTANYL 25 MCG/HR PATCH TOP SCH (19:13)
[2018-04-22] VITALS (23 sets, daily range): BP systolic 85–131; BP diastolic 61–95
[2018-04-22] MEDS: CEFEPIME 1GM/NS 0.9% 50 ML 50 ML IV SCH ×2 (00:15→12:08)
[2018-04-22] MEDS: VANCOMYCIN 1GM/NS 250 ML 250 ML IV SCH ×2 (00:15→12:08)
[2018-04-22] MEDS: PROPOFOL IV EMULSION 10MG/ML 100 ML IV SCH ×4 (02:49→19:15)
[2018-04-22 04:53] LABS: BASOPHILS % 0.1 % (0.0-1.0); HEMATOCRIT 29.5 % (38.2-49.6); HEMOGLOBIN 9.8 g/dL (14.0-18.0); LYMPHOCYTES # (AUTO) 0.5 (1.0-3.2); LYMPHOCYTES % 2.9 % (18.0-39.1); MEAN CORPUSCULAR HEMOGLOBIN 29.9 pg (28-32); MEAN CORPUSCULAR HGB CONC 33.2 g/dL (31-35); MEAN CORPUSCULAR VOLUME 89.9 fL (81-99); MONOCYTES % 5.5 % (4.4-11.3); NEUTROPHILS % 89.9 % (38.7-80.0); PLATELET COUNT 128 x10e3/uL (140-360); RED BLOOD COUNT 3.28 x10e6/uL (4.3-5.7); RED CELL DISTRIBUTION WIDTH 13.4 % (11.7-14.4)
[2018-04-22 05:20] LABS: ANION GAP 14.4 mmol/L (8-16); CALCIUM 7.8 mg/dL (8.4-10.2); CREATININE, SERUM 1.78 mg/dL (0.72-1.25); MAGNESIUM 2.6 MG/DL (1.3-2.1); POTASSIUM 5.4 mmol/L (3.5-5.1)
[2018-04-22 05:24] LABS: ALBUMIN 2.3 g/dL (3.5-5.0); ANION GAP 14.3 mmol/L (8-16); CALCIUM 7.7 mg/dL (8.4-10.2); CREATININE, SERUM 1.77 mg/dL (0.72-1.25); POTASSIUM 5.3 mmol/L (3.5-5.1)
--- NOTE | 2018-04-22 06:38 | Diagnostic Imaging Report ---
Examination: Single AP view of the chest. COMPARISON: 04/21/2018 INDICATION: Intubated, respiratory failure DISCUSSION: Lines/tubes: Stable endotracheal tube, enteric tube, and right IJ catheter. Lungs: Mildly decreased pulmonary edema. Low lung volumes. Prior right lower lung mass is again noted. Pleura: No pleural effusion or pneumothorax. Heart and mediastinum: Prominent heart size. Bones and soft tissues: No acute bony abnormalities. Degenerative changes in the thoracic spine. IMPRESSION: Mildly improved pulmonary edema. Signed by: DR. Jordi Hackett MD on 04/22/2018 6:35 AM
--- NOTE | 2018-04-22 07:00 | NUR ---
Bedside report given to Debbie Irizarry RN. Care plan reviewed, pts present at the bedside. No signs of distress noted at this time.
--- NOTE | 2018-04-22 07:43 | Diagnostic Imaging Report ---
EXAM: Abdomen 1 Views INDICATION: ^OGT placement ^[id number] ^[id number] ^Y COMPARISON: None FINDINGS: TUBES AND LINES: NG/O G-tube with tip overlying the gastric body and proximal sidehole overlying the gastroesophageal junction. Recommend advancement. IVC filter with tip to the right of the superior endplate of L1 vertebral body. Moderate of stool in the colon. No dilated loops of small bowel. No renal calculi. No abnormal soft tissue masses. Mild degenerative changes in the lumbar spine and pelvis. IMPRESSION: Infradiaphragmatically NG/OG tube with proximal sidehole near the gastroesophageal junction. Recommend advancement. Signed by: Dr. Kira Stack M.D. on 04/22/2018 7:40 AM
--- NOTE | 2018-04-22 08:03 | Progress Note ---
DATE: April 22, 2018 SUBJECTIVE: Patient was seen and examined today. Patient is intubated. He had a biopsy done yesterday. Current hemoglobin 9.8. The patient has no evidence of any bleeding. PHYSICAL EXAMINATION GENERAL: Intubated and sedated. HEENT: Normocephalic and atraumatic. Sclerae pink. Conjunctivae clear. NECK: Supple. CHEST: Decreased breath sounds at the bases. ABDOMEN: Soft. EXTREMITIES: No edema. LABS: Reviewed. IMAGING: Reviewed. ASSESSMENT AND PLAN: The patient with history of lung mass, lung lesion, pulmonary embolism, pneumonia, and persistent respiratory failure, status post lung biopsy. Pathology is pending. Clinical condition is stable. Hemoglobin is stable. Recommendation is to continue current care. We will monitor the patient closely. Job#: [id number] CHASE DESIR
[2018-04-22 09:39] LABS: ABG HCO3 29 mmol/L (23-28); ABG PCO2 42 mmHg (41-51); ABG PH 7.45 (7.31-7.41); ABG PO2 127 mmHg (80-105)
--- NOTE | 2018-04-22 10:27 | NUR ---
PATIENT VOIDED 160 CCS. POST VOID RESIDUAL IS 332. THEN PATIENT VOIDED AGAIN, NOW THERE IS 325 CCS IN [place]. NO URINE NOTED ON BLADDER SCAN AT THIS TIME.
--- NOTE | 2018-04-22 10:55 | NUR ---
No order noted in [facility] for pathology. Called Samantha in Lab, she states after doing an inquiry, it shows the specimen (r lung tissue and fluid) is in process.
[2018-04-22] MEDS ORDERED: FUROSEMIDE INJ 10 MG/ML 4 ML VIAL IV ONE (11:00)
[2018-04-22] MEDS: METHYLPREDNISOLONE SOD SUCC 40 MG/ML VIAL 1ML IV SCH ×2 (11:01→22:01)
[2018-04-22] MEDS: FAMOTIDINE 20 MG/2 ML VIAL IV SCH ×2 (11:01→17:09)
--- NOTE | 2018-04-22 11:14 | NUR ---
paged dr alicea to see about anticoagulation, he states start heparin drip for pe with no bolus
--- NOTE | 2018-04-22 11:19 | NUR ---
ogt advanced based on am kub, air test positive
[2018-04-22] MEDS: OYST-CAL-D 500MG TABLET PO SCH ×2 (11:20→17:09)
[2018-04-22] MEDS: OXYBUTYNIN CHLORIDE 5 MG TAB PO SCH ×3 (11:20→20:42)
[2018-04-22] MEDS: GUAIFENESIN/CODEINE 10 ML CUP PO SCH (11:20)
[2018-04-22] MEDS ORDERED: [UNRECOGNIZED DRUG - OTHER] IV SCH ×4 (13:00)
[2018-04-22] MEDS ORDERED: HEPARIN IV SCH ×4 (13:00)
--- NOTE | 2018-04-22 14:32 | Progress Note ---
DATE: April 22, 2018 PULMONARY PROGRESS NOTE SUBJECTIVE: Patient was placed on a spontaneous breathing trial today. He was on pressure support of 10 and CPAP of 5, but became slightly tachypneic with respiratory rate in the low 30s. He was switched back to SIMV. Patient was started on heparin today because of his history of pulmonary thromboemboli. PHYSICAL EXAMINATION VITAL SIGNS: The blood pressure is 102/68 and the saturation is 94%. The pulse is 85. HEENT: Shows no facial swelling or erythema. The patient has an oroendotracheal tube in place. There is a right IJ line in place. The site looks clean. There are enteral feedings. CARDIAC: Reveals a regular rate and rhythm with a normal S1 and S2. There are no murmurs or rubs. LUNGS: Auscultation of the lungs shows rhonchus breath sounds bilaterally. There is no wheezing. ABDOMEN: Soft, nontender. There is no rebound or guarding. EXTREMITIES: Shows no leg edema or calf tenderness. There is no cyanosis or clubbing. SKIN: Shows no rashes. NEUROLOGICAL: Shows no focal abnormalities. RADIOGRAPHIC DATA: Chest x-ray shows mildly improved pulmonary edema. LABORATORY DATA: White blood cell count is 17.8 and hemoglobin is 9.8. The platelet count is 128. The BUN to creatinine ratio is 68 to 1.77, and the other electrolytes are within normal limits. IMPRESSION 1. Tgpjy-ww-trkbqkn respiratory failure. 2. Pulmonary emboli. 3. Bronchogenic carcinoma with probable lymphangitic spread of tumor and bony metastases. 4. Acute kidney injury. 5. Hematuria. PLAN 1. Patient received additional Lasix today. 2. Continue heparin drip. 3. Repeat spontaneous breathing trial tomorrow. 4. Continue enteral feedings. 5. Case discussed with family, nursing staff, and respiratory. Greater than 35 minutes spent in direct critical care time. Job#: [id number] LPA MTDD
--- NOTE | 2018-04-22 17:00 | NUR ---
noticed hematura coming into urine collection container from condom cath. paused heparin drip. notified chriss ramires, she states galindo hansen md Addendum: 04/22/18 at 1805 by Debbie June RN spoke to dr. alicea. he states stop heparin drip
--- NOTE | 2018-04-22 18:13 | NUR ---
spoke to dr. gore. he wants a 24f [address] catheter *10 cc* balloon with NS CBI. he states the priority is for the patient to anticoagulated, so start the heparin back when the urine is clear. i told him that nixon wanted the heparin stopped, so could he reach out to him to discuss that, but he states when urine is clear call him (nixon) and tell him that sofía wants the anticoagulation going.
--- NOTE | 2018-04-22 19:00 | NUR ---
Bedside report received from Debbie Irizarry RN. Care plan reviewed, pts present at the bedside. Pt coughing up (through ETT) copious amounts of yellow/pink/sun tinged frothy secretions. Ett suctioned and tube feeding stopped. Per report from Debbie Irizarry RN pending MD orders are as follows: * Insert [address] with continuous NS irrigation. * Hold tonight's dose of Vancomycin * Obtain random vancomycin serum level in the AM (0500) * Dr. Bruno to round in AM to monitor urine * Notify Dr. Warren in the AM when urine is clear and see when heparin can be restarted. If it can be restarted then notify Dr. Bruno.
--- NOTE | 2018-04-22 19:30 | NUR ---
3 way hoffman catheter inserted, stat-lock coy placed, irrigation started.
--- NOTE | 2018-04-22 20:00 | NUR ---
OGT found coiled in the pts mouth. Tube suctioned and removed at this time. Pt RR 38. Will attempt reinsertion once RR decrease.
--- NOTE | 2018-04-22 20:30 | NUR ---
CHG bath completed, pt hair washed, linens and gown changed. Shey Méndez RN charge nurse assisted at this time.
--- NOTE | 2018-04-22 21:00 | NUR ---
Dr. Anabell Castillo present on the unit, notified him that after the heparin was started today the pt developed dark red hematuria with small clots. Informed him that Dr. Bruno was notified and ordered to stop the heparin, insert 3 way hoffman with continuous irrigation, and not the restart heparin until after he sees him in the morning. Also notified that the OGT was coiled in the pts mouth and was suctioned and removed with plans to reinsert one once the pts RR decrease. instructed me to hold tube feedings and sedation at 0500 in the morning for rapid weaning trials.
[2018-04-23] VITALS (23 sets, daily range): BP systolic 91–112; BP diastolic 64–81
[2018-04-23] MEDS: CEFEPIME 1GM/NS 0.9% 50 ML 50 ML IV SCH (00:06)
[2018-04-23] MEDS: PROPOFOL IV EMULSION 10MG/ML 100 ML IV SCH ×5 (00:07→21:18)
[2018-04-23 04:36] LABS: BASOPHILS # (AUTO) 0.1 (0.0-0.1); BASOPHILS % 0.2 % (0.0-1.0); HEMATOCRIT 33.2 % (38.2-49.6); HEMOGLOBIN 10.9 g/dL (14.0-18.0); LYMPHOCYTES # (AUTO) 0.6 (1.0-3.2); LYMPHOCYTES % 2.4 % (18.0-39.1); MEAN CORPUSCULAR HEMOGLOBIN 30.2 pg (28-32); MEAN CORPUSCULAR HGB CONC 32.8 g/dL (31-35); MONOCYTES # (AUTO) 1.5 (0.2-0.8); MONOCYTES % 5.8 % (4.4-11.3); NEUTROPHILS # (AUTO) 23.2 (2.1-6.9); NEUTROPHILS % 90.8 % (38.7-80.0); PLATELET COUNT 116 x10e3/uL (140-360); RED BLOOD COUNT 3.61 x10e6/uL (4.3-5.7); RED CELL DISTRIBUTION WIDTH 13.7 % (11.7-14.4)
[2018-04-23 05:22] LABS: ALBUMIN 2.5 g/dL (3.5-5.0); ANION GAP 16.9 mmol/L (8-16); CALCIUM 8.1 mg/dL (8.4-10.2); CREATININE, SERUM 1.92 mg/dL (0.72-1.25); POTASSIUM 4.9 mmol/L (3.5-5.1)
--- NOTE | 2018-04-23 06:23 | Diagnostic Imaging Report ---
Examination: Single AP view of the chest. COMPARISON: 04/22/2018 INDICATION: Intubated, respiratory failure DISCUSSION: Lines/tubes: Stable endotracheal tube and right IJ catheter. Enteric tube removed. Lungs: Worsening pulmonary edema. Low lung volumes. Prior right lower lung mass is again noted. Pleura: No pleural effusion or pneumothorax. Heart and mediastinum: Prominent heart size. Bones and soft tissues: No acute bony abnormalities. Degenerative changes in the thoracic spine. IMPRESSION: Worsening pulmonary edema. Signed by: DR. Jordi Hackett MD on 04/23/2018 6:20 AM
--- NOTE | 2018-04-23 07:00 | NUR ---
Bedside report given to Debbie Irizarry RN Care plan reviewed, pts at the bedside.
[2018-04-23] MEDS: OXYBUTYNIN CHLORIDE 5 MG TAB PO SCH ×3 (09:00→21:00)
[2018-04-23] MEDS: OYST-CAL-D 500MG TABLET PO SCH ×2 (09:00→18:17)
[2018-04-23] MEDS: METHYLPREDNISOLONE SOD SUCC 40 MG/ML VIAL 1ML IV SCH ×2 (09:17→21:17)
[2018-04-23] MEDS: FAMOTIDINE 20 MG/2 ML VIAL IV SCH ×2 (09:17→18:17)
--- NOTE | 2018-04-23 09:31 | Progress Note ---
DATE: April 23, 2018 PULMONARY/CRITICAL CARE PROGRESS NOTE SUBJECTIVE: Patient was placed on a spontaneous breathing trial this morning, but became tachypneic to 35 and had to be switched back to assist control. His secretions are sun colored and more purulent this morning. He also has an increased white blood cell count to 25. The patient had some hematuria last night and his heparin was stopped. He was started back on bladder irrigation, but his urine is now clear. PHYSICAL EXAMINATION VITAL SIGNS: The blood pressure is 92/64 and the pulse is 98. The temperature is 99.5. The patient is on assist control mode of ventilation. His saturation is 91% on 50% FiO2. HEENT: Shows no facial swelling or erythema. There is an oroendotracheal tube in place. The feeding tube was removed last night because it was clogged. CARDIAC: Regular rate and rhythm with a normal S1 and S2. LUNGS: Auscultation of the lungs reveals rhonchorous breath sounds bilaterally. There is no wheezing. ABDOMEN: Soft and nontender. There is no rebound or guarding. EXTREMITIES: There is 1 to 2+ leg edema. NEUROLOGICAL: Shows the patient to be sedated. LABORATORY DATA: White blood cell count is 25.5 and hemoglobin is 10.9. Platelet count is 116. The BUN to creatinine ratio is increased to 68/1.92 and the sodium is 146. RADIOGRAPHIC DATA: Shows continued bilateral pulmonary infiltrates. IMPRESSION 1. [id number]-dk-nkdfbzr respiratory failure. 2. Ventilator-associated pneumonia with increased white blood cell count. 3. Pulmonary emboli. 4. Hematuria. 5. Acute kidney injury. 6. Bronchogenic carcinoma with probable lymphangitic spread of tumor and bony metastases. PLAN 1. Case discussed with ID. Switch to meropenem. 2. Add fluconazole because of thrush and yeast in the sputum. 3. Continue heparin drip. 4. Restart enteral feedings. 5. Monitor renal function. 6. Await biopsy results. 7. Case discussed with . She understands that the prognosis is poor. Patient will remain with full support until the biopsy results are back. 8. Case discussed with respiratory nursing day shift/nursing belt repairer, and Dr. Back. Greater than 35 minutes in direct critical care time. Job#: [id number] [facility]
[2018-04-23] MEDS ORDERED: [UNRECOGNIZED DRUG - OTHER] IV SCH (11:00)
[2018-04-23] MEDS ORDERED: HEPARIN IV SCH (11:00)
[2018-04-23] MEDS ORDERED: SODIUM CHLORIDE 0.9% 250ML 250 ML ONE (11:10)
[2018-04-23] MEDS: FLUCONAZOLE 200 MG/100 ML 100 ML IV SCH (11:11)
--- NOTE | 2018-04-23 13:16 | Diagnostic Imaging Report ---
EXAM: Abdomen 1 Views INDICATION: Nasogastric tube placement. COMPARISON: KUB 04/22/2018. FINDINGS: Exam somewhat limited by soft tissue attenuation and motion. TUBES AND LINES: Interval advancement of enteric tube, the tip terminates in the gastric body, the side-port is below the GE junction. IVC filter with tip to the right of the superior endplate of L1 vertebral body. No specific evidence of bowel obstruction. Moderate amount of stool in the colon. Mild degenerative changes in the lumbar spine and pelvis. IMPRESSION: Interval advancement of enteric tube terminating the stomach, with the side port below the GE junction. Signed by: Dr. Nieves Boykin MD on 04/23/2018 1:13 PM
[2018-04-23] MEDS: MEROPENEM 1GM 100 ML IV SCH ×2 (13:30→23:06)
--- NOTE | 2018-04-23 18:51 | NUR ---
patient had a nose bleed and copious pink secretions after turning and suctioning. notified dr. suresh, he states stop heparin and orders labs for am
--- NOTE | 2018-04-23 19:00 | NUR ---
Bedside report received from Debbie Irizarry RN. Care plan reviewed, pts at the bedside. RR 26, SPO2% 94%, no signs of distress noted at this time. Propofol infusing per MD orders.
--- NOTE | 2018-04-23 19:30 | NUR ---
Dr. Anabell Castillo return called. Notified him that AM nursing staff believed the pts bleeding was related to insertion of NGT. No new orders received.
[2018-04-24] VITALS (22 sets, daily range): BP systolic 87–102; BP diastolic 56–74
[2018-04-24] MEDS: PROPOFOL IV EMULSION 10MG/ML 100 ML IV SCH ×4 (03:02→23:30)
[2018-04-24 05:04] LABS: BASOPHILS % 0.2 % (0.0-1.0); HEMOGLOBIN 10.4 g/dL (14.0-18.0); LYMPHOCYTES # (AUTO) 0.5 (1.0-3.2); LYMPHOCYTES % 2.7 % (18.0-39.1); MEAN CORPUSCULAR HEMOGLOBIN 29.7 pg (28-32); MEAN CORPUSCULAR HGB CONC 32.5 g/dL (31-35); MEAN CORPUSCULAR VOLUME 91.4 fL (81-99); MONOCYTES # (AUTO) 0.9 (0.2-0.8); MONOCYTES % 4.5 % (4.4-11.3); NEUTROPHILS # (AUTO) 18.3 (2.1-6.9); NEUTROPHILS % 91.7 % (38.7-80.0); PLATELET COUNT 104 x10e3/uL (140-360); RED CELL DISTRIBUTION WIDTH 14.1 % (11.7-14.4)
[2018-04-24 05:28] LABS: ANION GAP 15.1 mmol/L (8-16); CALCIUM 7.6 mg/dL (8.4-10.2); CREATININE, SERUM 2.01 mg/dL (0.72-1.25); MAGNESIUM 2.5 MG/DL (1.3-2.1); POTASSIUM 5.1 mmol/L (3.5-5.1)
--- NOTE | 2018-04-24 06:39 | Diagnostic Imaging Report ---
Examination: Single AP view of the chest. COMPARISON: 04/23/2018 INDICATION: Intubated, respiratory failure DISCUSSION: Lines/tubes: ET tube tip near the thoracic inlet. Recommend repositioning. NG/OG tube, new. Side hole projects over the gastric body, tip extends inferiorly out of the field of view. Stable right IJ catheter. Lungs: Mildly decreased pulmonary edema. Moderate lung volumes. Prior right lower lung mass is again noted. Pleura: Small left pleural effusion. No pneumothorax. Heart and mediastinum: Prominent heart size. Bones and soft tissues: No acute bony abnormalities. Degenerative changes in the thoracic spine. Partially visualized IVC filter. IMPRESSION: ET tube tip near the thoracic inlet. Recommend repositioning. Mildly decreased pulmonary edema. Signed by: DR. Jordi Hackett MD on 04/24/2018 6:36 AM
[2018-04-24 08:30] LABS: INR 1.15; PROTHROMBIN TIME 15.7 seconds (11.9-14.5)
[2018-04-24] MEDS ORDERED: HYDROXYZINE HCL 10 MG TAB PO PRN (08:30)
[2018-04-24 08:31] LABS: PARTIAL THROMBOPLASTIN TIME 27.1 seconds (23.8-35.5)
--- NOTE | 2018-04-24 09:08 | Progress Note ---
DATE: April 24, 2018 SUBJECTIVE: Patient was seen and examined today. Patient appears the same. Still intubated. The patient was started on anticoagulation, but was discontinued because of the bleeding. The patient is being followed by the urologist. PHYSICAL EXAMINATION GENERAL: Intubated and sedated. HEENT: Normocephalic and atraumatic. Sclerae are pink. Conjunctivae clear. NECK: Supple. CHEST: Decreased breath sounds at the bases. CARDIOVASCULAR: Regular rate and rhythm. EXTREMITIES: No edema. LABS: Reviewed. IMAGING: Reviewed. ASSESSMENT AND PLAN: The patient with history of pneumonia, lung mass, pulmonary embolism, chronic obstructive pulmonary disease. Patient is currently intubated and sedated. The patient already had a lung biopsy. Pathology report is pending. RECOMMENDATIONS: Follow the pathology report. Monitor the patient's condition closely. Patient will need higher level of care to treat his cancer maybe as an inpatient. Further recommendations as per pathology. Will follow the patient. Job#: [id number] DARRICK DESIR
--- NOTE | 2018-04-24 09:23 | NUR ---
notified dr. chow of [facility]
[2018-04-24] MEDS: METHYLPREDNISOLONE SOD SUCC 40 MG/ML VIAL 1ML IV SCH ×2 (09:30→22:14)
[2018-04-24] MEDS: OXYBUTYNIN CHLORIDE 5 MG TAB PO SCH ×3 (09:30→22:14)
[2018-04-24] MEDS: OYST-CAL-D 500MG TABLET PO SCH ×2 (09:30→16:23)
[2018-04-24] MEDS: FAMOTIDINE 20 MG/2 ML VIAL IV SCH ×2 (09:30→16:23)
[2018-04-24] MEDS: FLUCONAZOLE 200 MG/100 ML 100 ML IV SCH (09:30)
--- NOTE | 2018-04-24 09:45 | NUR ---
ST Note: Pt remains intubated. NGT in place. Pt will require objective re-assessment of swallow safety after extubation.
[2018-04-24] MEDS: MEROPENEM 1GM 100 ML IV SCH ×2 (10:50→23:30)
--- NOTE | 2018-04-24 11:36 | Diagnostic Imaging Report ---
EXAMINATION: Renal ultrasound. CLINICAL HISTORY :Acute kidney injury COMPARISON: CT abdomen and pelvis without contrast 04/12/2018 TECHNIQUE: Grayscale and color Doppler evaluation of the kidneys and bladder was performed in transverse and longitudinal planes. DISCUSSION: RIGHT KIDNEY: The right kidney measures 11.4 cm in length and shows normal echogenicity. 2 punctate shadowing calculi are identified within the interpolar region, seen to better advantage on comparison CT. LEFT KIDNEY: The left kidney measures 10 cm in length and shows normal echogenicity. Small peripelvic cyst is identified, measuring 1.5 cm in greatest dimension. Punctate nonobstructing calculi described on the comparison CT are poorly visualized by sonography. BLADDER: Collapsed around a Barrera catheter IMPRESSION: Punctate bilateral renal calculi seen to better advantage on comparison CT. Small peripelvic left renal cyst Signed by: Dr. Hossein Michel M.D. on 04/24/2018 11:32 AM
--- NOTE | 2018-04-24 12:17 | Consultation ---
DATE OF CONSULTATION: April 24, 2018 NEPHROLOGY CONSULTATION REASON FOR CONSULTATION: Acute kidney injury. HPI: This is a 62-year-old male currently intubated, who has been here for a significant period of time, who apparently came in with underlying gross hematuria on anticoagulation due to a history of pulmonary embolism. He had a significant hospital course, now being consulted for acute kidney injury. Apparently the patient has had dkjzz-lv-ofeccnb hypercapnic respiratory failure and was weaned with several attempts but failed on several occasions. He was also being treated for exacerbation of COPD. He also underwent cystoscopy due to hematuria and found to have some bladder masses. The biopsy reports are currently pending. Currently on CBI as well. He also has some pulmonary nodules for which he had a lung biopsy performed on 04/21/2018, pending pathology. His hemoglobin has been stable. Nephrology is consulted for underlying acute kidney injury. The patient also has an IVC filter due to the fact that it is very difficult for them to give anticoagulation due to the fact the patient has hematuria every time they start anticoagulation. On further discussion with the at bedside as the patient is currently intubated, the patient has a history of NSAID usage due to chronic knee pain. No reports of any zakd-hul-liakoeh herbal supplements. No reports of CKD in the past. He did have a history of renal stones in the past. No chronic urinary tract infection or any BPH issue according to the . She reports he follows up with his PCP pretty routinely with no other issues. He was never told that he had CKD in the past. The patient was seen and evaluated at bedside on the medical floor in the ICU. Currently he is doing okay. He is intubated and very difficult to wean off the need of the vent. REVIEW OF SYSTEMS: Unable to obtain review of systems as the patient is currently intubated. VITALS: Temperature is 99.8, pulse 91, is 96. He is on a ventilator. The blood pressure is 100/70. MAP is 79. LABS: White count 19.9, hemoglobin 10.4, hematocrit 32, platelets 104. Coagulation: PT 15, INR 1.18, PTT 27. Fibrinogen 301. Chemistries: Sodium 145, potassium 5.1, chloride 107, bicarb 28, anion gap 15, BUN 72, creatinine 2, glucose 166, calcium 7.6, magnesium 2.5. BNP is 431. MICROBIOLOGY: Blood cultures were negative. Urine culture is negative. Sputum culture shows keya. There is a repeat sputum culture that shows gram-negative bacilli. IMAGING STUDIES: Last chest x-ray performed this morning shows decreased pulmonary edema. PHYSICAL EXAMINATION GENERAL: He is intubated and sedated. HEENT: Head is normocephalic and atraumatic. Eyes: Pupils are equal and reactive to light bilaterally. Extraocular movements are intact bilaterally. NECK: Supple. Good range of motion. Throat with no evidence of any erythema or exudates in the posterior pharynx. Has poor dentition. PULMONARY: Clear to auscultation bilaterally. He does have positive rales. No wheezing. No crackles. CARDIOVASCULAR: Positive S1 and S2. No murmurs, rubs or gallops appreciated. ABDOMEN: Soft, nondistended and nontender to palpation. Bowel sounds present. MUSCULOSKELETAL: Unable to obtain. He is intubated. NEUROLOGICAL: Intubated. SKIN: Intact. Warm to touch. Good cap refill. PSYCHIATRIC: Intubated. EXTREMITIES: No edema. Good range of motion throughout. IMPRESSION 1. Acute kidney injury on chronic kidney disease, stage 3. 2. Anemia of chronic disease. 3. Uremia. 4. Acute respiratory failure currently on mechanical ventilator. PLAN: At this time, in reviewing his creatinine trend here at this hospital, his creatinine last month went as low as 1.2, but when he was discharged, it was 1.5. On his admission this time, creatinine was 1.9. He kind of downtrended but now currently at 2, almost close to his baseline. I am not sure what the patient's true creatinine or renal function is as we do not have any of the records. The reports she was never told that he had CKD in the past. Currently, his electrolytes are stable. He is making urine, but it is very hard to measure as he is currently on continuous bladder irrigation. At this time, I am going to order a renal ultrasound to evaluate for chronicity of the kidneys. BUN is elevated. It could be from steroids as well and tube feeds. The patient likely has some component of ATN as well as the patient was hypotensive on several occasions. He did require some pressors at some point. I would not be shocked if he develops an ATN here in the next several days if he continues on this route. We will get repeat labs in the morning. I am going to go ahead and order urine eosinophils. Urine electrolytes would be very useless in this case because he is currently on CBI, and it would not be of any help, which would give us a false reading. He does not show any signs of eosinophils in the serum, which is good considering it is less likely to be an AIN picture. Will monitor and evaluate the renal function and follow the patient daily as well. Otherwise, we will repeat the renal ultrasound, urine eosinophils and monitor his electrolytes very closely. There is no clear indication at this moment for WELDER EXPLOSION at this time. Job#: [id number]
--- NOTE | 2018-04-24 14:49 | NUR ---
Nutrition Intervention Note RD Recommendation(s) for Physician: -Rec to continue TF of Vital HP and advance as tolerated to goal of 60mL/hr to provide 1560kcal, 137g protein, 1304mL water. -Free water flushes of 50mL Q 4hr; additional water per MD discretion. -Check daily labs, weight, and gastric tolerance Plan of Care: RD following, monitoring for tolerance and adequacy, TF rec Nutrition reason for involvement: Follow up RD Assessment (04/24) Pt was discussed during AM rounds. Pt remained intubated and on vent. Pt was difficult to wean off the need of the vent. Per RN Debbie, TF was advanced to 45mL/hr and tolerated well without any gastric residual. No BM reported since 04/20; flatus was present. Communicated TF goal with RN. Will continue to monitor and follow. Please consult as needed. (04/19) Pt was discussed during AM rounds. Pt was intubated and on vent. Only propofol running through IV. Spoke with MALAIKA العراقي about plan for nutrition; RN will discuss with Dr. Castillo. Will communicate RD rec. (04/14) Chart reviewed. Labs and meds reviewed. 62yo M, who is admitted for hematuria. Patient is currently waiting for CT-guided lymph node biopsy on Tuesday. Anticoagulation is on hold. 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 Pt denied chewing/swallowing problems and nausea/vomiting. Pt reported not liking hospital foods; family has been bringing foods from home. Will continue to monitor and follow. Principal Problems/Diagnoses: 1. Gross hematuria. 2. Urinary tract infection. 3. Coagulopathy. 4. Thrombocytopenia. 5. Kidney stone on prior computerized tomography scan. 6. Multiple lung lesions and retroperitoneal lymphadenopathy consistent with metastases. PMH: Hypertension, pulmonary embolism, lung mass, abdominal lymphadenopathy GI: Abdomen soft, non-tender, round, flatus present Skin: intact Labs: (04/20) BUN 72 H, Creatinine 2.01 H, Glucose 156 H, Ca 7.6 L, Mg 2.5 H (04/19) BUN 45 H, 1.34 H, Glucose 129 H, Ca 8.2 L Meds: solu-medrol, pepcid, oscal D, propofol, abx Ht: 70in Wt: 178.38lb BMI: 25.6kg/m2 IBW: 166lb Malnutrition Evaluation (04/14/2018) The patient does not meet criteria for a specified degree of malnutrition at this time. Will re-evaluate at follow-up as appropriate. Nutrition Prescription (Diet Order): Vital HP @60mL/hr Estimated Nutritional Needs: Calories: 1458 - 1620kcal (18-20kcal/kg/d) Weight used: current BW Protein: 105-162g (1.3-2g/k/d) Weight used: current BW Diet Adequacy: Not meeting calorie needs, Not meeting protein needs Diet Education Needs Assessment: Diet education not indicated. Nutrition Care Level: mod (new TF) Nutrition Diagnosis: Inadequate oral intake related to current medical status as evidenced by pt requiring EN as main source of nutrition. Goal: Patient will meet 75-100% of estimated needs by follow up Progress: Progressing Interventions: Composition, Rate, Route Monitoring/Evaluation: Total energy intake, Total protein intake, Formula/Solution, Weight change, Labs, I & O Signed: Becky Souza MS, RD, LD
[2018-04-24] MEDS: ACETAMINOPHEN 325 MG TAB PO PRN (16:51)
[2018-04-25] VITALS (26 sets, daily range): BP systolic 80–119; BP diastolic 63–83
[2018-04-25] MEDS: PROPOFOL IV EMULSION 10MG/ML 100 ML IV SCH ×5 (05:00→20:36)
[2018-04-25 05:42] LABS: BASOPHILS % 0.1 % (0.0-1.0); HEMATOCRIT 32.3 % (38.2-49.6); HEMOGLOBIN 10.4 g/dL (14.0-18.0); LYMPHOCYTES # (AUTO) 0.6 (1.0-3.2); LYMPHOCYTES % 2.5 % (18.0-39.1); MEAN CORPUSCULAR HEMOGLOBIN 29.9 pg (28-32); MEAN CORPUSCULAR HGB CONC 32.2 g/dL (31-35); MEAN CORPUSCULAR VOLUME 92.8 fL (81-99); MONOCYTES # (AUTO) 0.9 (0.2-0.8); MONOCYTES % 4.2 % (4.4-11.3); NEUTROPHILS # (AUTO) 20.1 (2.1-6.9); PLATELET COUNT 103 x10e3/uL (140-360); RED BLOOD COUNT 3.48 x10e6/uL (4.3-5.7); RED CELL DISTRIBUTION WIDTH 14.1 % (11.7-14.4)
[2018-04-25 06:05] LABS: INR 1.17; PROTHROMBIN TIME 15.9 seconds (11.9-14.5)
[2018-04-25 06:06] LABS: PARTIAL THROMBOPLASTIN TIME 28.6 seconds (23.8-35.5)
[2018-04-25 06:14] LABS: ANION GAP 16.1 mmol/L (8-16); CALCIUM 7.5 mg/dL (8.4-10.2); MAGNESIUM 2.4 MG/DL (1.3-2.1); POTASSIUM 5.1 mmol/L (3.5-5.1)
--- NOTE | 2018-04-25 06:46 | Diagnostic Imaging Report ---
EXAMINATION: CHEST SINGLE (PORTABLE) INDICATION: ^Resp failure ^[id number] ^0530 COMPARISON: 04/24/2018 FINDINGS: AP view TUBES and LINES: Stable endotracheal tube, nasogastric tube, and right intrajugular central line. LUNGS: Lungs are well inflated. Bilateral airspace opacities are again seen. PLEURA: No pneumothorax. Small left pleural effusion. HEART AND MEDIASTINUM: The cardiomediastinal silhouette is unremarkable. BONES AND SOFT TISSUES: No acute osseous lesion. Soft tissues are unremarkable. UPPER ABDOMEN: No free air under the diaphragm. IMPRESSION: No significant interval change from prior exam. Bilateral airspace opacities, representing edema and/or pneumonia. Signed by: Dr. Allen Ferrari MD on 04/25/2018 6:43 AM
[2018-04-25 07:38] LABS: ANISOCYTOSIS SLIGHT; HYPOCHROMASIA SLIGHT; LYMPHOCYTES % (MANUAL) 2 % (19-48); MONOCYTES % (MANUAL) 3 % (3.4-9.0); MYELOCYTES % (MANUAL) 1 % (0-0); NEUTROPHILS % (MANUAL) 94 % (40-74); PLATELET ESTIMATE SLIGHTLY DECREASED; PLATELET MORPHOLOGY COMMENT FEW LARGE; RBC MORPHOLOGY COMMENT NORMAL
--- NOTE | 2018-04-25 09:50 | Progress Note ---
DATE: April 25, 2018 SUBJECTIVE: Patient seen and examined today. Patient currently intubated, appears comfortable. No evidence of any active bleeding. Patient currently not on anticoagulation. PHYSICAL EXAMINATION: GENERAL: Intubated, sedated. HEENT: Normocephalic, atraumatic. Sclerae pale. Conjunctivae clear. NECK: Supple. CHEST: Decreased breath sounds at bases. ABDOMEN: Soft. EXTREMITIES: No edema. LABS AND IMAGING: Reviewed. ASSESSMENT AND PLAN: 1. Patient with history of lung mass, lung pneumonia, sepsis, respiratory failure, pulmonary embolism. Patient had lung biopsy pathologist. So far they found some malignant cells. They are still working on the immunostaining to look for the primary or to confirm the lung. 2. Blood counts stable. 3. Discussed with family. So far holding anticoagulation because of persistent bleeding with anticoagulation. 4. Continue remaining care. 5. Further management after pathology. 6. Will follow patient. Job#: [id number]
[2018-04-25] MEDS: METHYLPREDNISOLONE SOD SUCC 40 MG/ML VIAL 1ML IV SCH ×2 (10:19→20:36)
[2018-04-25] MEDS: FAMOTIDINE 20 MG/2 ML VIAL IV SCH ×2 (10:19→16:57)
[2018-04-25] MEDS: FLUCONAZOLE 200 MG/100 ML 100 ML IV SCH (10:20)
[2018-04-25] MEDS: MEROPENEM 1GM 100 ML IV SCH (10:20)
[2018-04-25] MEDS: OXYBUTYNIN CHLORIDE 5 MG TAB PO SCH ×3 (10:20→20:36)
[2018-04-25] MEDS: OYST-CAL-D 500MG TABLET PO SCH ×2 (10:20→16:57)
--- NOTE | 2018-04-25 10:24 | Progress Note ---
DATE: April 25, 2018 NEPHROLOGY PROGRESS NOTE SUBJECTIVE: Patient is at baseline with no changes today. He is still intubated and sedated. Waiting for pathology report today. No overnight events. His urine output is good. OBJECTIVE VITAL SIGNS: Temperature 98.4, pulse 99, respiratory rate is 17, blood pressure is 119/81. He is still on mechanical ventilator. GENERAL: He is intubated and sedated. HEENT: Head is normocephalic and atraumatic. Eyes: Pupils equal, round and reactive to light bilaterally. Extraocular movements intact bilaterally. NECK: Supple. Good range of motion. Throat with no evidence of any erythema or exudates in the posterior pharynx. Has poor dentition. PULMONARY: Clear to auscultation bilaterally. No wheezing. No rales. No rhonchi. No crackles appreciated. CARDIOVASCULAR: Positive S1 and S2. No murmurs, rubs or gallops appreciated. ABDOMEN: Soft, nondistended and nontender to palpation. Bowel sounds present. MUSCULOSKELETAL: He is intubated and sedated. NEUROLOGICAL: Intubated and sedated. SKIN: Intact. Warm to touch. PSYCHIATRIC: Intubated and sedated. EXTREMITIES: Maybe minimal edema throughout. LABS: White count 21.8, hemoglobin 10.5, hematocrit is 32, and platelets of 103,000. Chemistry: Sodium 144, potassium 5.1, chloride 108, bicarb 25, anion gap of 16, BUN 74, creatinine is 2. Glucose is 165. His magnesium is 2.4. His electrolytes are stable. IMAGING STUDIES: Renal ultrasound shows the right kidney to be 11.4 cm and left kidney to be 10 cm in size. He does have some renal calculi seen. Chest x-ray from this morning showed no significant interval change from prior exam. Bilateral airspace opacity likely representing edema and/or pneumonia. IMPRESSION 1. Acute kidney injury on chronic kidney disease, stage 3. 2. Anemia of chronic disease. 3. Uremia likely due to steroids, as well as tube feeds. 4. Acute respiratory failure, on mechanical ventilator. PLAN: At this time, his creatinine has not budged. It seems to be his baseline. Though it is not normal, he is CKD, stage 3. He has been pretty consistent in terms of his renal function. His electrolytes are stable. I will go ahead and put him on Lasix 40 mg IV q.8 h. times 3 doses. Evaluate his electrolytes and labs in the morning. He likely developed some sort of ATN, but he has improved tremendously. His urinalysis shows no urine eosinophils. It does show some wbcs and rbcs, but seems to be more of a contaminate more than anything. This UA was on April 08, 2018, actually. At this time, will continue the same plan of care. Monitor him very closely. Get a.m. labs with Lasix started. Job#: [id number] MARY
[2018-04-25] MEDS: FUROSEMIDE INJ 10 MG/ML 4 ML VIAL IV SCH ×2 (10:26→17:00)
--- NOTE | 2018-04-25 16:18 | Diagnostic Imaging Report ---
EXAM: Chest radiograph - 1 view, KUB 1 view. INDICATION: Nasogastric tube placement. COMPARISON: KUB 04/23/2018 and chest radiograph 04/25/18. FINDINGS: TUBES AND LINES: Enteric tube terminates in the stomach, the side port is below the GE junction. IVC filter with tip to the right of the superior endplate of L1 vertebral body. Stable right IJ central line terminating in the expected location of the upper SVC. ET tube terminates at the thoracic inlet approximately 8 cm above the sheron. Chest radiograph: The lungs are moderately inflated. Bilateral airspace opacities are again noted, most confluent in the lower lungs. No evidence of pneumothorax. Small left pleural effusion persists. Heart and mediastinal silhouette is unchanged. KUB No specific evidence of bowel obstruction. Mild degenerative changes in the lumbar spine and pelvis. IMPRESSION: Enteric tube terminates in the expected location of the stomach. ET tube terminates at the thoracic inlet, unchanged from 04/24/18, and could be advanced if clinically indicated. Similar appearance of bilateral airspace opacities, which could represent pulmonary edema or pneumonia. Signed by: Dr. Nieves Boykin MD on 04/25/2018 4:15 PM
[2018-04-26] VITALS (26 sets, daily range): BP systolic 83–118; BP diastolic 48–76
[2018-04-26] MEDS: FUROSEMIDE INJ 10 MG/ML 4 ML VIAL IV SCH (02:40)
[2018-04-26 05:09] LABS: BASOPHILS % 0.1 % (0.0-1.0); HEMATOCRIT 35.4 % (38.2-49.6); HEMOGLOBIN 11.5 g/dL (14.0-18.0); LYMPHOCYTES # (AUTO) 0.6 (1.0-3.2); LYMPHOCYTES % 3.1 % (18.0-39.1); MEAN CORPUSCULAR HEMOGLOBIN 29.9 pg (28-32); MEAN CORPUSCULAR HGB CONC 32.5 g/dL (31-35); MEAN CORPUSCULAR VOLUME 92.2 fL (81-99); MONOCYTES # (AUTO) 0.7 (0.2-0.8); MONOCYTES % 3.2 % (4.4-11.3); PLATELET COUNT 134 x10e3/uL (140-360); RED BLOOD COUNT 3.84 x10e6/uL (4.3-5.7)
[2018-04-26 05:41] LABS: ANION GAP 19.5 mmol/L (8-16); MAGNESIUM 2.1 MG/DL (1.3-2.1); POTASSIUM 4.5 mmol/L (3.5-5.1)
[2018-04-26 05:46] LABS: INR 1.24; PROTHROMBIN TIME 16.7 seconds (11.9-14.5)
--- NOTE | 2018-04-26 09:07 | Progress Note ---
DATE: April 26, 2018 Patient seen and examined today. Patient appeared comfortable and intubated. No evidence of any active bleeding. PHYSICAL EXAMINATION GENERAL: Intubated and sedated. HEENT: Normocephalic and atraumatic. Sclerae pink. Conjunctivae clear. NECK: Supple. CHEST: Decreased breath sounds at bases. ABDOMEN: Soft. EXTREMITIES: No edema. LABS AND IMAGING: Reviewed. ASSESSMENT AND PLAN: Patient with a history of multiple medical conditions, including chronic obstructive pulmonary disease, lung mass. So far, prelim report consistent with malignancy. Pulmonary embolism, pneumonia, respiratory failure. Clinical condition is same. Platelet counts are improving. Hemoglobin is stable. White cell count is still high. Kidney function also stable. At current, continue current care. Will follow final pathology report. Patient is too sick for any aggressive management. Patient's family was informed. Understands the plan of care. Continue remaining care. Will follow the patient. Job#: [id number] MARY
[2018-04-26] MEDS: OYST-CAL-D 500MG TABLET PO SCH ×2 (09:15→18:16)
[2018-04-26] MEDS: MEROPENEM 1GM 100 ML IV SCH (09:15)
[2018-04-26] MEDS: PROPOFOL IV EMULSION 10MG/ML 100 ML IV SCH ×4 (09:15→21:08)
[2018-04-26] MEDS: METHYLPREDNISOLONE SOD SUCC 40 MG/ML VIAL 1ML IV SCH ×2 (09:15→20:51)
[2018-04-26] MEDS: OXYBUTYNIN CHLORIDE 5 MG TAB PO SCH ×3 (09:15→20:51)
[2018-04-26] MEDS: FAMOTIDINE 20 MG/2 ML VIAL IV SCH ×2 (09:15→17:31)
[2018-04-26] MEDS: FLUCONAZOLE 200 MG/100 ML 100 ML IV SCH (12:00)
--- NOTE | 2018-04-26 13:08 | Progress Note ---
DATE: 04/26/2018 Nephrology Progress Note SUBJECTIVE: The patient is still intubated without changes. He is making good urine output. OBJECTIVE: VITAL SIGNS: Temperature is 97.9, pulse is 85, respiratory rate is 21, blood pressure 118/48, and pulse ox 100%. He is on mechanical ventilator. GENERAL: Intubated and sedated. HEENT: Head, normocephalic and atraumatic. Eyes, pupils equal and reactive to light. Extraocular movements are intact. PULMONARY: auscultated bilaterally. He is intubated and sedated. CARDIOVASCULAR: Positive S1 and S2. No murmur, rub, or gallop. ABDOMEN: Soft, nontender, nondistended . Bowel sounds present. MUSCULOSKELETAL: NEUROLOGICAL: Intubated . PSYCHIATRIC: Intubated. LABORATORY DATA: Labs show white count 20, hemoglobin 11.5, hematocrit 35, and platelet of 134. Coagulation, PT 16, INR 1.2, and PTT 28. Chemistry, sodium is 141, potassium 4.5, chloride 102, bicarb 27 , BUN 19, creatinine is 2, and glucose is 161. MICROBIOLOGY: Noted. IMAGING STUDIES: None. IMPRESSION: 1. chronic kidney disease, stage 3. Currently creatinine at baseline around 2. 2. Anemia of chronic disease. 3. likely secondary to steroids and tube feeds. 4. Acute respiratory failure, on mechanical ventilator. PLAN: At this time, his creatinine seems to be at baseline. Creatinine is 2 right now. His electrolytes are stable. His BUN is elevated and it is likely due to steroids and tube feeds . At this time, there is no acute indication for renal replacement therapy at this time. He is making good urine output. His other labs are stable. His vitals are stable. He is started on Lasix as well. We will get a.m. labs as well. Otherwise, we will continue to follow with the current regime. MD SAIGE Pereyra/ALEXANDER /[id number]
[2018-04-26] MEDS: METOCLOPRAMIDE HCL 10 MG/2ML VIAL IV SCH ×2 (17:31→20:51)
[2018-04-26] MEDS: ONDANSETRON HCL INJ 2MG/ML 2ML 2 MG/ML VIAL IV PRN (20:51)
[2018-04-26] MEDS: SODIUM CHLORIDE FLUSH 10 ML SYR INJ PRN (20:52)
[2018-04-27] VITALS (18 sets, daily range): BP systolic 90–115; BP diastolic 64–84
[2018-04-27] MEDS: METOCLOPRAMIDE HCL 10 MG/2ML VIAL IV SCH ×4 (00:32→17:33)
[2018-04-27] MEDS: PROPOFOL IV EMULSION 10MG/ML 100 ML IV SCH ×4 (01:04→22:30)
[2018-04-27 05:52] LABS: BASOPHILS % 0.1 % (0.0-1.0); HEMATOCRIT 33.3 % (38.2-49.6); HEMOGLOBIN 10.7 g/dL (14.0-18.0); LYMPHOCYTES # (AUTO) 0.4 (1.0-3.2); LYMPHOCYTES % 2.2 % (18.0-39.1); MEAN CORPUSCULAR HEMOGLOBIN 29.9 pg (28-32); MEAN CORPUSCULAR HGB CONC 32.1 g/dL (31-35); MONOCYTES # (AUTO) 1.2 (0.2-0.8); MONOCYTES % 5.7 % (4.4-11.3); NEUTROPHILS # (AUTO) 18.1 (2.1-6.9); NEUTROPHILS % 89.4 % (38.7-80.0); PLATELET COUNT 111 x10e3/uL (140-360); RED BLOOD COUNT 3.58 x10e6/uL (4.3-5.7); RED CELL DISTRIBUTION WIDTH 13.7 % (11.7-14.4)
--- NOTE | 2018-04-27 05:53 | Diagnostic Imaging Report ---
EXAMINATION: CHEST SINGLE (PORTABLE) INDICATION: ^Intubated ^[id number] ^0450 COMPARISON: 04/25/2018 FINDINGS: AP view TUBES and LINES: Endotracheal tube approximately 6.4 cm above sheron. Nasogastric tube in place with tip extending beyond the inferior margin of the film. Stable right internal jugular central line. LUNGS: Lungs are well inflated. Pulmonary vascular congestion and mild interstitial edema. PLEURA: No pneumothorax. Trace left pleural effusion. HEART AND MEDIASTINUM: The cardiomediastinal silhouette is unremarkable. BONES AND SOFT TISSUES: No acute osseous lesion. Soft tissues are unremarkable. UPPER ABDOMEN: No free air under the diaphragm. IMPRESSION: Pulmonary vascular congestion and mild interstitial edema. Underlying infiltrate/nodule in the right lower lung field cannot be excluded. Trace left pleural effusion, improved when compared to prior x-ray. Signed by: Dr. Allen Ferrari MD on 04/27/2018 5:50 AM
[2018-04-27 06:01] LABS: INR 1.26; PARTIAL THROMBOPLASTIN TIME 26.2 seconds (23.8-35.5); PROTHROMBIN TIME 16.9 seconds (11.9-14.5)
[2018-04-27 06:11] LABS: CALCIUM 7.7 mg/dL (8.4-10.2); POTASSIUM 4.8 mmol/L (3.5-5.1)
[2018-04-27] MEDS: ONDANSETRON HCL INJ 2MG/ML 2ML 2 MG/ML VIAL IV PRN ×2 (06:49→20:13)
[2018-04-27 07:00] LABS: ANION GAP 12.8 mmol/L (8-16); CREATININE, SERUM 1.68 mg/dL (0.72-1.25)
[2018-04-27 07:37] LABS: LYMPHOCYTES % (MANUAL) 1 % (19-48); MONOCYTES % (MANUAL) 1 % (3.4-9.0); NEUTROPHILS % (MANUAL) 98 % (40-74)
[2018-04-27 07:38] LABS: HYPOCHROMASIA SLIGHT; PLATELET ESTIMATE SLIGHTLY DECREASED; PLATELET MORPHOLOGY COMMENT NORMAL; RBC MORPHOLOGY COMMENT NORMAL
[2018-04-27] MEDS: MEROPENEM 1GM 100 ML IV SCH (09:00)
--- NOTE | 2018-04-27 09:48 | Progress Note ---
DATE: April 27, 2018 Patient seen and examined today. Patient appears the same, still intubated, in restraints. PHYSICAL EXAMINATION GENERAL: Intubated. HEENT: Normocephalic and atraumatic. Sclerae are pink. Conjunctivae clear. NECK: Supple. CHEST: Decreased breath sounds at bases. ABDOMEN: Soft. EXTREMITIES: No edema. YOGA INSTRUCTOR: Awake, intubated. LABS AND IMAGING: Reviewed. ASSESSMENT AND PLAN: Patient with a history of multiple medical conditions including hypertension, chronic obstructive pulmonary disease, smoking, lung mass. Status post lung biopsy consistent with adenocarcinoma. History of bilateral pulmonary emboli. Discussed in detail with the patient and the family. The patient is physically not in condition to get any aggressive chemo management. The patient likely has stage-IV disease based on the scan. The current recommendation is to continue ICU management. Patient and the family are aware of the prognosis. Will continue remaining care. Will follow the patient closely. Job#: [id number]
[2018-04-27] MEDS: OXYBUTYNIN CHLORIDE 5 MG TAB PO SCH ×3 (10:35→20:13)
[2018-04-27] MEDS: OYST-CAL-D 500MG TABLET PO SCH ×2 (10:35→17:33)
[2018-04-27] MEDS: FAMOTIDINE 20 MG/2 ML VIAL IV SCH ×2 (10:35→17:33)
[2018-04-27] MEDS: METHYLPREDNISOLONE SOD SUCC 40 MG/ML VIAL 1ML IV SCH ×2 (10:35→20:13)
--- NOTE | 2018-04-27 11:02 | Diagnostic Imaging Report ---
Procedure: CT-guided fine-needle aspiration and core biopsy of a right lower lobe lung mass delinquent notice machine operator: Nieves Boykin MD Pre-operative diagnosis: Right lower lobe mass. Post-operative diagnosis: Right lower lobe mass with moderate perilesional hemorrhage. Anesthesia: General anesthesia per Anesthesia team. Conscious sedation: None. Additional Medications: Lidocaine 1% 10 cc for local anesthesia Fluoroscopy time: 0 Contrast used: 0 Estimated blood loss: Less than 10 cc Blood products administered: None Specimens: Fine-needle aspiration specimens x2, core biopsy specimens x 4 Implants: None Condition at completion: Stable Disposition: Returned to ICU. DISCUSSION: Informed consent was obtained from the patient's healthcare proxy and documented in the medical record after discussion of risks and benefits. Of note, the risk of pneumothorax and bleeding were discussed with the patient pre-intubation several days prior to the procedure and with the family after patient was intubated and in ICU. The healthcare proxy elected to proceed. The patient was placed in the prone position on the CT couch and a marker grid was placed over the right lower chest. Limited CT of the lower chest confirmed a suitable percutaneous approach to the right lower lobe mass. The overlying skin was prepped and draped in the standard sterile fashion. 1% lidocaine was infiltrated into the skin and subcutaneous tissues for local anesthesia. Then under intermittent CT guidance, a 18-gauge needle guide was advanced into the mass with a single pleural puncture. Subsequently, two fine-needle aspiration specimens were then obtained coaxially using 22-gauge needles and submitted to on-site cytopathology personnel. Intralesional location was confirmed. Subsequently, 4 core biopsy specimens were obtained using an 20-gauge, 1 cm throw core biopsy apparatus and placed in formalin. Repeat CT demonstrated a moderate amount of perilesional hemorrhage without pneumothorax. Patient continued to be hemodynamically stable although had a brief episode of hemoptysis that was suctioned which subsequently resolved. The introducer needle was removed. The patient tolerated the procedure well. FINDINGS: Right lower lobe pulmonary mass and multiple additional smaller lung nodules. Moderate perilesional hemorrhage post biopsy. Partially seen enteric tube and endotracheal tube. IMPRESSION: CT-guided fine-needle aspiration and core biopsies of a right lower lobe lung mass. Moderate perilesional hemorrhage post procedurally. Brief episode of hemoptysis which resolved with no change in patient stability. Serial chest radiographs will be obtained to assess stability. Signed by: Dr. Nieves Boykin MD on 04/26/2018 7:22 AM
[2018-04-27 13:21] LABS: ABG PCO2 45 mmHg (41-51); ABG PH 7.43 (7.31-7.41); ABG PO2 65 mmHg (80-105)
[2018-04-27 13:22] LABS: ABG HCO3 30 mmol/L (23-28)
--- NOTE | 2018-04-27 13:58 | Progress Note ---
DATE: 04/27/2018 Nephrology Progress Note SUBJECTIVE: The patient is doing well. No other issues. He is still intubated. His pathology report biopsy shows adenocarcinoma. This was discussed with the family by Oncology. OBJECTIVE: VITAL SIGNS: Temperature is 98.2, pulse is 92, respiratory rate is 22, and blood pressure is 91/71. He is on a mechanical ventilation with FiO2 of 50%. GENERAL: Physical exam reveals intubated and sedated. HEENT: Head is normocephalic and atraumatic. Eyes, pupils are equal and reactive to light bilaterally. Extraocular movements are intact bilaterally. NECK: Supple. Good range of motion . PULMONARY: Clear to auscultation bilaterally. No wheezing, rales, or rhonchi. No crackles appreciated. He is intubated. CARDIOVASCULAR: Positive S1 and S2. No murmur or gallop appreciated. ABDOMEN: Soft, nondistended, and nontender to palpation. Bowel sounds . NEUROLOGIC: Intubated and sedated. . EXTREMITIES: No edema. Good range of motion throughout. LABORATORY DATA: White count is 20, hemoglobin 10.7, hematocrit is 33, and platelets of 111. Chemistry, sodium is 142, potassium 4.8, chloride 107, bicarb 27, anion gap of 12, BUN is 95, creatinine is 1.68, much improved. IMPRESSION: 1. Acute kidney injury on chronic kidney disease, stage 3 with much improved creatinine. 2. Anemia of chronic disease. 3. Uremia secondary to steroids and tube feeds. 4. Acute respiratory failure, on mechanical ventilator. 5. Adenocarcinoma of the lung. PLAN: At this time, from a renal standpoint, his creatinine seems to have improved. He may have developed some slight ATN now, improved with creatinine of 1.68. His BUN is elevated due to steroids and tube feeds. We will continue with the same kind of care for now. Get a.m. labs. He has good urine output. MD SAIGE Pereyra/MODL /[id number]
--- NOTE | 2018-04-27 14:15 | NUR ---
Nutrition Intervention Note (Follow up) RD Recommendation(s) for Physician: -Rec to continue TF of Vital HP at goal of 60mL/hr to provide 1560kcal, 137g protein, 1304mL water. -Free water flushes of 50mL Q 4hr; additional water per MD discretion. -Check daily labs, weight, and gastric tolerance Plan of Care: RD following, monitoring for tolerance and adequacy, TF Nutrition reason for involvement: Follow up RD Assessment (04/27) Pt remained intubated and on vent. Per RN Macho, Reglan was given to promote gut motility. TF was well tolerated at goal rate with no residual. Weigh change noted. Will continue to monitor and follow. Please consult as needed. (04/24) Pt was discussed during AM rounds. Pt remained intubated and on vent. Pt was difficult to wean off the need of the vent. Per MALAIKA Lewis, TF was advanced to 45mL/hr and tolerated well without any gastric residual. No BM reported since 04/20; flatus was present. Communicated TF goal with RN. Will continue to monitor and follow. Please consult as needed. (04/19) Pt was discussed during AM rounds. Pt was intubated and on vent. Only propofol running through IV. Spoke with MALAIKA العراقي about plan for nutrition; RN will discuss with Dr. Castillo. Will communicate RD rec. (04/14) Chart reviewed. Labs and meds reviewed. 62yo M, who is admitted for hematuria. Patient is currently waiting for CT-guided lymph node biopsy on Tuesday. Anticoagulation is on hold. 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 Pt denied chewing/swallowing problems and nausea/vomiting. Pt reported not liking hospital foods; family has been bringing foods from home. Will continue to monitor and follow. Principal Problems/Diagnoses: 1. Gross hematuria. 2. Urinary tract infection. 3. Coagulopathy. 4. Thrombocytopenia. 5. Kidney stone on prior computerized tomography scan. 6. Multiple lung lesions and retroperitoneal lymphadenopathy consistent with metastases. PMH: Hypertension, pulmonary embolism, lung mass, abdominal lymphadenopathy GI: Abdomen soft, non-tender, round, flatus present Skin: intact Labs: (04/27) BUN 95 H, Creatinine 1.68 H, Glucose 181 H, Ca 7.7 L (04/20) BUN 72 H, Creatinine 2.01 H, Glucose 156 H, Ca 7.6 L, Mg 2.5 H (04/19) BUN 45 H, 1.34 H, Glucose 129 H, Ca 8.2 L Meds: solu-medrol, pepcid, oscal, propofol, reglan, zofran Ht: 70in Wt: 178.38lb; 265.56lb BMI: 25.6kg/m2 IBW: 166lb Malnutrition Evaluation (04/14/2018) The patient does not meet criteria for a specified degree of malnutrition at this time. Will re-evaluate at follow-up as appropriate. Nutrition Prescription (Diet Order): Vital HP @60mL/hr Estimated Nutritional Needs: Calories: 1458 - 1620kcal (18-20kcal/kg/d) Weight used: current BW Protein: 105-162g (1.3-2g/k/d) Weight used: current BW Diet Adequacy: meeting calorie needs, meeting protein needs Diet Education Needs Assessment: Diet education not indicated. Nutrition Care Level: low (stable TF) Nutrition Diagnosis: Inadequate oral intake related to current medical status as evidenced by pt requiring EN as main source of nutrition. Goal: Patient will meet 75-100% of estimated needs by follow up Progress: Goal met Interventions: Composition, Rate, Route Monitoring/Evaluation: Total energy intake, Total protein intake, Formula/Solution, Weight change, Labs, I & O Signed: Becky Souza, MS, RD, LD
--- NOTE | 2018-04-27 16:26 | NUR ---
WOUND CARE - PUP SCREEN- Marker present for wound to buttock. Myke Score 12 Alternating Pressure Air Mattress Strict PUP in progress - Bilateral Wrist Restraints in place - attempts to pull at lines. - Intubated. NGT in Place. HOB 30 Degrees. - Family at bedside - Restraints removed and reapplied during visit Skin Check Performed- - Patient turned on Right Side. - Diapered with Allevyn Foam Sacrum in place- dressing pulled back - No Pressure Ulcers Identified. - Shear Friction Precautions - Repositioned/Turned To Left after evaluation. - At Risk for Foot Drop. RECOMMENDATION: Continue Current Treatment Plan: Add Prevalon Boots to aide with Foot Drop. Myke Score 12 - Increase PUP protocol to Strict Protocol due to Restraints & Propofol use. - Bilateral Heels- Prevalon Boots While in Bed. - Allevyn Foam Heel Dressings to Bilateral Heels every other Day.(to reduce shear friction forces) - Strict Turning and Repositioning every 2 Hours - Continue Allevyn Sacrum Foam Dressing Daily. Addendum: 04/27/18 at 1636 by Michael Person RN Amended: Links added.
[2018-04-28] VITALS (27 sets, daily range): BP systolic 85–125; BP diastolic 62–87
[2018-04-28] MEDS: METOCLOPRAMIDE HCL 10 MG/2ML VIAL IV SCH ×4 (00:43→17:18)
[2018-04-28] MEDS: PROPOFOL IV EMULSION 10MG/ML 100 ML IV SCH (03:05)
[2018-04-28 05:33] LABS: BASOPHILS % 0.1 % (0.0-1.0); HEMATOCRIT 34.9 % (38.2-49.6); HEMOGLOBIN 11.6 g/dL (14.0-18.0); LYMPHOCYTES # (AUTO) 0.5 (1.0-3.2); MEAN CORPUSCULAR HEMOGLOBIN 30.8 pg (28-32); MEAN CORPUSCULAR HGB CONC 33.2 g/dL (31-35); MEAN CORPUSCULAR VOLUME 92.6 fL (81-99); MONOCYTES # (AUTO) 0.9 (0.2-0.8); MONOCYTES % 4.8 % (4.4-11.3); NEUTROPHILS # (AUTO) 15.9 (2.1-6.9); NEUTROPHILS % 90.7 % (38.7-80.0); PLATELET COUNT 104 x10e3/uL (140-360); RED BLOOD COUNT 3.77 x10e6/uL (4.3-5.7)
[2018-04-28 05:46] LABS: INR 1.2; PROTHROMBIN TIME 16.3 seconds (11.9-14.5)
[2018-04-28 05:47] LABS: PARTIAL THROMBOPLASTIN TIME 27.2 seconds (23.8-35.5)
[2018-04-28 05:58] LABS: ANION GAP 14.9 mmol/L (8-16); CALCIUM 8.2 mg/dL (8.4-10.2); CREATININE, SERUM 1.66 mg/dL (0.72-1.25); MAGNESIUM 2.4 MG/DL (1.3-2.1); POTASSIUM 4.9 mmol/L (3.5-5.1)
--- NOTE | 2018-04-28 07:00 | NUR ---
RECVD REPORT. ASSESSMENT COMPLETED AND RECORDED. VSS AND RECORDED. PT INTUBATED, SEDATION IS OFF. FAMILY IS AT BEDSIDE. REVIEWED POC WITH THEM. THEY VERBALIZE UNDERSTANDING AND CONSENT.
--- NOTE | 2018-04-28 07:02 | NUR ---
Report given to Kasi DAI. Pt awake, makes purposeful movements, does not follow nurse's commands, tracks people. TF and sedation held for possible extubation.
[2018-04-28] MEDS: FAMOTIDINE 20 MG/2 ML VIAL IV SCH ×2 (08:24→15:41)
[2018-04-28] MEDS: METHYLPREDNISOLONE SOD SUCC 40 MG/ML VIAL 1ML IV SCH ×2 (08:24→20:30)
[2018-04-28] MEDS: OXYBUTYNIN CHLORIDE 5 MG TAB PO SCH ×3 (08:24→21:00)
[2018-04-28] MEDS: OYST-CAL-D 500MG TABLET PO SCH ×2 (08:25→15:41)
--- NOTE | 2018-04-28 08:53 | NUR ---
DR VELEZ, SIGNING OFF CASE, PT ANTICIPATED EXTUBATION AND HOSPICE CARE. DR OWENS MAKING ROUNDS, NO NEW ORDERS GIVEN AT THIS TIME.
--- NOTE | 2018-04-28 09:09 | Progress Note ---
DATE: April 28, 2018 SUBJECTIVE: Patient seen and examined today. Patient appeared same, still awake, likely extubate today. Patient's family was present at the bedside. PHYSICAL EXAMINATION: GENERAL: Awake, intubated. HEENT: Normocephalic, atraumatic. Sclerae pale. Conjunctivae clear. NECK: Supple. CHEST: Decreased breath sounds at bases. ABDOMEN: Soft. EXTREMITIES: No edema. LABS AND IMAGING: Reviewed. ASSESSMENT AND PLAN: Patient with history of multiple medical conditions including chronic obstructive pulmonary disease, smoking, hypertension, chronic lung disease, pulmonary embolism, end stage for lung cancer. Patient in respiratory failure. Patient's condition persistently worsening. Family discussed. Goals of care discussed and likely hospice care. Patient will be extubated and likely go to the hospice. I will sign off from this case. Patient will be followed with hospice care. Job#: [id number]
--- NOTE | 2018-04-28 10:15 | NUR ---
ike banerjee making rounds, states pt does want ett out and does wish ett back in if absolutely necessary. advised on trauma that may be caused by extubating and may make reintubating difficult or imposible. pt and family nod to understanding and want to try. dr suresh called no response at this time.
--- NOTE | 2018-04-28 12:15 | NUR ---
vernon suresh ok to extubated. extubated per rt. bipap on stand by. [id number] l nc.
[2018-04-28] MEDS: ALBUTEROL/IPRATROPIUM 3 ML NEB NEB PRN (12:30)
--- NOTE | 2018-04-28 12:43 | NUR ---
unable to tolerate nc, start on bipap now
--- NOTE | 2018-04-28 12:57 | Progress Note ---
DATE: 04/27/2018 Pain Management Progress Note REASON FOR FOLLOWUP: Pain management. SUBJECTIVE: This patient is a 62-year-old male with history of multiple issues of ongoing pain. Pain is 2 to 10/10 and 10 being worse. He has been in ICU and been intubated after lung biopsy was done. He had been admitted with history of hematuria and pericarditis and pain on urination initially, but later on found to be lung lesion on the CT scan. OBJECTIVE: GENERAL: Not in pain, not in acute distress, still intubated. VITAL SIGNS: Stable. Hemodynamically stable. HEENT: Normocephalic. NECK: Supple. LUNGS: Air entry bilaterally. HEART: Regular rate and rhythm. ABDOMEN: Obese, soft. LABORATORY DATA: Noted. ASSESSMENT AND PLAN: The patient with chronic pain syndrome underwent lung biopsy, being intubated in ICU with continued supportive care. He is extubated. We will follow him. At least, he is very stable and pain being very well under control at this moment, we will follow him. Thank you Dr. Willoughby for this patient. I will follow him with you. MD SHASTA Johnson/ALEXANDER /[id number]
[2018-04-28] MEDS ORDERED: FENTANYL 75MCG/HR PATCH TD SCH ×2 (15:45→16:00)
--- NOTE | 2018-04-28 16:10 | NUR ---
PT SIGNED CHOICE WITH [facility] FOR EDUCATION. THEY SPOKE WITH REP HOLLAND, WILL LET KNOW DECISION ON FAMILY AND HOSPICE SIDE WHEN DECISION IS MADE.
[2018-04-28] MEDS ORDERED: FENTANYL 75MCG/HR PATCH TD ONE (16:23)
[2018-04-28] MEDS: ONDANSETRON HCL INJ 2MG/ML 2ML 2 MG/ML VIAL IV PRN (19:42)
[2018-04-29] VITALS (26 sets, daily range): BP systolic 75–148; BP diastolic 57–92
--- NOTE | 2018-04-29 00:03 | NUR ---
Bedside report given to Grover RN at 2250. Patient and family aware of nurse staff change.
[2018-04-29] MEDS: METOCLOPRAMIDE HCL 10 MG/2ML VIAL IV SCH ×4 (00:28→16:57)
[2018-04-29] MEDS: ONDANSETRON HCL INJ 2MG/ML 2ML 2 MG/ML VIAL IV PRN ×2 (00:30→05:10)
[2018-04-29] MEDS: SODIUM CHLORIDE FLUSH 10 ML SYR INJ PRN (05:11)
[2018-04-29 06:00] LABS: BASOPHILS # (AUTO) 0.1 (0.0-0.1); BASOPHILS % 0.2 % (0.0-1.0); HEMATOCRIT 39.9 % (38.2-49.6); HEMOGLOBIN 13.1 g/dL (14.0-18.0); LYMPHOCYTES # (AUTO) 0.8 (1.0-3.2); LYMPHOCYTES % 2.7 % (18.0-39.1); MEAN CORPUSCULAR HEMOGLOBIN 30.1 pg (28-32); MEAN CORPUSCULAR HGB CONC 32.8 g/dL (31-35); MEAN CORPUSCULAR VOLUME 91.7 fL (81-99); MONOCYTES # (AUTO) 0.7 (0.2-0.8); MONOCYTES % 2.5 % (4.4-11.3); NEUTROPHILS # (AUTO) 27.3 (2.1-6.9); NEUTROPHILS % 93.3 % (38.7-80.0); PLATELET COUNT 101 x10e3/uL (140-360); RED BLOOD COUNT 4.35 x10e6/uL (4.3-5.7); RED CELL DISTRIBUTION WIDTH 14.3 % (11.7-14.4)
[2018-04-29 06:24] LABS: INR 1.16; PARTIAL THROMBOPLASTIN TIME 29.1 seconds (23.8-35.5); PROTHROMBIN TIME 15.8 seconds (11.9-14.5)
[2018-04-29 06:25] LABS: CALCIUM 8.7 mg/dL (8.4-10.2); CREATININE, SERUM 1.63 mg/dL (0.72-1.25)
[2018-04-29] MEDS: OXYBUTYNIN CHLORIDE 5 MG TAB PO SCH ×4 (06:34→20:52)
--- NOTE | 2018-04-29 07:00 | NUR ---
recvd report. assessment completed and recorded. vss and recorded. at bedside. they verbalize undersanding and consent with current care.
[2018-04-29 07:35] LABS: LYMPHOCYTES % (MANUAL) 2 % (19-48); MONOCYTES % (MANUAL) 1 % (3.4-9.0); NEUTROPHILS % (MANUAL) 97 % (40-74)
[2018-04-29 07:36] LABS: PLATELET ESTIMATE SLIGHTLY DECREASED; PLATELET MORPHOLOGY COMMENT NORMAL; RBC MORPHOLOGY COMMENT NORMAL
--- NOTE | 2018-04-29 08:30 | NUR ---
al, student services coordinator making rounds, notified of increased wbc and sirs alert. orders recvd and being completed.
[2018-04-29] MEDS: OYST-CAL-D 500MG TABLET PO SCH ×2 (08:46→16:57)
[2018-04-29] MEDS: FAMOTIDINE 20 MG/2 ML VIAL IV SCH ×2 (08:46→16:57)
[2018-04-29] MEDS ORDERED: CEFEPIME HCL 1 GM VIAL IV SCH (09:15)
[2018-04-29] MEDS ORDERED: VANCOMYCIN 1GM/NS 250 ML 250 ML IV SCH (09:15)
--- NOTE | 2018-04-29 09:30 | NUR ---
pt increased discomfort, called chriss, called dr elkins, states vm is available. increased sob called rt, discussed with code status. states to be unsure and will talke to family, pt critical and labile will continue to monitor.
[2018-04-29] MEDS ORDERED: SODIUM CHLORIDE 0.9% 250ML 250 ML ONE (09:50)
[2018-04-29] MEDS: CEFEPIME 1GM/NS 0.9% 50 ML 50 ML IV SCH ×2 (09:56→20:52)
[2018-04-29 09:57] LABS: ABG HCO3 30 mmol/L (23-28); ABG PCO2 45 mmHg (41-51); ABG PH 7.44 (7.31-7.41); ABG PO2 80 mmHg (80-105)
--- NOTE | 2018-04-29 10:51 | NUR ---
dr lord making rounds.
--- NOTE | 2018-04-29 11:32 | NUR ---
ike banerjee at bedside. discussing level of care and change in code status. discussing with kids at this time.
[2018-04-29] MEDS: PROPOFOL IV EMULSION 10MG/ML 100 ML IV SCH (13:00)
--- NOTE | 2018-04-29 13:14 | NUR ---
SPOKE WITH FAMILY WHOM WOULD LIKE TO SPEAK TO A COUPLE MORE COMPANIES FOR HOSPICE TO GET ALL INFORMATION. SPOKE WITH BELEN FROM [facility] WHO WILL COME OUT TODAY TO SPEAK WITH FAMILY. THEY PROVIDE SERVICE IN BOTH THE LOCAL AREA AND AREA WHERE FAMILY LIVES. ALSO CONTACTED RENEE WITH [facility] AND THEY WILL COME MEET WITH FAMILY TO DISCUSS WHAT THEY CAN DO FOR FAMILY AND PT IN AREA. WHEN DECISION IS MADE WILL LET SW KNOW OUT COME.
[2018-04-29] MEDS: HYDROMORPHONE 2MG/ML 2 MG/ML ML IV PRN (13:36)
--- NOTE | 2018-04-29 15:00 | NUR ---
dr reveles making rounds, no changes in condition or care.
--- NOTE | 2018-04-29 16:00 | NUR ---
dr suresh making rounds and no changes.
--- NOTE | 2018-04-29 18:20 | NUR ---
continues obtunded, does not follow instructions, family at bedside. vs recorded.
--- NOTE | 2018-04-29 19:06 | NUR ---
report given, no questions at this time.
--- NOTE | 2018-04-29 19:40 | NUR ---
Dr Willoughby was called and notified of low BP 68/54 and 77/54. New orders received
[2018-04-29] MEDS ORDERED: VASOPRESSIN 100 UNIT in DEXTROSE 5% 100ML 100 ML IV SCH (19:45)
--- NOTE | 2018-04-29 22:00 | NUR ---
Dr Willoughby was called back and notified that BP remains low with Vasopressin admin X > 2hrs. New orders received
[2018-04-29] MEDS: NOREPINEPHRINE INJ 4MG/4ML 8 MG in DEXTROSE 5% 250ML 250 ML IV SCH ×2 (22:15→22:30)
[2018-04-29] MEDS ORDERED: NOREPINEPHRINE 8 MG/D5W 250 ML 250 ML ONE (22:20)
[2018-04-29] MEDS ORDERED: SODIUM CHLORIDE 0.9% 500ML 500 ML ONE (22:20)
[2018-04-29] MEDS ORDERED: SODIUM CHLORIDE 0.9% 1000ML 1,000 ML IV SCH (22:30)
--- NOTE | 2018-04-29 22:58 | Diagnostic Imaging Report ---
EXAMINATION: CHEST SINGLE (PORTABLE) INDICATION: ^Hypotension ^[id number] ^2230 COMPARISON: 04/27/2018 FINDINGS: AP view TUBES and LINES: Interval extubation. Stable nasogastric tube and right internal jugular central line. LUNGS: Lungs are well inflated. Pulmonary vascular congestion and moderate interstitial edema. PLEURA: No pneumothorax. Moderate left pleural effusion, increased from prior exam. HEART AND MEDIASTINUM: The cardiomediastinal silhouette is unremarkable. BONES AND SOFT TISSUES: No acute osseous lesion. Soft tissues are unremarkable. UPPER ABDOMEN: No free air under the diaphragm. IMPRESSION: Pulmonary vascular congestion and moderate interstitial edema, increased from prior x-ray. Moderate size left pleural effusion, increased from prior x-ray. Superimposed pneumonia cannot be excluded. Signed by: Dr. Allen Ferrari MD on 04/29/2018 10:55 PM
[2018-04-30] VITALS: BP 58/48
[2018-04-30] MEDS: METOCLOPRAMIDE HCL 10 MG/2ML VIAL IV SCH ×2 (00:20)
--- NOTE | 2018-04-30 00:31 | NUR ---
Max Levophed dose achieved. SBP remains in the 70-80s. notified Primary RN and ammonia nitrate operator that she does not want to re-intubate, shock or CPR. DR Willoughby was notified and status was changed to Full DNR
[2018-04-30] MEDS: HYDROMORPHONE 2MG/ML 2 MG/ML ML IV PRN (00:55)
--- NOTE | 2018-04-30 01:00 | NUR ---
Pt in Asystole. Family @ . ER notified. House Sup. Notified
--- NOTE | 2018-04-30 06:50 | NUR ---
Chip, Dr Willoughby's PHOTOGRAPHER FINISH notified of pt's passing. He will pass on to Dr Willoughby
== END 2018-04-30 01:04 | disposition expired | DRG 166 ==
LOC: ER 13:24 → ERHOLD 15:59 → IMCU 18:53 → ICU 04-17 18:01
PROVIDERS: ADMIT Internal Medicine; ATTEND Internal Medicine
PROC: 06H03DZ Insertion of Intraluminal Device into Inferior Vena Cava, Percutaneous Approach (ICD-10-PCS; 2018-04-10)
PROC: 02HV33Z Insertion of Infusion Device into Superior Vena Cava, Percutaneous Approach (ICD-10-PCS; 2018-04-19)
PROC: B548ZZA Ultrasonography of Superior Vena Cava, Guidance (ICD-10-PCS; 2018-04-19)
PROC: 5A1955Z Respiratory Ventilation, Greater than 96 Consecutive Hours (ICD-10-PCS; 2018-04-19)
PROC: 0BH17EZ Insertion of Endotracheal Airway into Trachea, Via Natural or Artificial Opening (ICD-10-PCS; 2018-04-19)
PROC: 0BBF3ZX Excision of Right Lower Lung Lobe, Percutaneous Approach, Diagnostic (ICD-10-PCS; principal; 2018-04-21)
DX: C34.31 Malignant neoplasm of lower lobe, right bronchus or lung (principal); J96.21 Acute and chronic respiratory failure with hypoxia; I26.99 Other pulmonary embolism without acute cor pulmonale; J95.851 Ventilator associated pneumonia; N10 Acute pyelonephritis; E87.1 Hypo-osmolality and hyponatremia; I31.3 Pericardial effusion (noninflammatory); C77.9 Secondary and unspecified malignant neoplasm of lymph node, unspecified; C79.51 Secondary malignant neoplasm of bone; J44.1 Chronic obstructive pulmonary disease with (acute) exacerbation; N17.9 Acute kidney failure, unspecified; B37.0 Candidal stomatitis; R33.9 Retention of urine, unspecified; Z87.442 Personal history of urinary calculi; Z86.711 Personal history of pulmonary embolism; E78.5 Hyperlipidemia, unspecified; Z87.01 Personal history of pneumonia (recurrent); Z87.891 Personal history of nicotine dependence; D64.9 Anemia, unspecified; I12.9 Hypertensive chronic kidney disease with stage 1 through stage 4 chronic kidney disease, or unspecified chronic kidney disease; N18.3 Chronic kidney disease, stage 3 (moderate); E86.0 Dehydration; E83.51 Hypocalcemia; R74.0 Nonspecific elevation of levels of transaminase and lactic acid dehydrogenase [LDH]; D69.6 Thrombocytopenia, unspecified; R51 Headache; Z79.01 Long term (current) use of anticoagulants; E83.41 Hypermagnesemia; B96.89 Other specified bacterial agents as the cause of diseases classified elsewhere; E87.5 Hyperkalemia; R04.0 Epistaxis; B96.20 Unspecified Escherichia coli [E. coli] as the cause of diseases classified elsewhere; Z16.12 Extended spectrum beta lactamase (ESBL) resistance; N32.89 Other specified disorders of bladder; D63.8 Anemia in other chronic diseases classified elsewhere; T38.0X5A Adverse effect of glucocorticoids and synthetic analogues, initial encounter; Z66 Do not resuscitate
CPT/HCPCS: 10009; 32405; 36415; 36600; 37191; 51700; 71045; 71250; 74018; 74176; 74230; 74470; 75825; 76604; 76770; 80048; 80053; 80202; 81001; 81015; 82308; 82550; 82553; 82805; 83036; 83605; 83735; 83880; 84100; 84145; 84439; 84443; 84484; 85014; 85018; 85025; 85384; 85610; 85730; 87040; 87070; 87086; 87186; 87205; 87385; 87400; 87449; 88112; 88172; 88173; 88305; 88342; 93005; 93306; 94002; 94003; 94640; 94660; 96367; 96372; 99284; J0330; J0456; J0610; J0692; J0696; J1450; J1644; J1650; J1940; J2001; J2060; J2250; J2270; J2405; J2765; J2920; J2930; J3370; J7030; J7040; J7050; Q9967